=== PATIENT | male | born 1935 | race Caucasian/White ===

== ENCOUNTER 2018-02-18 10:41 | Day surgery (SDC) | payer MEDICARE, OTHER ==
[2018-02-17 10:36] VITALS: BMI 29.0
--- NOTE | 2018-02-18 06:32 | HP ---
HISTORY AND PHYSICAL CHIEF COMPLAINT: Fluid in the left middle ear space. HISTORY OF PRESENT ILLNESS: The patient is a pleasant 82-year-old male who was recently seen in my office complaining of having a plugged sensation in his left ear. At the time that the patient was seen in the office, clinical examination revealed fluid in the left middle ear space. The patient was placed on a course of oral steroids for approximately 2 weeks and then he was re-evaluated. 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 It was therefore recommended that he undergo a left myringotomy with insertion of ventilation tube, specifically a Michaela T-tube. The purpose of placing this tube in is because I advised the patient that if in fact there is no fluid and if the tube needs to be removed because it causes problems then this could be done with this type of tube. 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 PAST MEDICAL HISTORY: Past medical history reveals that the patient has no known allergies to medications. His current medications include sertraline, enalapril, donepezil and atorvastatin. REVIEW OF SYSTEMS: Review of systems reveals the cardiovascular system is positive for hypertension. Metabolic endocrine system is positive for hypercholesterolemia. The remainder of the review of systems is essentially unremarkable. PREVIOUS SURGERIES: Previous surgeries include a right tympanoplasty with mastoidectomy, bilateral cataract surgery, left herniorrhaphy. PHYSICAL EXAMINATION: Patient is a very pleasant 82-year-old male who is alert and cooperative. HEENT EXAMINATION: Patient is normocephalic. Right tympanic membrane is normal. Right middle ear space is free of any fluid or infection. Left tympanic membrane appears to be dull with suggestion of fluid in the left middle ear space. Pupils equal, round, and react to light and accommodation. Extraocular movements are within normal limits. Intranasal examination reveals moderate to severe septal deviation with compensatory hypertrophy of the inferior turbinates. Examination of oropharynx, cranial nerves 2 through 12 and the remainder of the head and neck exam are all within normal limits. CHEST/CARDIOVASCULAR: Both lung velez are clear to percussion and auscultation. The patient is in regular sinus rhythm. S1 and S2 are present without evidence of any murmurs, S3s or S4s. Peripheral pulses are bilaterally symmetrical and within normal limits. ABDOMEN: There is no evidence the masses megaly or tenderness. The abdomen is soft. Skin is unremarkable. Musculoskeletal and neurological are within normal limits. RECTAL EXAM: The rectal exam is deferred at this time because the patient has this done on a regular basis at his family physician's office. The remainder of the physical exam is unremarkable. IMPRESSION: Chronic left serous otitis media. PLAN: The patient is scheduled to undergo a left myringotomy with insertion of Michaela type T- type under either IV sedation with MAC or general anesthesia depending upon the anesthesia department's preference in the a.m. ATTENTION RNS IN THE PRE-SURGICAL AREA: I have not ordered any pre-surgical prophylactic antibiotics for this patient. If the pharmacy department sends any pre- surgical prophylactic antibiotics to the pre-surgical area for this patient, that order should be cancelled, the medication should be returned to the pharmacy, and make sure that the patient's account is credited appropriately. I have discussed the risks, benefits and alternative therapies for the above-mentioned procedure and for both sedation/analgesia as well as necessary blood product administration, if indicated, as they pertain to this patient. The patient has indicated his or her understanding and acceptance of the risks and procedures discussed. MMODL / IJN: [id number] /
[~2018-02-18 10:41] MED LIST: DEXAMETHASONE SOD PHOSPHATE 10 MG/ML 1 ML VIAL IV ONE; LACTATED RINGERS 1,000 ML IV SCH; LIDOCAINE 1% 20 ML VIAL (10MG/ML) FOR IV START INTRADERMA PRN; MIDAZOLAM 2 MG/2 ML VIAL IV PRN; ONDANSETRON 4 MG/2 ML VIAL IVP ONE; Pre Op ABX Message 1 EACH MISC MISCELLANE ONE; fentaNYL (PF) 50 MCG/ML 2 ML AMP IV PRN
[2018-02-18 12:37] VITALS: RESP 16
[2018-02-18] MEDS ORDERED: PROPOFOL 10 MG/ML 20 ML VIAL IV ONE (13:27)
[2018-02-18] MEDS ORDERED: MIDAZOLAM 2 MG/2 ML VIAL ONE (13:27)
[2018-02-18] MEDS ORDERED: ePHEDrine SULFATE/0.9% NACL/PF 50 MG/5 ML SYRINGE IV ONE (13:27)
[2018-02-18] MEDS ORDERED: OFLOXACIN 0.3% OPHTH DROPS 5 ML BOTTLE LEFT EAR ONE ×2 (13:41→13:55)
[2018-02-18] MEDS ORDERED: EPINEPHrine 1 MG/ML 1 ML AMP IRRIGATION ONE (13:54)
[2018-02-18 14:25] VITALS: TEMP 96.9
[2018-02-18 15:30] VITALS: BP 123/63; PULSE 46
--- NOTE | 2018-02-19 18:15 | OP ---
OPERATIVE REPORT DATE OF SURGERY: 02/18/2018. PREOP: Chronic left serous otitis media. POSTOPERATIVE DIAGNOSIS: Chronic left serous otitis media. ANESTHESIA: IV sedation with MAC. OPERATIVE PROCEDURE: Left myringotomy with insertion of Michaela type T-tube. SURGEON: Dr. Edmondson. COMPLICATIONS: None. ESTIMATED BLOOD LOSS: Zero. OPERATIVE PROCEDURE: The patient was placed on operating table in the supine position and after uneventful IV sedation, satisfactory sedation was obtained. Next the patient's left ear was draped in the appropriate fashion. Following this, using the Zeiss operating microscope and a #3 aural speculum, the left external auditory canal was cleansed of all wax and debris. Next, an incision was made in the anterior inferior quadrant of the left tympanic membrane. Initially, there was significant amount of bleeding and therefore the canal was irrigated with approximately 1 mL of epinephrine 1:100,000 to establish hemostasis. Following this, the previously made incision was slightly enlarged to accommodate the T-tube. Next, the Michaela -type T-tube was grasped with a pair of alligator forceps and was carefully inserted into the previously made myringotomy incision without difficulty. It is to be noted that there was a significant amount of scar tissue on the patient's tympanic membrane from previous ear infections as a child. At this point, the procedure was terminated. There were no intraoperative complications. The patient tolerated the procedure well and was returned to the recovery room in satisfactory condition. MMLUANA / UZMA: [id number] /
== END 2018-02-18 15:55 | disposition home or self-care (01) ==
LOC: OR 10:41
PROVIDERS: ATTEND Otolaryngology
DX: H65.22 Chronic serous otitis media, left ear (principal); I10 Essential (primary) hypertension; E78.5 Hyperlipidemia, unspecified; Z79.899 Other long term (current) drug therapy
CPT/HCPCS: 69436; J2250; J0171; J1100; J2405; J2704

== ENCOUNTER → 2020-09-27 | Outpatient (CLI) | payer MEDICARE, OTHER ==
[2020-09-27 20:35] LABS: HCT 39.2 % (39.6-50.0); HGB 12.3 g/dL (13.0-17.0); MCH 29.4 pg (27.0-32.0); MCHC 31.4 g/dL (32.0-37.0); MCV 93.8 fL (80.0-97.0); Mean Platelet Volume 12.3 fL (9.5-12.2); Platelet Count 261 X 10*3/uL (140-440); RBC 4.18 X 10*6/uL (4.40-5.60); RDW 12.9 % (11.5-14.5); WBC 6.19 X 10*3/uL (4.50-10.00)
[2020-09-27 21:36] LABS: African American GFR (CKD) 70.1 (60.0-200.0); Albumin/Globulin Ratio 2.11 (1.60-3.17); Anion Gap 6.1 mmol/L (4.00-12.00); BUN/Creat Ratio 22.73 Ratio (12.00-20.00); Calcium 9.4 mg/dL (8.7-10.3); Carbon Dioxide 25.9 mmol/L (21.6-31.8); Globulin 1.9 g/dL (1.6-3.3); Non-African American GFR(CKD) 60.5 (60.0-200.0); Potassium 4.7 mmol/L (3.5-5.5); Total Bilirubin 0.3 mg/dL (0.3-1.2); Total Protein 5.9 g/dL (6.2-8.2)
[2020-09-27 23:27] LABS: Folate, Serum 13.2 ng/mL
== END | disposition home or self-care (01) ==
LOC: LABWHC1 10:15
PROVIDERS: ATTEND Psychiatry & Neurology Pain Medicine
DX: R41.3 Other amnesia (principal); E55.9 Vitamin D deficiency, unspecified; D64.9 Anemia, unspecified
CPT/HCPCS: 36415; 80053; 82607; 82652; 82746; 83090; 84439; 84443; 84481; 85027

== ENCOUNTER 2021-02-10 12:21 | Inpatient (IN) | payer MEDICARE, OTHER ==
--- NOTE | 2021-02-10 13:16 | ED ---
General Adult HPI - General Chief complaint: Nausea/Vomiting/Diarrhea Stated complaint: Bradycardia Time Seen by Provider: 02/10/21 12:27 Source: EMS Mode of arrival: EMS Limitations: altered mental status - History of Present Illness Initial comments: Dictation was produced using [employer] dictation software. please excuse any grammatical, word or spelling errors. Chief Complaint: 85-year-old male presents with episode of nausea and groin pain since today History of Present Illness: 85-year-old value breakfast this morning. After breakfast he started having significant nausea. He states his nausea is associated diaphoresis. Denies any vomiting. Patient has been struggling with groin pain for the last several months. Back in April he coughed really hard because of Covid and cause a hernia to his right inguinal area. Patient has not seen a surgeon regarding this. He has been having intermittent episodes of right-sided groin pain since April. Patient states that he feels nauseated. Denies any significant abdominal pain at the moment. Groin pain appears to be stable for the last several weeks. The ROS documented in this emergency department record has been reviewed and confirmed by me. Those systems with pertinent positive or negative responses have been documented in the HPI. All other systems are other negative and/or noncontributory. PHYSICAL EXAM: General Impression: Alert and oriented x3, not in acute distress HEENT: Normocephalic atraumatic, extra-ocular movements intact, pupils equal and reactive to light bilaterally, mucous membranes moist. Cardiovascular: Heart regular rate and rhythm Chest: Able to complete full sentences, no retractions, no tachypnea Abdomen: abdomen soft, non-tender, non-distended, no organomegaly, bulge at the right inguinal area. There is a hernia noted. Hernia is reducible. Musculoskeletal: Pulses present and equal in all extremities, no peripheral karin a Motor: no focal deficits noted Neurological: CN II-XII grossly intact, no focal motor or sensory deficits noted Skin: Intact with no visualized rashes Psych: Normal affect and mood ED course: 85-year-old male presents to emergency department for nausea. Signs upon arrival shows heart rate of 49, worse vital signs within acceptable limits. Laboratory evaluation obtained. CBC unremarkable. Coag panel is negative. Metabolic panel is within acceptable limits. Slight dehydration with elevated BUN to 29. Rest metabolic panel is unremarkable. Abdominal x-ray shows ileus versus obstruction. Patient reevaluated at bedside at 2 PM found to be in stable medical condition. Is not actively nauseated. Patient be admitted to [facility] with general surgeon on consult. Family requested Dr. Becker. Case discussed with [place] nurse practitioner for [facility]. She is willing to accept patient care. EKG interpretation: Ventricular rate 40, sinus bradycardia, MN interval 180, QRS 104, QTC 435. No MN prolongation, no QTC prolongation, no ST or T-wave changes noted. Note EKG for comparison. No evidence of heart block. QRS is narrow. - Related Data Home Medications Medication Instructions Recorded Confirmed Atorvastatin [Lipitor] 20 mg PO DAILY 02/17/18 02/18/18 Donepezil [Aricept] 10 mg PO DAILY 02/17/18 02/18/18 Enalapril Maleate [Vasotec] 2.5 mg PO DAILY 02/17/18 02/18/18 Labetalol HCl 100 mg PO BID 02/17/18 02/18/18 Sertraline [Zoloft] 100 mg PO BID 02/17/18 02/18/18 Allergies Allergy/AdvReac Type Severity Reaction Status Date / Time No Known Allergies Allergy Verified 02/10/21 14:01 Review of Systems ROS Statement: Those systems with pertinent positive or pertinent negative responses have been documented in the HPI. ROS Other: All systems not noted in ROS Statement are negative. Past Medical History Past Medical History: Hypertension Additional Past Medical History / Comment(s): HYPOGLYCEMIA, SELF CATHETERIZAT ION, History of Any Multi-Drug Resistant Organisms: None Reported Past Surgical History: Prostate Surgery Past Anesthesia/Blood Transfusion Reactions: No Reported Reaction Past Psychological History: Anxiety Past Alcohol Use History: Occasional Past Drug Use History: None Reported - Past Family History Mother Family Medical History: No Reported History General Exam Limitations: altered mental status Course Vital Signs 02/10/21 12:33 Temperature 97.6 F Pulse Rate 49 L Respiratory 16 Rate Blood Pressure 135/65 O2 Sat by Pulse 94 L Oximetry Medical Decision Making - Lab Data Result diagrams: 02/10/21 13:12 02/10/21 13:12 Lab Results 02/10/21 02/10/21 02/10/21 Range/Units 13:12 13:12 13:12 WBC 6.9 (3.8-10.6) k/uL RBC 3.87 L (4.30-5.90) m/uL Hgb 12.3 L (13.0-17.5) gm/dL Hct 37.1 L (39.0-53.0) % MCV 95.8 (80.0-100.0) fL MCH 31.6 (25.0-35.0) pg MCHC 33.0 (31.0-37.0) g/dL RDW 13.8 (11.5-15.5) % Plt Count 197 (150-450) k/uL MPV 9.6 Neutrophils % 75 % Lymphocytes % 15 % Monocytes % 6 % Eosinophils % 2 % Basophils % 1 % Neutrophils # 5.2 (1.3-7.7) k/uL Lymphocytes # 1.1 (1.0-4.8) k/uL Monocytes # 0.4 (0-1.0) k/uL Eosinophils # 0.2 (0-0.7) k/uL Basophils # 0.0 (0-0.2) k/uL PT 10.9 (9.0-12.0) sec INR 1.0 (<1.2) APTT 22.3 (22.0-30.0) sec Sodium 138 (137-145) mmol/L Potassium 4.5 (3.5-5.1) mmol/L Chloride 107 (98-107) mmol/L Carbon Dioxide 25 (22-30) mmol/L Anion Gap 6 mmol/L BUN 29 H (9-20) mg/dL Creatinine 1.21 (0.66-1.25) mg/dL Est GFR (CKD-EPI)AfAm 63 (>60 ml/min/1.73 sqM) Est GFR (CKD-EPI)NonAf 54 (>60 ml/min/1.73 sqM) Glucose 117 H (74-99) mg/dL Plasma Lactic Acid Gurvinder (0.7-2.0) mmol/L Calcium 9.2 (8.4-10.2) mg/dL Magnesium 2.0 (1.6-2.3) mg/dL Total Bilirubin 0.3 (0.2-1.3) mg/dL AST 32 (17-59) U/L ALT 16 (4-49) U/L Alkaline Phosphatase 44 (38-126) U/L Total Protein 5.9 L (6.3-8.2) g/dL Albumin 3.6 (3.5-5.0) g/dL Lipase 133 (23-300) U/L 02/10/21 Range/Units 13:12 WBC (3.8-10.6) k/uL RBC (4.30-5.90) m/uL Hgb (13.0-17.5) gm/dL Hct (39.0-53.0) % MCV (80.0-100.0) fL MCH (25.0-35.0) pg MCHC (31.0-37.0) g/dL RDW (11.5-15.5) % Plt Count (150-450) k/uL MPV Neutrophils % % Lymphocytes % % Monocytes % % Eosinophils % % Basophils % % Neutrophils # (1.3-7.7) k/uL Lymphocytes # (1.0-4.8) k/uL Monocytes # (0-1.0) k/uL Eosinophils # (0-0.7) k/uL Basophils # (0-0.2) k/uL PT (9.0-12.0) sec INR (<1.2) APTT (22.0-30.0) sec Sodium (137-145) mmol/L Potassium (3.5-5.1) mmol/L Chloride (98-107) mmol/L Carbon Dioxide (22-30) mmol/L Anion Gap mmol/L BUN (9-20) mg/dL Creatinine (0.66-1.25) mg/dL Est GFR (CKD-EPI)AfAm (>60 ml/min/1.73 sqM) Est GFR (CKD-EPI)NonAf (>60 ml/min/1.73 sqM) Glucose (74-99) mg/dL Plasma Lactic Acid Gurvinder 1.2 (0.7-2.0) mmol/L Calcium (8.4-10.2) mg/dL Magnesium (1.6-2.3) mg/dL Total Bilirubin (0.2-1.3) mg/dL AST (17-59) U/L ALT (4-49) U/L Alkaline Phosphatase (38-126) U/L Total Protein (6.3-8.2) g/dL Albumin (3.5-5.0) g/dL Lipase (23-300) U/L Disposition Clinical Impression: Ileus Disposition: ADMITTED IP TO THIS HOSP Condition: Fair Referrals: Chapincito Lee MD [Primary Care Provider] - 1-2 days
[2021-02-10 13:31] LABS: Basophils % (A) 1 %; Eosinophils # (A) 0.2 k/uL (0-0.7); Eosinophils % (A) 2 %; HCT 37.1 % (39.0-53.0); HGB 12.3 gm/dL (13.0-17.5); Lymphocytes # (A) 1.1 k/uL (1.0-4.8); Lymphocytes % (A) 15 %; MCH 31.6 pg (25.0-35.0); MCV 95.8 fL (80.0-100.0); Mean Platelet Volume 9.6; Monocytes # (A) 0.4 k/uL (0-1.0); Monocytes % (A) 6 %; Neutrophils # (A) 5.2 k/uL (1.3-7.7); Neutrophils % (A) 75 %; Platelet Count 197 k/uL (150-450); RBC 3.87 m/uL (4.30-5.90); RDW 13.8 % (11.5-15.5); WBC 6.9 k/uL (3.8-10.6)
[2021-02-10 13:40] LABS: Albumin 3.6 g/dL (3.5-5.0); Calcium 9.2 mg/dL (8.4-10.2); Potassium 4.5 mmol/L (3.5-5.1); Total Bilirubin 0.3 mg/dL (0.2-1.3); Total Protein 5.9 g/dL (6.3-8.2)
[2021-02-10 13:47] LABS: Partial Thromboplastin Time 22.3 sec (22.0-30.0); Prothrombin Time 10.9 sec (9.0-12.0)
--- NOTE | 2021-02-10 13:52 | XR ---
EXAMINATION TYPE: XR abdomen acute w cxr DATE OF EXAM: 02/10/2021 COMPARISON: NONE HISTORY: Nausea RLQ pain TECHNIQUE: Supine, upright, and left side down lateral decubitus views of the abdomen are obtained. FINDINGS: Arthropathy of the shoulders. Hyperinflation. Heart size normal. No overt failure or pleura l effusion. No pneumothorax. Chronic rib deformities noted. Calcification suspected within the prostate. Additional vascular calcifications noted. Arthropathy of the shoulders degenerative changes spine. There are dilated bowel loops in the abdomen. IMPRESSION: Correlate for ileus or obstruction.
[2021-02-10] MEDS ORDERED: NALOXONE 0.4 MG/ML 1 ML VIAL IV PRN ×2 (14:02→14:03)
[2021-02-10] MEDS ORDERED: ONDANSETRON 4 MG/2 ML VIAL IVP PRN (14:02)
[2021-02-10] MEDS ORDERED: MELATONIN 3 MG TABLET PO PRN (14:03)
[2021-02-10] MEDS ORDERED: HYDROcodone/APAP 5-325MG 1 EACH TAB PO PRN (14:03)
[2021-02-10] MEDS ORDERED: ACETAMINOPHEN TAB 325 MG TAB PO PRN (14:03)
[2021-02-10] MEDS ORDERED: SODIUM CHLORIDE 0.9% 1,000 ML IV SCH (14:15)
[2021-02-10] MEDS ORDERED: IPRATROPIUM-ALBUTEROL 3 ML NEB INHALATION PRN (14:19)
[2021-02-10] MEDS: SODIUM CHLORIDE 0.9% 1,000 ML IV SCH (14:55)
--- NOTE | 2021-02-10 15:50 | P.HPIM ---
<Calvin Swain - Last Filed: 02/10/21 16:54> History of Present Illness H&P Date: 02/10/21 History of Presenting Illness: Patient is a very pleasant 85-year-old male with a past medical history of hypertension, hyperlipidemia, inguinal hernia and BPH with urinary retention resulting in need for daily self-catheterization. Patient presented to the emergency department with a chief complaint of right lower quadrant abdominal pain radiating into his right groin accompanied by significant nausea. He was seen and fully evaluated in the emergency department. Acute abdominal x-ray series was completed concerning for ileus versus obstruction. CBC, BMP, coags, liver profile, and lipase showing no significant abnormalities. EKG completed revealing sinus bradycardia at 48 bpm with no noted T-wave or ST abnormalities, no previous EKGs available for comparison. Patient currently reports mild discomfort to right lower quadrant and groin described more as an aching sensation. He states nausea currently has resided. He denies having any other complaints at this time including recent fevers, headache, diaphoresis, chills, lightheadedness, dizziness, chest pain, palpitations, shortness of breath, or dyspnea with exertion. Patient denies having any episodes of vomiting and reports normal bowel function was last bowel movement being yesterday morning. Patient does report coughing yesterday and feeling a "pop" in his right lower quadrant but denies having any pain or nausea until this morning. Review of systems: Pertinent positives and negatives as discussed in HPI, a complete review of systems was performed and all other systems are negative. Physical exam: Vital signs reviewed and stable. General: Nontoxic, no distress and appears stated age. Derm: Skin warm and dry, normal coloration for ethnicity. Head: Atraumatic, normocephalic and symmetric. Eyes: EOMs intact, no lid lag, and anicteric sclera Mouth: no lip lesions, mucus membranes moist Cardiovascular: regular rate and rhythm with normal S1S2, soft murmur present, positive posterior tibial pulses bilaterally, and cap refill < 2 seconds. Lungs: Respirations even, regular, and unlabored on room air. Lungs CTA bilaterally, no rhonchi, no rales, no wheezing, and no accessory muscle usage. Abdominal: soft, slight tenderness to right lower quadrant upon palpation, no guarding, no appreciable organomegaly Ext: ROM intact. No gross muscle atrophy, no edema, no contractures Neuro: Speech clear, face symmetrical and CN II-XII grossly intact with no noted focal neuro deficits Psych: Alert and oriented to person, place, time, and situation. Appropriate and pleasant affect. Assessment and Plan of Care: Right lower quadrant abdominal/groin pain accompanied by nausea concerning for ileus versus obstruction -Acute abdominal x-ray series was completed concerning for ileus versus obstruction. -Gen. surgery consulted. -NPO until cleared by general surgery. -Continued hydration with IV fluids. -Symptomatic care and pain management with Zofran as needed for nausea/vomiting and workup was needed for pain. Hypertension Monitor vital signs and continue daily medication regimen with lisinopril Hyperlipidemia Continue daily medication regimen with atorvastatin. The patient is admitted with an anticipated greater than 2 midnight stay for evaluation of ileus versus obstruction. CODE STATUS: Full code DVT prophylaxis: Heparin Discussed with: Patient, RN, and patient's . Anticipated discharge date: Clinical course to determine Anticipated discharge place: Home A total of 45 minutes was spent on the care of this complex patient more than 50% of the time was spent in counseling and care coordination. Past Medical History Past Medical History: Hypertension Additional Past Medical History / Comment(s): HYPOGLYCEMIA, SELF CATHETERIZATION, History of Any Multi-Drug Resistant Organisms: None Reported Past Surgical History: Prostate Surgery Past Anesthesia/Blood Transfusion Reactions: No Reported Reaction Past Psychological History: Anxiety Past Alcohol Use History: Occasional Past Drug Use History: None Reported - Past Family History Mother Family Medical History: No Reported History Medications and Allergies Home Medications Medication Instructions Recorded Confirmed Type Atorvastatin [Lipitor] 20 mg PO DAILY 02/17/18 02/10/21 History Enalapril [Vasotec] 5 mg PO DAILY 02/10/21 02/10/21 History HYDROcodone/APAP 5-325MG [[place] 1 tab PO AC-TID 02/10/21 02/10/21 History 5-325] Ipratropium-Albuterol Nebulize 3 ml INHALATION RT-TID PRN 02/10/21 02/10/21 History [Duoneb 0.5 mg-3 mg/3 ml Soln] Memantine [Namenda] 10 mg PO BID 02/10/21 02/10/21 History Polyethylene Glycol 3350 [Miralax] 17 gm PO DAILY PRN 02/10/21 02/10/21 History Primidone [Mysoline] 50 mg PO HS 02/10/21 02/10/21 History Sertraline [Zoloft] 50 mg PO BID-W/MEALS 02/10/21 02/10/21 History Allergies Allergy/AdvReac Type Severity Reaction Status Date / Time No Known Allergies Allergy Verified 02/10/21 14:01 Physical Exam Vitals: Vital Signs Temp Pulse Resp BP Pulse Ox 02/10/21 14:46 56 L 18 115/63 97 02/10/21 12:33 97.6 F 49 L 16 135/65 94 L Intake and Output 02/10/21 02/10/21 02/10/21 06:59 14:59 22:59 Other: Weight 77.111 kg Results CBC & Chem 7: 02/10/21 13:12 02/10/21 13:12 Labs: Abnormal Lab Results - Last 24 Hours (Table) 02/10/21 02/10/21 Range/Units 13:12 13:12 RBC 3.87 L (4.30-5.90) m/uL Hgb 12.3 L (13.0-17.5) gm/dL Hct 37.1 L (39.0-53.0) % BUN 29 H (9-20) mg/dL Glucose 117 H (74-99) mg/dL Total Protein 5.9 L (6.3-8.2) g/dL <[email or web address] - Last Filed: 02/10/21 17:49> Physical Exam Vitals: Vital Signs Temp Pulse Resp BP Pulse Ox 02/10/21 17:25 74 18 133/55 95 02/10/21 16:58 60 02/10/21 16:48 60 02/10/21 14:46 56 L 18 115/63 97 02/10/21 12:33 97.6 F 49 L 16 135/65 94 L Intake and Output 02/10/21 02/10/21 02/10/21 06:59 14:59 22:59 Other: Weight 77.111 kg Results CBC & Chem 7: 02/10/21 13:12 02/10/21 13:12 Labs: Abnormal Lab Results - Last 24 Hours (Table) 02/10/21 02/10/21 Range/Units 13:12 13:12 RBC 3.87 L (4.30-5.90) m/uL Hgb 12.3 L (13.0-17.5) gm/dL Hct 37.1 L (39.0-53.0) % BUN 29 H (9-20) mg/dL Glucose 117 H (74-99) mg/dL Total Protein 5.9 L (6.3-8.2) g/dL Assessment and Plan Assessment: Patient was seen, evaluated, and examined by me in the ER. Patient appears comfortable when I saw him. He just had a bowel movement prior to my evaluation. Patient said that his right inguinal hernia is often times painful and get worse when he is constipated. He denies any nausea or vomiting. Abdominal x-ray showed possible bowel obstruction but physical exam showed no distention. The abdomen was soft and nontender. Patient has some underlying dementia and his at bedside is taking charge of his care. She told me that they attempted to see Dr. Palumbo in the office sooner but could not find an appointment. She requested Dr. Hadley to see the patient in the hospital. I dis cussed the case over the phone with the surgeon. Plan to obtain computed tomography scan of the abdomen and pelvis for further evaluation. I would keep the patient nothing by mouth for now and continue IV fluid hydration.
[2021-02-10] MEDS: SERTRALINE 50 MG TAB PO SCH (18:23)
[2021-02-10] MEDS: PRIMIDONE 50 MG TAB PO SCH (20:52)
[2021-02-10] MEDS: HEPARIN SODIUM,PORCINE/PF 5,000 UNIT/0.5 ML SYRINGE SQ SCH (20:52)
[2021-02-10] MEDS: MEMANTINE 10 MG TAB PO SCH (20:52)
[2021-02-11] MEDS: SODIUM CHLORIDE 0.9% 1,000 ML IV SCH ×4 (02:44→23:05)
[2021-02-11 06:29] LABS: Basophils % (A) 1 %; Eosinophils # (A) 0.1 k/uL (0-0.7); Eosinophils % (A) 3 %; HCT 36.3 % (39.0-53.0); HGB 11.9 gm/dL (13.0-17.5); Lymphocytes # (A) 1.3 k/uL (1.0-4.8); Lymphocytes % (A) 26 %; MCH 31.4 pg (25.0-35.0); MCHC 32.9 g/dL (31.0-37.0); MCV 95.4 fL (80.0-100.0); Mean Platelet Volume 9.7; Monocytes # (A) 0.4 k/uL (0-1.0); Monocytes % (A) 8 %; Neutrophils % (A) 61 %; Platelet Count 178 k/uL (150-450); RDW 13.5 % (11.5-15.5)
[2021-02-11] MEDS: SERTRALINE 50 MG TAB PO SCH ×2 (06:39→18:01)
[2021-02-11] MEDS ORDERED: IOPAMIDOL CONTRAST (ORAL USE) VIAL PO PRN (07:00)
--- NOTE | 2021-02-11 09:24 | P.PN ---
<Calvin Swain - Last Filed: 02/11/21 14:40> Subjective Progress Note Date: 02/11/21 Hospital course: Patient is a very pleasant 85-year-old male with a past medical history of hyp ertension, hyperlipidemia, inguinal hernia and BPH with urinary retention resulting in need for daily self-catheterization. Patient presented to the emergency department with a chief complaint of right lower quadrant abdominal pain radiating into his right groin accompanied by significant nausea. He was seen and fully evaluated in the emergency department. Acute abdominal x-ray series was completed concerning for ileus versus obstruction. CBC, BMP, coags, liver profile, and lipase showing no significant abnormalities. EKG completed revealing sinus bradycardia at 48 bpm with no noted T-wave or ST abnormalities, no previous EKGs available for comparison. Patient denied having any episodes of vomiting and reported normal bowel function with last bowel movement being the morning of 02/09/21. Patient does report coughing on 02/09/21 and feeling a "pop" in his right lower quadrant but denies having any pain or nausea until the morning of 02/10/21. Physical exam: Patient seen and fully evaluated at the bedside. He reports continued pain/discomfort to right groin that he describes today as being sharp and denies having any other complaints at this time including headache, diaphoresis, chills, lightheadedness, dizziness, chest pain, palpitations, shortness of breath, dyspnea with exertion, nausea, or vomiting. Vital signs reviewed and stable. General: Nontoxic, no distress and appears stated age. Derm: Skin warm and dry, normal coloration for ethnicity. Head: Atraumatic, normocephalic and symmetric. Eyes: EOMs intact, no lid lag, and anicteric sclera Mouth: no lip lesions, mucus membranes moist Cardiovascular: regular rate and rhythm with normal S1S2, soft murmur present, positive posterior tibial pulses bilaterally, and cap refill < 2 seconds. Lungs: Respirations even, regular, and unlabored on room air. Lungs CTA bilaterally, no rhonchi, no rales, no wheezing, and no accessory muscle usage. Abdominal: soft, slight tenderness to right lower quadrant and groin upon light palpation, no guarding, no appreciable organomegaly Ext: ROM intact. No gross muscle atrophy, no edema, no contractures Neuro: Speech clear, face symmetrical and CN II-XII grossly intact with no noted focal neuro deficits Psych: Alert and oriented to person, place, time, and situation. Appropriate and pleasant affect. Assessment and Plan of Care: Right lower quadrant abdominal/groin pain accompanied by nausea concerning for ileus versus obstruction -Acute abdominal x-ray series was completed concerning for ileus versus obstruction. -Gen. surgery consulted. -CT abdomen and pelvis revealing severe bladder wall thickening, hypertrophic, or cystitis with thickening along the right fundus unable to rule out neoplasm. Enlarged prostate. Mild circumferential wall thickening to his distal esophagus possibly representing small hiatal hernia or esophagitis. Bilateral renal cysts findings could represent some chronic inflammation or ascending urinary tract infection. Moderate sized right inguinal hernia containing fat and vessels measuring 6.5 cm long some stranding could possibly represent mild inflammation. -Order placed for urinalysis which was positive for infection, urine culture to be obtained. -Continued hydration with IV fluids. -Symptomatic care and pain management with Zofran as needed for nausea/vomiting and workup was needed for pain. Acute cystitis -CT abdomen and pelvis revealing severe bladder wall thickening, hypertrophic, or cystitis with thickening along the right fundus unable to rule out neoplasm. Enlarged prostate. Mild circumferential wall thickening to his distal esophagus possibly representing small hiatal hernia or esophagitis. Bilateral renal cysts findings could represent some chronic inflammation or ascending urinary tract infection. Moderate sized right inguinal hernia containing fat and vessels measuring 6.5 cm long some stranding could possibly represent mild inflammation. -Urinalysis positive for infection, urine culture. -IV antibiotic Rocephin -Bladder management, bladder scan for postvoid residuals -Consult to urology for enlarged prostate and concerns of bladder wall thickening to further evaluate for possible neoplastic process. Hypertension Monitor vital signs and continue daily medication regimen with lisinopril Hyperlipidemia Continue daily medication regimen with atorvastatin. The patient is admitted with an anticipated greater than 2 midnight stay for evaluation of ileus versus obstruction. CODE STATUS: Full code DVT prophylaxis: Heparin Discussed with: Patient and RN Anticipated discharge date: Clinical course to determine Anticipated discharge place: Home A total of 45 minutes was spent on the care of this complex patient more than 50% of the time was spent in counseling and care coordination. Objective - Vital Signs Vital signs: Vital Signs Temp 98.1 F 02/11/21 07:59 Pulse 53 L 02/11/21 07:59 Resp 17 02/11/21 07:59 BP 156/82 02/11/21 07:59 Pulse Ox 96 02/11/21 07:59 Intake & Output 02/10/21 02/11/21 02/11/21 18:59 06:59 18:59 Weight 77.111 kg Other: Voiding Method Self-Catheterization # Voids 1 - Labs CBC & Chem 7: 02/11/21 05:44 02/11/21 05:44 Labs: Abnormal Lab Results - Last 24 Hours (Table) 02/10/21 02/10/21 02/11/21 Range/Units 13:12 13:12 05:44 RBC 3.87 L 3.80 L (4.30-5.90) m/uL Hgb 12.3 L 11.9 L (13.0-17.5) gm/dL Hct 37.1 L 36.3 L (39.0-53.0) % BUN 29 H (9-20) mg/dL Glucose 117 H (74-99) mg/dL Total Protein 5.9 L (6.3-8.2) g/dL <Kayla Foster - Last Filed: 02/11/21 20:00> Subjective Calvin Swain NP rendered care for this patient independently, reviewed the findings and plan as documented in the note above. I did not physically speak with or examine the patient on this date. Objective - Vital Signs Vital signs: Vital Signs Temp 97.8 F 02/11/21 11:51 Pulse 50 L 02/11/21 11:51 Resp 17 02/11/21 11:51 BP 144/73 02/11/21 11:51 Pulse Ox 96 02/11/21 11:51 Intake & Output 02/11/21 02/11/21 02/12/21 06:59 18:59 06:59 Other: Voiding Method Self-Catheterization Self-Catheterization # Voids 1 3 - Labs CBC & Chem 7: 02/11/21 05:44 02/11/21 05:44 Labs: Abnormal Lab Results - Last 24 Hours (Table) 02/11/21 02/11/21 02/11/21 Range/Units 05:44 05:44 12:45 RBC 3.80 L (4.30-5.90) m/uL Hgb 11.9 L (13.0-17.5) gm/dL Hct 36.3 L (39.0-53.0) % Chloride 110 H (96-109) mmol/L BUN/Creatinine Ratio 24.55 H (12.00-20.00) Ratio Calcium 8.5 L (8.7-10.3) mg/dL Alkaline Phosphatase 39 L (41-126) U/L Total Protein 5.5 L (6.2-8.2) g/dL Albumin 3.50 L (3.80-4.90) g/dL Urine Protein Trace H (Negative) Urine Blood Small H (Negative) Ur Leukocyte Esterase Large H (Negative) Urine RBC 8 H (0-5) /hpf Urine WBC 133 H (0-5) /hpf Urine WBC Clumps Few H (None) /hpf Urine Bacteria Occasional H (None) /hpf Urine Mucus Rare H (None) /hpf
[2021-02-11] MEDS: ATORVASTATIN 20 MG TAB PO SCH (09:46)
[2021-02-11] MEDS: HEPARIN SODIUM,PORCINE/PF 5,000 UNIT/0.5 ML SYRINGE SQ SCH ×2 (09:46→21:33)
[2021-02-11] MEDS: lisinopriL 10 MG TAB PO SCH (09:46)
[2021-02-11] MEDS: MEMANTINE 10 MG TAB PO SCH ×2 (09:47→21:33)
--- NOTE | 2021-02-11 10:02 | CT ---
EXAMINATION TYPE: CT abdomen pelvis w con DATE OF EXAM: 02/11/2021 COMPARISON: NONE HISTORY: 85-year-old male abdominal pain, Right inguinal hernia TECHNIQUE: Contiguous axial scanning of the abdomen and pelvis following administration of 100 ml Iso erlin 300 IV contrast. Delayed images through the kidneys and coronal/sagittal reconstructions perform ed. CT DLP: 681.7 mGycm Automated exposure control for dose reduction was used. FINDINGS: Heart normal size without pericardial effusion. Strandy atelectasis in the lower lungs without pleura l effusion. Mild circumferential wall thickening distal esophagus could represent a small hiatal hernia or esopha gitis. Correlate with patient's symptoms. 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 A couple small hypodensities left hepatic dome too small for accurate CT characterization, measuring up to 8 mm, likely small cysts. Portal venous system is patent. No biliary ductal dilatation. Gallbladder, adrenal glands, spleen, and pancreas within normal limits. Bilateral renal cysts, approximately 4 on the right and 6 on the left. In addition, there are bilater al extrarenal pelves. Possible mild urothelial thickening on the left. Slight delay in excretion of c ontrast from both kidneys. Correlate with BUN and creatinine. No dilated small bowel, free fluid, or free air. No mesenteric or retroperitoneal lymphadenopathy. Normal appendix. Scattered colonic diverticulosis, greatest in the left-sided colon. No pericolonic i nflammatory change. Fairly severe bladder wall thickening. Especially with collapsed bladder extending towards the right fundus with greater degree of thickening, refer to coronal image 38 and axial images 58. There is a moderate-sized indirect right inguinal hernia that contains mesenteric fat and vessels maribel suring up to 6.5 cm long. The mild strandy density in this region. Right-sided pelvic phleboliths. Prostate gland is enlarged measuring 5.5 cm wide by 5.5 cm AP by 5.0 cm craniocaudal. Curvilinear calcifications are present within. Bones: Moderate degenerative changes at the hips and SI joints. Baastrup's disease. Moderate degenera tive disc disease throughout hypertrophic facet arthropathy. IMPRESSION: 1. SEVERE BLADDER WALL THICKENING. CORRELATE FOR NEUROGENIC BLADDER, HYPERTROPHY, OR CYSTITIS. THICKE ROBY IS GREATER ALONG THE RIGHT FUNDUS. NEOPLASM SHOULD BE EXCLUDED. CORRELATE WITH URINE CYTOLOGY AN D DIRECT VISUALIZATION INDICATED. 2. ENLARGED PROSTATE GLAND MEASURING UP TO 5.5 CM. CORRELATE WITH PSA VALUES AND PATIENT'S SYMPTOMS T O ASSESS FOR UNDERLYING BPH OR PROSTATE CANCER. 3. MILD CIRCUMFERENTIAL WALL THICKENING DISTAL ESOPHAGUS COULD REPRESENT A SMALL HIATAL HERNIA OR ESO PHAGITIS. CORRELATE WITH PATIENT'S SYMPTOMS TO DETERMINE THE NEED FOR DIRECT VISUALIZATION. 4. BILATERAL RENAL CYSTS MEASURING UP TO 3.3 CM. POSSIBLE SLIGHT UROTHELIAL THICKENING ON THE LEFT. F INDINGS COULD REPRESENT SOME CHRONIC INFLAMMATION OR ASCENDING URINARY TRACT INFECTION. 5. ALSO, DELAY IN EXCRETION OF CONTRAST FROM BOTH KIDNEYS. CORRELATE WITH KIDNEY FUNCTION TO EXCLUDE DANIELE. 6. MODERATE SIZED RIGHT INGUINAL HERNIA CONTAINING FAT AND VESSELS MEASURING 6.5 CM LONG. SOME STRAND ING HERE COULD REPRESENT MILD INFLAMMATION.
[2021-02-11 10:22] LABS: African American GFR (CKD) 70.1 (60.0-200.0); Albumin 3.5 g/dL (3.80-4.90); Albumin/Globulin Ratio 1.75 (1.60-3.17); Anion Gap 6.4 mmol/L (4.00-12.00); BUN/Creat Ratio 24.55 Ratio (12.00-20.00); Calcium 8.5 mg/dL (8.7-10.3); Carbon Dioxide 24.6 mmol/L (21.6-31.8); Magnesium 1.9 mg/dL (1.5-2.4); Non-African American GFR(CKD) 60.5 (60.0-200.0); Potassium 4.2 mmol/L (3.5-5.5); Total Bilirubin 0.4 mg/dL (0.2-1.2); Total Protein 5.5 g/dL (6.2-8.2)
[2021-02-11 13:31] LABS: Appearance,Urine Cloudy (Clear); Bacteria,Urine Occasional /hpf; Bilirubin,Urine Negative (Negative); Blood,Urine Small (Negative); Color,Urine Light Yellow; Glucose,Urine (UA) Negative (Negative); Ketones,Urine Negative (Negative); Leukocyte Esterase,Urine Large (Negative); Mucus,Urine Rare /hpf; Nitrite,Urine Negative (Negative); Protein,Urine Trace (Negative); RBC,Urine 8 /hpf (0-5); Specific Gravity,Urine 1.017 (1.001-1.035); Squamous Epithelial Cell,Urine <1 /hpf (0-4); Urobilinogen,Urine <2.0 mg/dL (<2.0); WBC,Urine 133 /hpf (0-5)
--- NOTE | 2021-02-11 18:02 | P.GSCN ---
History of Present Illness Consult date: 02/11/21 Reason for Consult: Right inguinal hernia History of present illness: Patient came to the hospital complaining of bad nausea and vague abdominal discomfort. Patient has had a hernia right groin since April of last year. Hernia is reducible. Abdominal x-rays showed dilated small bowel loops. Initial appearance of the x-rays also suggested possible sigmoid volvulus. CAT scan was performed this morning which showed no evidence of bowel obstruction. Mild inflammation at hernia site without evidence of strangulation or incarceration. Patient is no longer nauseous. Denies pain currently. Patient's and I spoke by phone. Patient has a history of chronic urinary catheterization. His recent urinalysis performed in his doctor's office apparently did show a urinary infection. His doctor's requested that he began IV antibiotics for urinary infection. Patient is afebrile. White blood cell count is normal. Review of Systems The patient denies any acute changes in vision no dysphagia or odynophagia, no chest pain or shortness of breath, no dysuria or hematuria, no headache, no runny nose, no rectal bleeding or melena, no unexplained weight loss Past Medical History Past Medical History: Hypertension Additional Past Medical History / Comment(s): HYPOGLYCEMIA, SELF CATHETERIZATION, History of Any Multi-Drug Resistant Organisms: None Reported Past Surgical History: Prostate Surgery Past Anesthesia/Blood Transfusion Reactions: No Reported Reaction Past Psychological History: Anxiety Past Alcohol Use History: Occasional Past Drug Use History: None Reported - Past Family History Mother Family Medical History: No Reported History Medications and Allergies Home Medications Medication Instructions Recorded Confirmed Type Atorvastatin [Lipitor] 20 mg PO DAILY 02/17/18 02/10/21 History Enalapril [Vasotec] 5 mg PO DAILY 02/10/21 02/10/21 History HYDROcodone/APAP 5-325MG [[place] 1 tab PO AC-TID 02/10/21 02/10/21 History 5-325] Ipratropium-Albuterol Nebulize 3 ml INHALATION RT-TID PRN 02/10/21 02/10/21 History [Duoneb 0.5 mg-3 mg/3 ml Soln] Memantine [Namenda] 10 mg PO BID 02/10/21 02/10/21 History Polyethylene Glycol 3350 [Miralax] 17 gm PO DAILY PRN 02/10/21 02/10/21 History Primidone [Mysoline] 50 mg PO HS 02/10/21 02/10/21 History Sertraline [Zoloft] 50 mg PO BID-W/MEALS 02/10/21 02/10/21 History Allergies Allergy/AdvReac Type Severity Reaction Status Date / Time No Known Allergies Allergy Verified 02/10/21 14:01 Surgical - Exam Vital Signs Temp Pulse Resp BP Pulse Ox 97.6 F 49 L 16 135/65 94 L 02/10/21 12:33 02/10/21 12:33 02/10/21 12:33 02/10/21 12:33 02/10/21 12:33 Physical exam: General: Well-developed, well-nourished HEENT: Normocephalic, sclerae nonicteric Abdomen: Nontender, nondistended, reducible right inguinal hernia Extremities: No edema Neuro: Alert and oriented Results - Labs 02/11/21 05:44 02/11/21 05:44 Abnormal Lab Results - Last 24 Hours (Table) 02/11/21 02/11/21 02/11/21 Range/Units 05:44 05:44 12:45 RBC 3.80 L (4.30-5.90) m/uL Hgb 11.9 L (13.0-17.5) gm/dL Hct 36.3 L (39.0-53.0) % Chloride 110 H (96-109) mmol/L BUN/Creatinine Ratio 24.55 H (12.00-20.00) Ratio Calcium 8.5 L (8.7-10.3) mg/dL Alkaline Phosphatase 39 L (41-126) U/L Total Protein 5.5 L (6.2-8.2) g/dL Albumin 3.50 L (3.80-4.90) g/dL Urine Protein Trace H (Negative) Urine Blood Small H (Negative) Ur Leukocyte Esterase Large H (Negative) Urine RBC 8 H (0-5) /hpf Urine WBC 133 H (0-5) /hpf Urine WBC Clumps Few H (None) /hpf Urine Bacteria Occasional H (None) /hpf Urine Mucus Rare H (None) /hpf Diabetes panel 02/11/21 Range/Units 05:44 Sodium 141 (135-145) mmol/L Potassium 4.2 (3.5-5.5) mmol/L Chloride 110 H (96-109) mmol/L Carbon Dioxide 24.6 (21.6-31.8) mmol/L BUN 27.0 (9.0-27.0) mg/dL Creatinine 1.1 (0.6-1.5) mg/dL Glucose 88 (70-110) mg/dL Calcium 8.5 L (8.7-10.3) mg/dL AST 24 (14-35) U/L ALT 19 (10-49) U/L Alkaline Phosphatase 39 L (41-126) U/L Total Protein 5.5 L (6.2-8.2) g/dL Albumin 3.50 L (3.80-4.90) g/dL Calcium panel 02/11/21 Range/Units 05:44 Calcium 8.5 L (8.7-10.3) mg/dL Albumin 3.50 L (3.80-4.90) g/dL Pituitary panel 02/11/21 Range/Units 05:44 Sodium 141 (135-145) mmol/L Potassium 4.2 (3.5-5.5) mmol/L Chloride 110 H (96-109) mmol/L Carbon Dioxide 24.6 (21.6-31.8) mmol/L BUN 27.0 (9.0-27.0) mg/dL Creatinine 1.1 (0.6-1.5) mg/dL Glucose 88 (70-110) mg/dL Calcium 8.5 L (8.7-10.3) mg/dL Adrenal panel 02/11/21 Range/Units 05:44 Sodium 141 (135-145) mmol/L Potassium 4.2 (3.5-5.5) mmol/L Chloride 110 H (96-109) mmol/L Carbon Dioxide 24.6 (21.6-31.8) mmol/L BUN 27.0 (9.0-27.0) mg/dL Creatinine 1.1 (0.6-1.5) mg/dL Glucose 88 (70-110) mg/dL Calcium 8.5 L (8.7-10.3) mg/dL Total Bilirubin 0.4 (0.2-1.2) mg/dL AST 24 (14-35) U/L ALT 19 (10-49) U/L Alkaline Phosphatase 39 L (41-126) U/L Total Protein 5.5 L (6.2-8.2) g/dL Albumin 3.50 L (3.80-4.90) g/dL Assessment and Plan (1) Right inguinal hernia Narrative/Plan: 85-year-old male with symptomatic reducible right inguinal hernia. Patient with urinary infection diagnosed as outpatient per family. Discussed options with the patient's and the patient. Recommend repair in the next 1-2 weeks of the patient's right inguinal hernia using an open approach with mesh. Would prefer course of antibiotics for UTI at least initiated if not completed given the anticipation that prosthetic mesh will be necessary. Resume diet at this time. We'll reassess in a.m. Current Visit: Yes Status: Acute Code(s): K40.90 - UNIL INGUINAL HERNIA, W/O OBST OR GANGR, NOT SPCF RECUR SNOMED Code(s): 297097246
[2021-02-11 20:16] VITALS: RESP 16
[2021-02-11] MEDS: PRIMIDONE 50 MG TAB PO SCH (21:33)
[2021-02-12 05:48] VITALS: BP 144/67; PULSE 55; TEMP 98.2
[2021-02-12] MEDS: HEPARIN SODIUM,PORCINE/PF 5,000 UNIT/0.5 ML SYRINGE SQ SCH (08:16)
[2021-02-12] MEDS: ATORVASTATIN 20 MG TAB PO SCH (08:17)
[2021-02-12] MEDS: lisinopriL 10 MG TAB PO SCH (08:17)
[2021-02-12] MEDS: MEMANTINE 10 MG TAB PO SCH (08:18)
[2021-02-12] MEDS: SERTRALINE 50 MG TAB PO SCH (08:18)
--- NOTE | 2021-02-12 11:08 | P.DS ---
<Calvin Swain - Last Filed: 02/12/21 10:45> Providers Expected date of discharge: 02/12/21 Hospital Course: Discharge Diagnosis: Inguinal hernia Acute cystitis Hypertension Hyperlipidemia Hospital Course: Patient is a very pleasant 85-year-old male with a past medical history of hypertension, hyperlipidemia, inguinal hernia and BPH with urinary retention resulting in need for daily self-catheterization. Patient presented to the emergency department with a chief complaint of right lower quadrant abdominal pain radiating into his right groin accompanied by significant nausea. He was seen and fully evaluated in the emergency department. Acute abdominal x-ray series was completed concerning for ileus versus obstruction. CBC, BMP, coags, liver profile, and lipase showing no significant abnormalities. EKG completed revealing sinus bradycardia at 48 bpm with no noted T-wave or ST abnormalities, no previous EKGs available for comparison. Patient denied having any episodes of vomiting and reported normal bowel function with last bowel movement prior to coming to the hospital being the morning of 02/09/21. Patient does report coughing on 02/09/21 and feeling a "pop" in his right lower quadrant but denies having any pain or nausea until the morning of 02/10/21. Patient was admitted under our services and Gen. surgery and urology following. A CT abdomen and pelvis revealing severe bladder wall thickening, hypertrophic, or cystitis with thickening along the right fundus unable to rule out neoplasm; Enlarged prostate; Mild circumferential wall thickening to his distal esophagus possibly representing small hiatal hernia or esophagitis; Bilateral renal cysts findings could represent some chronic inflammation or ascending urinary tract infection; and Moderate sized right inguinal hernia containing fat and vessels measuring 6.5 cm long some stranding could possibly represent mild inflammation. In addition to right groin pain, patient's also reported that prior to coming to the hospital patient did go to his primary care doctor for experiencing urethral burning and was diagnosed with a UTI. A urinalysis was repeated during this hospitalization and was subsequently positive for leukocytes and 133 WBCs. Patient started on IV antibiotic, Rocephin and urine culture was ordered. General surgery evaluated patient ruling out bowel obstruction and recommending inguinal hernia repair over the next 1-2 weeks once antibiotic course is completed for treatment of his UTI. Urology also evaluated patient and recommending patient follow-up outpatient with Dr. Heard in 1-2 weeks. Patient being discharged home on Keflex 500 mg 3 times daily totaling a 5 day course of antibiotic therapy. Patient instructed to take these antibiotics as prescribed and complete entire course to ensure resolution of infection prior to undergoing surgical hernia repair and cystoscopy. Physical exam: Patient seen and fully evaluated at the bedside. He reports continued pain/discomfort to right groin that he describes today as being sharp with movement or upon palpation, but denies being painful at rest. Reports having normal bowel movements with last bowel movement being 02/11/21 He continues to deny having any other complaints at this time including headache, diaphoresis, chills, lightheadedness, dizziness, chest pain, palpitations, shortness of breath, dyspnea with exertion, nausea, or vomiting. Vital signs reviewed and stable. General: Nontoxic, no distress and appears stated age. Derm: Skin warm and dry, normal coloration for ethnicity. Head: Atraumatic, normocephalic and symmetric. Eyes: EOMs intact, no lid lag, and anicteric sclera Mouth: no lip lesions, mucus membranes moist Cardiovascular: regular rate and rhythm with normal S1S2, soft murmur present, positive posterior tibial pulses bilaterally, and cap refill < 2 seconds. Lungs: Respirations even, regular, and unlabored on room air. Lungs CTA bilaterally, no rhonchi, no rales, no wheezing, and no accessory muscle usage. Abdominal: soft, slight tenderness to right lower quadrant and groin upon light palpation, no guarding, no appreciable organomegaly Ext: ROM intact. No gross muscle atrophy, no edema, no contractures Neuro: Speech clear, face symmetrical and CN II-XII grossly intact with no noted focal neuro deficits Psych: Alert and oriented to person, place, time, and situation. Appropriate and pleasant affect. A total of 45 minutes of time were spent preparing this complex discharge summary. Patient Condition at Discharge: Stable Plan - Discharge Summary Discharge Rx Participant: Yes New Discharge Prescriptions: New Cephalexin [Keflex] 500 mg PO Q8HR 3 Days #9 cap Continue Atorvastatin [Lipitor] 20 mg PO DAILY Memantine [Namenda] 10 mg PO BID Polyethylene Glycol 3350 [Miralax] 17 gm PO DAILY PRN PRN Reason: Constipation HYDROcodone/APAP 5-325MG [[place] 5-325] 1 tab PO AC-TID Sertraline [Zoloft] 50 mg PO BID-W/MEALS Primidone [Mysoline] 50 mg PO HS Enalapril [Vasotec] 5 mg PO DAILY Ipratropium-Albuterol Nebulize [Duoneb 0.5 mg-3 mg/3 ml Soln] 3 ml INHALATION RT-TID PRN PRN Reason: Shortness Of Breath Discharge Medication List Atorvastatin [Lipitor] 20 mg PO DAILY 02/17/18 [History] Enalapril [Vasotec] 5 mg PO DAILY 02/10/21 [History] HYDROcodone/APAP 5-325MG [[place] 5-325] 1 tab PO AC-TID 02/10/21 [History] Ipratropium-Albuterol Nebulize [Duoneb 0.5 mg-3 mg/3 ml Soln] 3 ml INHALATION RT-TID PRN 02/10/21 [History] Memantine [Namenda] 10 mg PO BID 02/10/21 [History] Polyethylene Glycol 3350 [Miralax] 17 gm PO DAILY PRN 02/10/21 [History] Primidone [Mysoline] 50 mg PO HS 02/10/21 [History] Sertraline [Zoloft] 50 mg PO BID-W/MEALS 02/10/21 [History] Cephalexin [Keflex] 500 mg PO Q8HR 3 Days #9 cap 02/12/21 [Rx] Follow up Appointment(s)/Referral(s): Huey Hadley MD [Medical Doctor] - 02/27/21 10:00 am Chapincito Lee MD [Primary Care Provider] - 1-2 days (please make follow up appointment.) Jeffrey Heard MD [STAFF PHYSICIAN] - 1 Week (The office will call you with an appointment time and date.) Patient Instructions/Handouts: Cephalexin (By mouth), Urinary Tract Infection in Men (DC) Activity/Diet/Wound Care/Special Instructions: Activity: As tolerated Diet: Continue heart healthy diet Special Instructions: You are being discharged home on an oral antibiotic that you should begin taking tomorrow morning as you already had your dose for today through the IV. Please take this antibiotic as directed without missing any doses and complete the entire course. Once completion of this antibiotic, you will need to follow up outpatient with general surgery, Dr. Hadley, as discussed for recommended inguinal hernia repair with mesh. It is also important for you to follow up with your urologist, Dr. Heard in 1-2 weeks to arrange for recommended cystoscopy to be completed as they discussed with you this morning. Thank you for allowing us to participate in your care, It was truly a pleasure having you for a patient!! Discharge Disposition: HOME SELF-CARE <Kayla Foster - Last Filed: 02/12/21 20:17> Providers Date of admission: 02/10/21 14:03 Attending physician: Jacklyn Peralta Consults: 02/10/21 17:27 Consult Physician Routine Consulting Provider: Huey Hadley Consult Reason/Comments: ileus vs. Obstruction Do you want consulting provider notified?: Yes 02/11/21 15:09 Consult Physician Routine Consulting Provider: Jermaine Enriquez Consult Reason/Comments: CT revealing severe bladder wall thickening concerning for neoplasm Do you want consulting provider notified?: Yes Primary care physician: Chapincito Lee MD Hospital Course: Calvin Swain NP rendered care for this patient independently, reviewed the findings and plan as documented in the note above. I did not physically speak with or examine the patient on this date. Her extensive. Reviewed including lab work, imaging studies, and consultations. Patient only close follow-up with urology regarding his clean intermittent cath. He will also complete a course of antibiotics for urinary tract infection. After he completes antibiotics he'll follow-up with Dr. Turner for definitive hernia repair.
--- NOTE | 2021-02-12 12:41 | P.PN ---
Subjective Progress Note Date: 02/12/21 Principal diagnosis: Right inguinal hernia Patient doing better today. Nausea and abdominal discomforts have improved. Minimal discomfort at the hernia site. No fevers. Urine analysis consistent with possible UTI. Objective - Vital Signs Vital signs: Vital Signs Temp 98.2 F 02/12/21 05:00 Pulse 55 L 02/12/21 05:00 Resp 16 02/12/21 05:00 BP 144/67 02/12/21 05:00 Pulse Ox 95 02/12/21 05:00 Intake & Output 02/11/21 02/12/21 02/12/21 18:59 06:59 18:59 Intake Total 1320 Output Total 58 Balance 1262 Intake: Intake, IV Titration 1320 Amount Sodium Chloride 0.9% 1, 1320 000 ml @ 110 mls/hr IV . Q9H6M [facility] Rx#:[id number] Output: Post Void Residual 58 Other: Voiding Method Self-Catheterization Self-Catheterization Self-Catheterization # Voids 3 2 - Exam Abdomen: Soft, nondistended, nontender, reducible right inguinal hernia - Labs CBC & Chem 7: 02/11/21 05:44 02/11/21 05:44 Labs: Abnormal Lab Results - Last 24 Hours (Table) 02/11/21 Range/Units 12:45 Urine Protein Trace H (Negative) Urine Blood Small H (Negative) Ur Leukocyte Esterase Large H (Negative) Urine RBC 8 H (0-5) /hpf Urine WBC 133 H (0-5) /hpf Urine WBC Clumps Few H (None) /hpf Urine Bacteria Occasional H (None) /hpf Urine Mucus Rare H (None) /hpf Assessment and Plan (1) Right inguinal hernia Narrative/Plan: Patient doing better. Continue antibiotics for UTI. May discharge. We'll plan outpatient elective open right inguinal hernia repair with mesh. Current Visit: Yes Status: Acute Code(s): K40.90 - UNIL INGUINAL HERNIA, W/O OBST OR GANGR, NOT SPCF RECUR SNOMED Code(s): 263807217
--- NOTE | 2021-02-12 14:10 | P.GSCN ---
History of Present Illness Consult date: 02/12/21 Reason for Consult: urinary retention History of present illness: 85-year-old male admitted to the hospital with reducible inguinal hernia, small bowel dilation. He underwent a CT abdomen and pelvis on presentation which showed a significantly thickened bladder, more pronounced on the right side. Of note he has history of chronic urinary retention, does CIC 5-6 times a day. He follows up with Dr. Heard for management of his bladder. Of note he had a cystoscopy done 2017 that showed no evidence of malignancy. denies any gross hematuria, or dysuria Review of Systems - Constitutional Denies fever, Denies weight loss - Cardiovascular Denies chest pain, Denies shortness of breath - Gastrointestinal Reports abdominal pain - Genitourinary Denies dysuria, Denies hematuria - Integumentary Denies rash, Denies unusual bruising - Neurological Denies headaches, Denies syncope Past Medical History Past Medical History: Hypertension Additional Past Medical History / Comment(s): HYPOGLYCEMIA, SELF CATHETERIZATION, History of Any Multi-Drug Resistant Organisms: None Reported Past Surgical History: Prostate Surgery Past Anesthesia/Blood Transfusion Reactions: No Reported Reaction Past Psychological History: Anxiety Past Alcohol Use History: Occasional Past Drug Use History: None Reported - Past Family History Mother Family Medical History: No Reported History Medications and Allergies Home Medications Medication Instructions Recorded Confirmed Type Atorvastatin [Lipitor] 20 mg PO DAILY 02/17/18 02/10/21 History Enalapril [Vasotec] 5 mg PO DAILY 02/10/21 02/10/21 History HYDROcodone/APAP 5-325MG [[place] 1 tab PO AC-TID 02/10/21 02/10/21 History 5-325] Ipratropium-Albuterol Nebulize 3 ml INHALATION RT-TID PRN 02/10/21 02/10/21 History [Duoneb 0.5 mg-3 mg/3 ml Soln] Memantine [Namenda] 10 mg PO BID 02/10/21 02/10/21 History Polyethylene Glycol 3350 [Miralax] 17 gm PO DAILY PRN 02/10/21 02/10/21 History Primidone [Mysoline] 50 mg PO HS 02/10/21 02/10/21 History Sertraline [Zoloft] 50 mg PO BID-W/MEALS 02/10/21 02/10/21 History Cephalexin [Keflex] 500 mg PO Q8HR 3 Days #9 cap 02/12/21 Rx Allergies Allergy/AdvReac Type Severity Reaction Status Date / Time No Known Allergies Allergy Verified 02/10/21 14:01 Surgical - Exam Vital Signs Temp Pulse Resp BP Pulse Ox 97.6 F 49 L 16 135/65 94 L 02/10/21 12:33 02/10/21 12:33 02/10/21 12:33 02/10/21 12:33 02/10/21 12:33 - General well developed, well nourished, no distress, no pain - Eyes PERRL, normal ocular movement - ENT normal nares, normal mucosa - Respiratory normal expansion, normal respiratory effort - Abdomen Abdomen: soft, non tender - Psychiatric oriented to time, oriented to person, oriented to place Results - Labs 02/11/21 05:44 02/11/21 05:44 Assessment and Plan Assessment: 85-year-old male with history of chronic urinary retention, bladder being managed by CIC. CT on presentation showed a significantly thickened bladder, worse on the right side. Of note he had a cystoscopy done in 2018 which showed no bladder malignancy Plan: -continuous CIC -okay to proceed with his hernia repair from urology standpoint -Can follow-up as an outpatient with Dr. Heard for possible cystoscopy given the thickened bladder wall
--- NOTE | 2021-02-14 08:41 | CDI ---
Documentation Clarification Form Date: 02/14/2021 07:55:09 AM From: Carmenza Garner RN, CCDS Admit Date: 02/10/2021 02:03:00 PM Patient Name: Darin Reynolds Visit Number: [id number] Discharge Date: 02/12/2021 01:55:00 PM ATTENTION: The Clinical Documentation Specialists (CDI) and [facility] Coding Staff appreciate your assistance in clarifying documentation. Please respond to the clarification below the line at the bottom and electronically sign. The CDI & [facility] Coding staff will review the response and follow-up if needed. Please note: Queries are made part of the Legal Health Record. If you have any questions, please contact the author of this message via ITS. Dr. Kayla Foster UTI is documented discharge summary as acute cystitis and patient has urinary retention and need daily self-catheterization. Additional clarification regarding the etiology of the UTI is requested. History/Risk Factors: Hypertension, BPH, Urinary retention, self-catheterization Clinical Indicators: 85-year-old male present to ED on 02/10 with complaint of right lower quadrant abdominal pain radiating into his right groin. He has history of urinary retention needing daily self-catheterization. He was treated for UTI prior to admission. 02/11 Urinalysis: Ur Leukocyte Esterase Large, Urine WBC 133 02/10 Lab results: WBC 6.9 Treatment: Rocephin 1 GM IVPB Q 24 (02/11) Keflex 500 MG PO TID X5 Days (on discharge) Please clarify the etiology of the UTI, if known: [ ] UTI, Acute Cystitis related to Self-Catheterization, POA [ ] UTI not related to self-catheterization [ ] Other condition, please specify [ ] Unable to determine (Template Last Revised: August 2020) Acute Cystitis related to Self-Catheterization, POA MTDD
--- NOTE | 2021-02-14 09:16 | CDI ---
Documentation Clarification Form Date: 02/14/2021 08:43:55 AM From: Carmenza Garner RN, CCDS Admit Date: 02/10/2021 02:03:00 PM Patient Name: Darin Reynolds Visit Number: [id number] Discharge Date: 02/12/2021 01:55:00 PM ATTENTION: The Clinical Documentation Specialists (CDI) and [facility] Coding Staff appreciate your assistance in clarifying documentation. Please respond to the clarification below the line at the bottom and electronically sign. The CDI & [facility] Coding staff will review the response and follow-up if needed. Please note: Queries are made part of the Legal Health Record. If you have any questions, please contact the author of this message via ITS. Dr. Kayla Foster Ileus vs obstruction is documented in the H&P on 02/10 and progress note on 02/11 but not in discharge summary on 02/10. The obstruction was ruled out. Clarification is requested for the ileus. History/Risk Factors: Hypertension, BPH, Urinary retention, self-catheterization Clinical Indicators: 85-year-old male present to ED on 02/10 with complaint nausea and abdominal discomfort of right lower quadrant radiating into his right groin. 12/12 labs: WBC 5.8 UA: LG leukocyte esterase 02/10 Vital signs: 135/6549 16 97.6 94 % 2/L NC 02/10 Abdomen X-ray: Correlate for ileus or obstruction 02/11 Abdomen/Pelvis CT: No dilated small bowel, free fluid, or free air No mesenteric or retroperitoneal lymphadenopathy. Mild circumferential wall thickening distal esophagus could represent a small hiatal hernia or esophagitis. 02/11 Surgery consult: CAT scan showed no evidence of bowel obstruction. Mold inflammation at hernia site without evidence of strangulation or incarceration, reducible right inguinal hernia Treatment: NPO until cleared by general surgery. General surgery consult .9NS @110 MLS/HR 02/10-02/11 Zofran 4 MG IV Q8 HRS, PRN Please clarify if the ileus is: [ ] Ileus confirmed, resolved [ ] Ileus ruled out [ ] Other condition, please specify [ ] Unable to determine (Template Last Revised: August 2020) Ileus ruled out MTDD
== END 2021-02-12 13:55 | disposition home or self-care (01) | DRG 699 ==
LOC: EC 12:21 → 5NMEDONC 14:03
PROVIDERS: ADMIT Internal Medicine; ATTEND Internal Medicine
DX: T83.518A Infection and inflammatory reaction due to other urinary catheter, initial encounter (principal); N30.00 Acute cystitis without hematuria; E78.5 Hyperlipidemia, unspecified; F03.90 Unspecified dementia, unspecified severity, without behavioral disturbance, psychotic disturbance, mood disturbance, and anxiety; F41.9 Anxiety disorder, unspecified; I10 Essential (primary) hypertension; K40.90 Unilateral inguinal hernia, without obstruction or gangrene, not specified as recurrent; N40.1 Benign prostatic hyperplasia with lower urinary tract symptoms; Z79.899 Other long term (current) drug therapy; R33.8 Other retention of urine
CPT/HCPCS: 36415; 74022; 74177; 80053; 81001; 83605; 83690; 83735; 85025; 85610; 85730; 93005; 99285

== ENCOUNTER 2021-02-17 08:37 | Day surgery (SDC) | payer MEDICARE, OTHER ==
[2021-02-13 14:58] VITALS: BMI 25.0
[~2021-02-17 08:37] MED LIST changes: +ACETAMINOPHEN TAB 500 MG TAB PO PRN; -DEXAMETHASONE SOD PHOSPHATE 10 MG/ML 1 ML VIAL IV ONE; +HEPARIN SODIUM,PORCINE/PF 5,000 UNIT/0.5 ML SYRINGE SQ PRN; +LIDOCAINE 1% (10MG/ML) FOR IV START INTRADERMA PRN; -LIDOCAINE 1% 20 ML VIAL (10MG/ML) FOR IV START INTRADERMA PRN; -MIDAZOLAM 2 MG/2 ML VIAL IV PRN; -Pre Op ABX Message 1 EACH MISC MISCELLANE ONE; -fentaNYL (PF) 50 MCG/ML 2 ML AMP IV PRN
[2021-02-17 09:35] LABS: Glucose,Whole Blood 89 mg/dL (75-99)
--- NOTE | 2021-02-17 10:05 | P.GSHP ---
History of Present Illness H&P Date: 02/17/21 Chief Complaint: Right inguinal hernia 85-year-old male hospitalized 1.5 weeks ago for right groin pain and urinary infection. Patient found to have a reducible right inguinal hernia. Has been very painful to him over the last several months. Thinks it's been present for about a year. It has limited his activities. Increased pain with lifting and straining. Taking [place] for the pain lately. Patient just finished his oral antibiotic prescription for UTI. Past Medical History Past Medical History: Osteoarthritis (OA), Pneumonia Additional Past Medical History / Comment(s): HYPOGLYCEMIA, SELF CATHET ERIZATION, leaky heart valve, COVID Apr 2020, constipation, frequent UTI's(currently on Rx for), History of Any Multi-Drug Resistant Organisms: None Reported Past Surgical History: Ear Surgery, Hernia Repair, Tonsillectomy Additional Past Surgical History / Comment(s): shi cataracts, mastoid surgery age 9 Past Anesthesia/Blood Transfusion Reactions: No Reported Reaction Smoking Status: Never smoker - Past Family History Mother Family Medical History: Cancer Father Family Medical History: Cancer Medications and Allergies Home Medications Medication Instructions Recorded Confirmed Type Atorvastatin [Lipitor] 20 mg PO DAILY 02/17/18 02/17/21 History Enalapril [Vasotec] 5 mg PO DAILY 02/10/21 02/17/21 History HYDROcodone/APAP 5-325MG [[place] 1 tab PO AC-TID PRN 02/10/21 02/17/21 History 5-325] Ipratropium-Albuterol Nebulize 3 ml INHALATION TID PRN 02/10/21 02/17/21 History [Duoneb 0.5 mg-3 mg/3 ml Soln] Memantine [Namenda] 10 mg PO BID 02/10/21 02/17/21 History Polyethylene Glycol 3350 [Miralax] 17 gm PO DAILY PRN 02/10/21 02/17/21 History Primidone [Mysoline] 50 mg PO HS 02/10/21 02/17/21 History Sertraline [Zoloft] 50 mg PO BID-W/MEALS 02/10/21 02/17/21 History Cephalexin [Keflex] 500 mg PO Q8HR 3 Days #9 cap 02/12/21 02/17/21 Rx Acetaminophen [Tylenol Extra 500 mg PO DIRECTED PRN 02/13/21 02/17/21 History Strength] Cholecalciferol (Vitamin D3) 125 mcg PO DAILY 02/13/21 02/17/21 History [Vitamin D3 (125 MCG = 5,000 IU)] Allergies Allergy/AdvReac Type Severity Reaction Status Date / Time No Known Allergies Allergy Verified 02/17/21 09:04 Surgical - Exam Vital Signs Temp Pulse Resp BP Pulse Ox 97.5 F L 50 L 16 135/72 97 02/17/21 09:02 02/17/21 09:02 02/17/21 09:02 02/17/21 09:02 02/17/21 09:02 Physical exam: General: Well-developed, well-nourished HEENT: Normocephalic, sclerae nonicteric Abdomen: Nontender, nondistended, reducible right inguinal hernia Extremities: No edema Neuro: Alert and oriented Assessment and Plan (1) Right inguinal hernia Narrative/Plan: Will proceed with repair reducible right inguinal hernia with mesh. Risks of bleeding, infection, recurrence, bladder and bowel injury, numbness, nerve injury were discussed with the patient. The patient understands and wishes to proceed. Current Visit: No Status: Acute Code(s): K40.90 - UNIL INGUINAL HERNIA, W/O OBST OR GANGR, NOT SPCF RECUR SNOMED Code(s): 767164091
[2021-02-17] MEDS ORDERED: fentaNYL (PF) 50 MCG/ML 2 ML AMP ONE (10:21)
[2021-02-17] MEDS ORDERED: LIDOCAINE 1% INJ 10MG/ML (20 ML MDV) ONE (10:21)
[2021-02-17] MEDS ORDERED: PROPOFOL 10 MG/ML 20 ML VIAL IV ONE (10:21)
[2021-02-17] MEDS ORDERED: ePHEDrine SULFATE/0.9% NACL/PF 50 MG/5 ML SYRINGE IV ONE (10:21)
[2021-02-17] MEDS ORDERED: GLYCOPYRROLATE 0.2 MG/ML 2 ML VIAL ONE (10:21)
[2021-02-17] MEDS ORDERED: BUPIVACAINE (PF) 0.25% 30 ML VIAL SQ ONE ×2 (10:47)
--- NOTE | 2021-02-17 11:37 | P.OP ---
Date of Procedure: 02/17/21 Procedure(s) Performed: PREOPERATIVE DIAGNOSIS: Reducible right inguinal hernia POSTOPERATIVE DIAGNOSIS: Reducible indirect right inguinal hernia PROCEDURE: Repair indirect right inguinal hernia with mesh SURGEON: Dr. Hadley ANESTHESIA: General OPERATIVE PROCEDURE DETAILS: Patient was placed in the operating table in the supine position and placed under general anesthesia. An oblique incision was made in the right groin. Dissection down through the subcutaneous tissues took place using electrocautery. The external oblique fascia was incised using a scalpel. This opening was lengthened using the Metzenbaum scissors. The spermatic cord was encircled with a Kati drain. The structures were i dentified and preserved. Careful dissection revealed an indirect hernia sac. This was carefully dissected back to the internal inguinal ring where it was ligated using 2 separate 2-0 silk stick tie sutures. A 3" x 6" Prolene mesh was cut to fit on the exposed fascia. This was sutured to the pubic tubercle the folding edge of the inguinal ligament and the conjoined tendon. A slit was created in the mesh and the mesh was wrapped around the spermatic cord and sutured back to itself. The external oblique was then reapproximated using a running 2-0 Vicryl suture. The subcutaneous tissues were reapproximated using a 3-0 Vicryl sutures. The skin was closed using 4-0 Monocryl sutures. Skin glue and sterile dressings were then applied. TYPE OF MESH USED: 3" x 6" flat Prolene mesh LOCATION OF MESH: [place] FIXATION: 2-0 Nurolon sutures DISPOSITION: Stable to recovery room
[2021-02-17 11:51] VITALS: TEMP 97.4
[2021-02-17] MEDS ORDERED: ONDANSETRON 4 MG/2 ML VIAL ONE (12:14)
[2021-02-17] MEDS ORDERED: ONDANSETRON 4 MG/2 ML VIAL IVP ONE (12:17)
[2021-02-17] MEDS: HYDROmorphone 0.5 MG/0.5 ML SYRINGE IVP PRN ×2 (12:24→12:48)
[2021-02-17] MEDS ORDERED: LACTATED RINGERS 1,000 ML IV ONE (12:25)
[2021-02-17 13:14] VITALS: RESP 16
[2021-02-17 14:14] VITALS: BP 127/78; PULSE 57
[2021-02-17] MEDS ORDERED: ACETAMINOPHEN TAB 325 MG TAB PO SCH (15:00)
[2021-02-17] MEDS ORDERED: IBUPROFEN 600 MG TAB PO SCH (18:00)
== END 2021-02-17 14:23 | disposition home or self-care (01) ==
LOC: OR 08:37
PROVIDERS: ATTEND Surgery
DX: K40.90 Unilateral inguinal hernia, without obstruction or gangrene, not specified as recurrent (principal); M19.90 Unspecified osteoarthritis, unspecified site; Z87.440 Personal history of urinary (tract) infections; Z80.9 Family history of malignant neoplasm, unspecified
CPT/HCPCS: 49505; 88302; C1781; J0690; J2405; J2001; J3010; J2704; J1170; J1644

== ENCOUNTER 2022-03-01 12:19 | Observation (INO) | payer MEDICARE, OTHER ==
[2022-03-01] MEDS ORDERED: SODIUM CHLORIDE 0.9% 500 ML 500 ML IV STA (12:22)
[2022-03-01] MEDS ORDERED: ONDANSETRON 4 MG/2 ML VIAL IVP STA (12:22)
[2022-03-01] MEDS ORDERED: SODIUM CHLORIDE 0.9% 1,000 ML IV STA (12:22)
[2022-03-01 12:37] LABS: Basophils # (A) 0.1 k/uL (0-0.2); Basophils % (A) 1 %; Eosinophils # (A) 0.2 k/uL (0-0.7); Eosinophils % (A) 3 %; HCT 35.9 % (39.0-53.0); HGB 11.4 gm/dL (13.0-17.5); Lymphocytes % (A) 33 %; MCH 29.8 pg (25.0-35.0); MCHC 31.9 g/dL (31.0-37.0); MCV 93.7 fL (80.0-100.0); Mean Platelet Volume 10.3; Monocytes # (A) 0.4 k/uL (0-1.0); Monocytes % (A) 7 %; Neutrophils # (A) 3.4 k/uL (1.3-7.7); Neutrophils % (A) 55 %; Platelet Count 165 k/uL (150-450); RBC 3.83 m/uL (4.30-5.90); RDW 13.3 % (11.5-15.5); WBC 6.2 k/uL (3.8-10.6)
--- NOTE | 2022-03-01 12:37 | ED ---
General Adult HPI - General Chief complaint: Syncope Stated complaint: Syncope Time Seen by Provider: 03/01/22 12:19 Source: patient, EMS, RN notes reviewed Mode of arrival: EMS - History of Present Illness Initial comments: 76-year-old male with a history of self-catheterization who is currently on antibiotics for UTI also history of leaky heart valve who states he was in chur ch today when he felt a pain go up his neck and was had he felt lightheaded dizzy and diaphoretic he almost passed out but he was helped down by another bystanders. No trauma reported. Daily chest pains or palpitations he found by paramedics have a heart rate about 40 bpm adequate blood glucose. He apparently is a runner but denies having a slow heart rate. - Related Data Home Medications Medication Instructions Recorded Confirmed Atorvastatin [Lipitor] 20 mg PO DAILY 02/17/18 03/01/22 Enalapril [Vasotec] 5 mg PO DAILY 02/10/21 03/01/22 Memantine [Namenda] 10 mg PO BID 02/10/21 03/01/22 Donepezil [Aricept] 20 mg PO DAILY 03/01/22 03/01/22 QUEtiapine [SEROquel] 25 mg PO BID 03/01/22 03/01/22 Sertraline [Zoloft] 100 mg PO HS 03/01/22 03/01/22 Allergies Allergy/AdvReac Type Severity Reaction Status Date / Time No Known Allergies Allergy Verified 02/17/21 09:04 Review of Systems ROS Statement: Those systems with pertinent positive or pertinent negative responses have been documented in the HPI. ROS Other: All systems not noted in ROS Statement are negative. Past Medical History Past Medical History: Osteoarthritis (OA), Pneumonia Additional Past Medical History / Comment(s): HYPOGLYCEMIA, SELF CATHETERIZATION, leaky heart valve, COVID Apr 2020, constipation, frequent UTI's(currently on Rx for), History of Any Multi-Drug Resistant Organisms: None Reported Past Surgical History: Ear Surgery, Hernia Repair, Tonsillectomy Additional Past Surgical History / Comment(s): shi cataracts, mastoid surgery age 9 Past Anesthesia/Blood Transfusion Reactions: No Reported Reaction Past Psychological History: Anxiety Smoking Status: Never smoker - Past Family History Mother Family Medical History: Cancer Father Family Medical History: Cancer General Exam - General Exam Comments Initial Comments: This is a well-developed well-nourished awake alert oriented 4 male General appearance: alert, other (Patient states he feels nauseated) Head exam: Present: atraumatic, normocephalic, normal inspection Eye exam: Present: normal appearance, PERRL, EOMI. Absent: scleral icterus, conjunctival injection, periorbital swelling ENT exam: Present: normal exam, mucous membranes moist Neck exam: Present: normal inspection, full ROM, other (her to be her bruits). Absent: tenderness, meningismus, lymphadenopathy Respiratory exam: Present: normal lung sounds bilaterally. Absent: respiratory distress, wheezes, rales, rhonchi, stridor Cardiovascular Exam: Present: bradycardia, normal heart sounds. Absent: systolic murmur, diastolic murmur, rubs, gallop, clicks GI/Abdominal exam: Present: soft. Absent: distended, tenderness, guarding, rebound, rigid, bruit, pulsatile mass Rectal exam: Present: deferred Extremities exam: Present: normal inspection, full ROM, normal capillary refill. Absent: tenderness, pedal edema, joint swelling, calf tenderness Back exam: Present: normal inspection Neurological exam: Present: alert, oriented X3, CN II-XII intact Psychiatric exam: Present: normal affect, normal mood Skin exam: Present: warm, intact, normal color, diaphoretic. Absent: rash Course Vital Signs 03/01/22 03/01/22 03/01/22 12:20 14:29 15:34 Temperature 98.1 F Pulse Rate 44 L 47 L 48 L Respiratory 18 18 18 Rate Blood Pressure 118/66 119/70 O2 Sat by Pulse 99 96 98 Oximetry 03/01/22 17:59 Temperature Pulse Rate 49 L Respiratory 18 Rate Blood Pressure 115/70 O2 Sat by Pulse 97 Oximetry EKG Findings - EKG Results: EKG: interpreted by ERMD, sinus rhythm (Sinus bradycardia rate 43 CO interval 198 QRS duration 110 QT/QTC 507/452 borderline left exodeviation) Medical Decision Making - Medical Decision Making I did discuss findings with the patient and multiple family members or present patient be admitted case discussed with Dr. Diaz cardiology will be consulted. - Lab Data Result diagrams: 03/01/22 12:30 03/01/22 12:30 Lab Results 03/01/22 03/01/22 03/01/22 Range/Units 12:30 12:30 12:30 WBC 6.2 (3.8-10.6) k/uL RBC 3.83 L (4.30-5.90) m/uL Hgb 11.4 L (13.0-17.5) gm/dL Hct 35.9 L (39.0-53.0) % MCV 93.7 (80.0-100.0) fL MCH 29.8 (25.0-35.0) pg MCHC 31.9 (31.0-37.0) g/dL RDW 13.3 (11.5-15.5) % Plt Count 165 (150-450) k/uL MPV 10.3 Neutrophils % 55 % Lymphocytes % 33 % Monocytes % 7 % Eosinophils % 3 % Basophils % 1 % Neutrophils # 3.4 (1.3-7.7) k/uL Lymphocytes # 2.0 (1.0-4.8) k/uL Monocytes # 0.4 (0-1.0) k/uL Eosinophils # 0.2 (0-0.7) k/uL Basophils # 0.1 (0-0.2) k/uL PT 11.0 (9.0-12.0) sec INR 1.0 (<1.2) APTT 22.5 (22.0-30.0) sec D-Dimer 0.55 (<0.60) mg/L FEU Sodium 137 (137-145) mmol/L Potassium 4.1 (3.5-5.1) mmol/L Chloride 106 (98-107) mmol/L Carbon Dioxide 22 (22-30) mmol/L Anion Gap 9 mmol/L BUN 23 H (9-20) mg/dL Creatinine 1.49 H (0.66-1.25) mg/dL Est GFR (CKD-EPI)AfAm 48 (>60 ml/min/1.73 sqM) Est GFR (CKD-EPI)NonAf 42 (>60 ml/min/1.73 sqM) Glucose 98 (74-99) mg/dL Calcium 8.6 (8.4-10.2) mg/dL Magnesium 1.8 (1.6-2.3) mg/dL Total Bilirubin 0.3 (0.2-1.3) mg/dL AST 31 (17-59) U/L ALT 16 (4-49) U/L Alkaline Phosphatase 48 (38-126) U/L Troponin I (0.000-0.034) ng/mL Total Protein 5.5 L (6.3-8.2) g/dL Albumin 3.3 L (3.5-5.0) g/dL Urine Color Urine Appearance (Clear) Urine pH (5.0-8.0) Ur Specific [place] (1.001-1.035) Urine Protein (Negative) Urine Glucose (UA) (Negative) Urine Ketones (Negative) Urine Blood (Negative) Urine Nitrite (Negative) Urine Bilirubin (Negative) Urine Urobilinogen (<2.0) mg/dL Ur Leukocyte Esterase (Negative) Urine RBC (0-5) /hpf Urine WBC (0-5) /hpf Urine WBC Clumps (None) /hpf Ur Squamous Epith Cells (0-4) /hpf Urine Bacteria (None) /hpf Hyaline Casts (0-2) /lpf Urine Mucus (None) /hpf Urine Yeast (Budding) (None) /hpf 03/01/22 03/01/22 Range/Units 12:30 15:13 WBC (3.8-10.6) k/uL RBC (4.30-5.90) m/uL Hgb (13.0-17.5) gm/dL Hct (39.0-53.0) % MCV (80.0-100.0) fL MCH (25.0-35.0) pg MCHC (31.0-37.0) g/dL RDW (11.5-15.5) % Plt Count (150-450) k/uL MPV Neutrophils % % Lymphocytes % % Monocytes % % Eosinophils % % Basophils % % Neutrophils # (1.3-7.7) k/uL Lymphocytes # (1.0-4.8) k/uL Monocytes # (0-1.0) k/uL Eosinophils # (0-0.7) k/uL Basophils # (0-0.2) k/uL PT (9.0-12.0) sec INR (<1.2) APTT (22.0-30.0) sec D-Dimer (<0.60) mg/L FEU Sodium (137-145) mmol/L Potassium (3.5-5.1) mmol/L Chloride (98-107) mmol/L Carbon Dioxide (22-30) mmol/L Anion Gap mmol/L BUN (9-20) mg/dL Creatinine (0.66-1.25) mg/dL Est GFR (CKD-EPI)AfAm (>60 ml/min/1.73 sqM) Est GFR (CKD-EPI)NonAf (>60 ml/min/1.73 sqM) Glucose (74-99) mg/dL Calcium (8.4-10.2) mg/dL Magnesium (1.6-2.3) mg/dL Total Bilirubin (0.2-1.3) mg/dL AST (17-59) U/L ALT (4-49) U/L Alkaline Phosphatase (38-126) U/L Troponin I <0.012 (0.000-0.034) ng/mL Total Protein (6.3-8.2) g/dL Albumin (3.5-5.0) g/dL Urine Color Yellow Urine Appearance Cloudy (Clear) Urine pH 6.5 (5.0-8.0) Ur Specific [place] 1.014 (1.001-1.035) Urine Protein Trace H (Negative) Urine Glucose (UA) Negative (Negative) Urine Ketones Negative (Negative) Urine Blood Trace H (Negative) Urine Nitrite Negative (Negative) Urine Bilirubin Negative (Negative) Urine Urobilinogen <2.0 (<2.0) mg/dL Ur Leukocyte Esterase Large H (Negative) Urine RBC 5 (0-5) /hpf Urine WBC 136 H (0-5) /hpf Urine WBC Clumps Many H (None) /hpf Ur Squamous Epith Cells 1 (0-4) /hpf Urine Bacteria Occasional H (None) /hpf Hyaline Casts 3 H (0-2) /lpf Urine Mucus Rare H (None) /hpf Urine Yeast (Budding) Few H (None) /hpf - Radiology Data Radiology results: report reviewed (Imaging reviewed as well as report no acute findings), image reviewed Critical Care Time Critical Care Time: Yes Total Critical Care Time: 31 Critical Care Time: This time includes initial presentation with history physical labs x-rays discussed with paramedics on arrival multiple reevaluation the patient discussed with the patient and family regarding findings discussed with the admitting physician admission orders and documentation of the above Disposition Clinical Impression: Syncope and collapse, Bradycardia, Acute kidney injury, Dehydration Disposition: ADMITTED IP TO THIS HOSP Condition: Stable Referrals: Chapincito Lee MD [Primary Care Provider] - 1-2 days Decision Date: 03/01/22 Decision Time: 18:00
[2022-03-01 12:51] LABS: Albumin 3.3 g/dL (3.5-5.0); Calcium 8.6 mg/dL (8.4-10.2); Magnesium 1.8 mg/dL (1.6-2.3); Potassium 4.1 mmol/L (3.5-5.1); Total Bilirubin 0.3 mg/dL (0.2-1.3); Total Protein 5.5 g/dL (6.3-8.2)
[2022-03-01 13:00] LABS: Partial Thromboplastin Time 22.5 sec (22.0-30.0)
--- NOTE | 2022-03-01 13:20 | CT ---
EXAMINATION TYPE: CT brain wo con CT DLP: 1084.4 mGycm, Automated exposure control for dose reduction was used. DATE OF EXAM: 03/01/2022 1:11 PM COMPARISON: None. CLINICAL INDICATION:Male, 86 years old with history of syncope TECHNIQUE: Brain: Multiple axial CT images of the brain were obtained without IV contrast. Coronal and sagittal reformats reviewed. FINDINGS: Brain: Extra-axial spaces: No abnormal extra-axial fluid collections. Ventricular system: Dilatation in proportion to cerebral atrophy. Cerebral parenchyma: No acute intraparenchymal hemorrhage or mass effect. The shin-white junction is well differentiated. Cerebral volume loss. Cerebellum: Unremarkable. Mass effect: No evidence of midline shift. Intracranial vasculature: Atherosclerotic calcifications of the intracranial vessels. Soft tissues: Normal. Calvarium/osseous structures: No depressed skull fracture. Paranasal sinuses and mastoid air cells: Mild scattered paranasal sinus disease. Visualized orbits: Bilateral aphakia IMPRESSION: No acute intracranial process.
--- NOTE | 2022-03-01 13:21 | XR ---
EXAMINATION TYPE: XR chest 2V DATE OF EXAM: 03/01/2022 1:14 PM COMPARISON: Chest radiographs from 08/12/2010 TECHNIQUE: XR chest 2V Frontal and lateral views of the chest. CLINICAL INDICATION:Male, 86 years old with history of syncope; FINDINGS: Lungs/Pleura: There is no evidence of pleural effusion, focal consolidation, or pneumothorax. Pulmonary vascularity: Unremarkable. Heart/mediastinum: Cardiomediastinal silhouette is unremarkable. Musculoskeletal: No acute osseous pathology. Bilateral shoulder arthropathy. Remote appearing right-s ided rib fractures. Multilevel degenerative changes of the visualized spine. IMPRESSION: No acute cardiopulmonary disease/process.
[2022-03-01 15:27] LABS: Appearance,Urine Cloudy (Clear); Bacteria,Urine Occasional /hpf; Bilirubin,Urine Negative (Negative); Blood,Urine Trace (Negative); Budding Yeast,Urine Few /hpf; Color,Urine Yellow; Glucose,Urine (UA) Negative (Negative); Hyaline Casts,Urine 3 /lpf (0-2); Ketones,Urine Negative (Negative); Leukocyte Esterase,Urine Large (Negative); Mucus,Urine Rare /hpf; Nitrite,Urine Negative (Negative); PH, Urine 6.5 (5.0-8.0); Protein,Urine Trace (Negative); RBC,Urine 5 /hpf (0-5); Specific Gravity,Urine 1.014 (1.001-1.035); Squamous Epithelial Cell,Urine 1 /hpf (0-4); Urobilinogen,Urine <2.0 mg/dL (<2.0); WBC,Urine 136 /hpf (0-5)
[2022-03-01] MEDS ORDERED: NALOXONE 0.4 MG/ML 1 ML VIAL IV PRN (18:44)
[2022-03-01] MEDS: SODIUM CHLORIDE 0.9% 1,000 ML IV SCH (19:01)
[2022-03-01] MEDS ORDERED: SERTRALINE 100 MG TAB PO SCH (21:00)
--- NOTE | 2022-03-01 23:07 | P.HPIM ---
History of Present Illness H&P Date: 03/01/22 Chief Complaint: syncope 86 year old male with hypertension patient comes in after having a syncopal episode while at [employer] after he stood up for prayers, he did not feel anything , and all he remembers waking up on the floor with people around him. this has never happened before, he denies feeling dizzy , lightheaded or having any heart racing before or after the episode , no associated chest pain or trouble breathing. he denies any cardiac history from before. normally he is active and able to do heavy work in his garage with no limitations. he is feeling well now, however initially upon presentation , he was hypotensive which improved with IVF hydration in the ED. he denies any recent changes in his medications, he reports that he is eating well. however , he believes he could have been dehydrated as he has been working a lot in his garage with profuse sweating. he denies any injuries to his head, denies vomiting, or loss of bowel or bladder control. bystanders did not report any seizure like activity . patient denies any abd pain , denies any GI bleeding. denies any new focal neuro deficits,. He has been doing self cath for many years now , with occasional UTI, he has recently finished a course of antibiotics for UTI. workup inthe ED showed sinus bradycardia. no acute ST changes CT brain no acute pathology CXR no acute pathology Review of Systems Pertinent positives as noted in HPI. All other systems were reviewed and are negative Past Medical History Past Medical History: Osteoarthritis (OA), Pneumonia Additional Past Medical History / Comment(s): HYPOGLYCEMIA, SELF CATHETERIZATION, leaky heart valve, COVID Apr 2020, constipation, frequent UTI's History of Any Multi-Drug Resistant Organisms: None Reported Past Surgical History: Ear Surgery, Hernia Repair, Tonsillectomy Additional Past Surgical History / Comment(s): shi cataracts, mastoid surgery age 9 Past Anesthesia/Blood Transfusion Reactions: No Reported Reaction Past Psychological History: Anxiety Smoking Status: Never smoker - Past Family History Mother Family Medical History: Cancer Father Family Medical History: Cancer Medications and Allergies Home Medications Medication Instructions Recorded Confirmed Type Atorvastatin [Lipitor] 20 mg PO DAILY 02/17/18 03/01/22 History Enalapril [Vasotec] 5 mg PO DAILY 02/10/21 03/01/22 History Memantine [Namenda] 10 mg PO BID 02/10/21 03/01/22 History Donepezil [Aricept] 20 mg PO DAILY 03/01/22 03/01/22 History QUEtiapine [SEROquel] 25 mg PO BID 03/01/22 03/01/22 History Sertraline [Zoloft] 100 mg PO HS 03/01/22 03/01/22 History Allergies Allergy/AdvReac Type Severity Reaction Status Date / Time No Known Allergies Allergy Verified 02/17/21 09:04 Physical Exam Vitals: Vital Signs Temp Pulse Resp BP Pulse Ox 03/01/22 17:59 49 L 18 115/70 97 03/01/22 15:34 48 L 18 98 03/01/22 14:29 47 L 18 119/70 96 03/01/22 12:20 98.1 F 44 L 18 118/66 99 Intake and Output 03/01/22 03/01/22 03/01/22 06:59 14:59 22:59 Other: Weight 70.307 kg Constitutional: No acute distress, conversant, pleasant Eyes: Anicteric sclerae, moist conjunctiva, Pupils equal round reactive to light ENMT: NC/AT Oropharynx clear, no erythema, or exudates Neck: Supple, no masses, or JVD No carotid bruits No thyromegaly Lungs: Clear to auscultation Clear to percussion Normal respiratory effort, no accessory muscle use Cardiovascular: Heart regular in rate and rhythm, No murmurs, gallops, or rubs No peripheral edema Abdominal: Soft Nontender, no guarding, rebound or rigidity Abdomen moving with respiration Normoactive bowel sounds No hepatomegaly, No splenomegaly No palpable mass No abdominal wall hernia noted Skin: Normal temperature, tone, texture, turgor No induration No subcutaneous nodules No rash, lesions No ulcers Extremities: No digital cyanosis No clubbing Pedal pulses intact and symmetrical Radial pulses intact and symmetrical No calf tenderness Psychiatric: Alert and oriented to person, place and time Appropriate affect fair judgement Neuro Muscles Strength 5/5 in all 4 extremities Sensation to light touch grossly present throughout Cranial nerves II-XII grossly intact No focal sensory deficits Lymphatics: no palpable cervical or supraclavicular , or inguinal lymph nodes Results CBC & Chem 7: 03/01/22 12:30 03/01/22 12:30 Labs: Abnormal Lab Results - Last 24 Hours (Table) 03/01/22 03/01/22 03/01/22 Range/Units 12:30 12:30 15:13 RBC 3.83 L (4.30-5.90) m/uL Hgb 11.4 L (13.0-17.5) gm/dL Hct 35.9 L (39.0-53.0) % BUN 23 H (9-20) mg/dL Creatinine 1.49 H (0.66-1.25) mg/dL Total Protein 5.5 L (6.3-8.2) g/dL Albumin 3.3 L (3.5-5.0) g/dL Urine Protein Trace H (Negative) Urine Blood Trace H (Negative) Ur Leukocyte Esterase Large H (Negative) Urine WBC 136 H (0-5) /hpf Urine WBC Clumps Many H (None) /hpf Urine Bacteria Occasional H (None) /hpf Hyaline Casts 3 H (0-2) /lpf Urine Mucus Rare H (None) /hpf Urine Yeast (Budding) Few H (None) /hpf Assessment and Plan Assessment: syncopal episode, sinus bradycardia. 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
[2022-03-02] MEDS: QUEtiapine 25 MG TAB PO SCH ×2 (00:41→08:38)
[2022-03-02] MEDS: MEMANTINE 10 MG TAB PO SCH ×2 (00:41→08:38)
[2022-03-02 04:12] VITALS: TEMP 98.1
[2022-03-02] MEDS: SODIUM CHLORIDE 0.9% 1,000 ML IV SCH (06:54)
[2022-03-02 08:39] VITALS: BP 120/59; PULSE 52; RESP 18
[2022-03-02] MEDS ORDERED: ATORVASTATIN 20 MG TAB PO SCH (09:00)
[2022-03-02] MEDS ORDERED: DONEPEZIL 10 MG TAB PO SCH (09:00)
[2022-03-02] MEDS ORDERED: lisinopriL 10 MG TAB PO SCH (09:00)
[2022-03-02 09:29] LABS: Calcium 8.6 mg/dL (8.4-10.2); Potassium 4.1 mmol/L (3.5-5.1)
--- NOTE | 2022-03-02 11:33 | P.CRDCN ---
History of Present Illness History of present illness: This is Dr. Goddard dictating a consult on this patient The patient was interviewed and examined IMPRESSION / ASSESSMENT: Vasovagal syncope in uatsdin him a in the setting of severe posterior neck and spine pain Sinus bradycardia, patient states that this is his baseline PLAN: Orthostatics today IV hydration Ambulate in the hallways If he is not orthostatic and he is reasonably well-hydrated he should be able to go home today and follow-up with me as an outpatient No indication for permanent pacing at this time I had detailed discussion with him regarding vasovagal syncope and how to manage it HPI patient was in uatsdin. 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 EXAMINATION: Pulse rate 4752 beats a minute afebrile Blood pressure 101/57 and 120/59 mmHg Breath sounds are equal bilaterally no rhonchi no crackles Normal heart sounds No lower extremity edema REVIEW OF LABS, ECG & MEDICAL DATA Elevated BUN and creatinine. I don't have any prior data Hemoglobin 11.4 Sodium 140 potassium 4.1 Magnesium 1.8 TSH normal at 2.4 3 troponins are normal D-dimer 0.55, normal Past Medical History Past Medical History: Osteoarthritis (OA), Pneumonia Additional Past Medical History / Comment(s): HYPOGLYCEMIA, SELF CATHETERIZATION, leaky heart valve, COVID Apr 2020, constipation, frequent UTI's History of Any Multi-Drug Resistant Organisms: None Reported Past Surgical History: Ear Surgery, Hernia Repair, Tonsillectomy Additional Past Surgical History / Comment(s): shi cataracts, mastoid surgery age 9 Past Anesthesia/Blood Transfusion Reactions: No Reported Reaction Past Psychological History: Anxiety Additional Psychological History / Comment(s): dementia Smoking Status: Never smoker Past Alcohol Use History: Occasional Past Drug Use History: None Reported - Past Family History Mother Family Medical History: Cancer Father Family Medical History: Cancer Medications and Allergies Home Medications Medication Instructions Recorded Confirmed Type Atorvastatin [Lipitor] 20 mg PO DAILY 02/17/18 03/01/22 History Enalapril [Vasotec] 5 mg PO DAILY 02/10/21 03/01/22 History Memantine [Namenda] 10 mg PO BID 02/10/21 03/01/22 History Donepezil [Aricept] 20 mg PO DAILY 03/01/22 03/01/22 History QUEtiapine [SEROquel] 25 mg PO BID 03/01/22 03/01/22 History Sertraline [Zoloft] 100 mg PO HS 03/01/22 03/01/22 History Allergies Allergy/AdvReac Type Severity Reaction Status Date / Time No Known Allergies Allergy Verified 02/17/21 09:04 Physical Exam Vitals: Vital Signs Temp Pulse Pulse Resp BP BP Pulse Ox 03/02/22 08:00 98.1 F 52 L 18 120/59 95 03/02/22 04:00 98.1 F 47 L 15 101/57 100 03/02/22 00:33 98.5 F 52 L 19 132/65 95 03/01/22 21:03 51 L 15 115/66 99 03/01/22 17:59 49 L 18 115/70 97 03/01/22 15:34 48 L 18 98 03/01/22 14:29 47 L 18 119/70 96 03/01/22 12:20 98.1 F 44 L 18 118/66 99 Intake and Output 03/01/22 03/02/22 03/02/22 22:59 06:59 14:59 Intake Total 118 Output Total 900 Balance -782 Intake: Oral 118 Output: Urine 900 Other: Voiding Method Self-Catheterization Self-Catheterization Weight 70.307 kg Results 03/01/22 12:30 03/02/22 08:56 Cardiac Enzymes 03/01/22 03/01/22 03/01/22 Range/Units 12:30 12:30 22:29 AST 31 (17-59) U/L Troponin I <0.012 <0.012 (0.000-0.034) ng/mL 03/02/22 Range/Units 01:16 AST (17-59) U/L Troponin I <0.012 (0.000-0.034) ng/mL Coagulation 03/01/22 Range/Units 12:30 PT 11.0 (9.0-12.0) sec APTT 22.5 (22.0-30.0) sec CBC 03/01/22 Range/Units 12:30 WBC 6.2 (3.8-10.6) k/uL RBC 3.83 L (4.30-5.90) m/uL Hgb 11.4 L (13.0-17.5) gm/dL Hct 35.9 L (39.0-53.0) % Plt Count 165 (150-450) k/uL Comprehensive Metabolic Panel 03/01/22 03/02/22 Range/Units 12:30 08:56 Sodium 137 140 (137-145) mmol/L Potassium 4.1 4.1 (3.5-5.1) mmol/L Chloride 106 107 (98-107) mmol/L Carbon Dioxide 22 26 (22-30) mmol/L BUN 23 H 19 (9-20) mg/dL Creatinine 1.49 H 1.42 H (0.66-1.25) mg/dL Glucose 98 140 H (74-99) mg/dL Calcium 8.6 8.6 (8.4-10.2) mg/dL AST 31 (17-59) U/L ALT 16 (4-49) U/L Alkaline Phosphatase 48 (38-126) U/L Total Protein 5.5 L (6.3-8.2) g/dL Albumin 3.3 L (3.5-5.0) g/dL Current Medications Generic Name Dose Route Start Last Admin Trade Name Freq PRN Reason Stop Dose Admin Atorvastatin Calcium 20 mg 03/02/22 09:00 03/02/22 08:38 Atorvastatin 20 Mg Tab PO 20 mg DAILY MARK Administration Donepezil HCl 20 mg 03/02/22 09:00 03/02/22 08:38 Donepezil 10 Mg Tab PO 20 mg DAILY MARK Administration Sodium Chloride 1,000 mls @ 75 mls/hr 03/01/22 18:45 03/02/22 06:54 Saline 0.9% IV 75 mls/hr .[id number] MARK Administration Memantine 10 mg 03/01/22 21:00 03/02/22 08:38 Memantine 10 Mg Tab PO 10 mg BID MARK Administration Naloxone HCl 0.2 mg 03/01/22 18:44 Naloxone 0.4 Mg/Ml 1 Ml Vial IV Q2M PRN Opioid Reversal Quetiapine Fumarate 25 mg 03/01/22 21:00 03/02/22 08:38 Quetiapine 25 Mg Tab PO 25 mg BID MARK Administration Sertraline HCl 100 mg 03/01/22 21:00 03/02/22 00:42 Sertraline 100 Mg Tab PO 100 mg HS MARK Administration Intake and Output 03/01/22 03/02/22 03/02/22 22:59 06:59 14:59 Intake Total 118 Output Total 900 Balance -782 Intake: Oral 118 Output: Urine 900 Other: Voiding Method Self-Catheterization Self-Catheterization Weight 70.307 kg 03/01/22 12:30 03/02/22 08:56
--- NOTE | 2022-03-02 16:37 | P.DS ---
Providers Date of admission: 03/01/22 18:44 Expected date of discharge: 03/02/22 Attending physician: Nina Clifford MD Consults: 03/01/22 18:44 Consult Physician Routine Consulting Provider: Henry Alejo Consult Reason/Comments: Syncope, bradycardia Do you want consulting provider notified?: Yes Primary care physician: Chapincito Lee Hospital Course: Discharge Diagnosis: Syncope Dehydration CKD, DANIELE ruled out HTN Hospital Course: Patient is an 86-year-old male with hypertension, urinary retention requiring self cath and frequent urinary tract infections, osteoarthritis, and prior hypoglycemia who presented to the ER with a syncopal episode. In the ED he underwent an extensive evaluation. EKG showed sinus bradycardia without any acute ST segment changes. Laboratory analysis demonstrated elevated creatinine, this appears consistent with his prior known creatinine, and urinalysis demonstrated bacteriuria with increased white blood cells. He was admitted for further monitoring. Cardiology was consulted. Telemetry demonstrated sinus bradycardia. Troponins remained negative. Orthostatics were negative. Cardiology recommended patient follow up in the outpatient setting. He is feeling back to baseline and had no other complaints. I discussed with the patient that he is on multiple QT prolonging agents. His QT was within normal limits here at 453. Cardiology did not feel he had any indications for permanent pacemaker. We also discussed the Aricept has been associated with car diac conduction abnormalities and hypotension as well as syncope. I have asked him to discuss with his primary care physician whether or not he should remain on Aricept at this time. I have told him he should not drive until he has seen cardio and his primary physician as he has had a near syncopal episode. Patient is in agreement. I also alerted nursing to remind him that he is not to drive o n discharge. He was discharged home in stable condition. He was taken off of his JERRY inhibitor at low blood pressures during his hospital stay had been less than 120/59. Follow-up: [facility] care physician at [facility] in 2-3 days, Dr. Ramos in 1 week. Off lisinopril. Increase fluid intake. Patient seen and examined at bedside. Feeling back to baseline. No additional lightheadedness, dizziness, or neck pain. Would like to follow up with cardiology in the outpatient setting if possible. Vital signs reviewed and stable. General: nontoxic, no distress, appears at stated age Derm: warm, dry Head: atraumatic, normocephalic, symmetric Eyes: EOMI, no lid lag, anicteric sclera Mouth: no lip lesion, mucus membranes moist Cardiovascular: S1S2 reg, no murmur, positive posterior tibial pulse bilateral, Lungs: CTA bilateral, no rhonchi, no rales , no accessory muscle use Abdominal: soft, nontender to palpation, no guarding, no appreciable organomegaly Ext: no gross muscle atrophy, no edema, no contractures Neuro: CN II-XI grossly intact, no focal neuro deficits Psych: Alert, oriented, appropriate affect A total of 25 minutes of time were spent preparing this complex discharge summary. Patient was discharged on 03/02/22. Patient Condition at Discharge: Stable Plan - Discharge Summary Discharge Rx Participant: No New Discharge Prescriptions: Continue Atorvastatin [Lipitor] 20 mg PO DAILY Memantine [Namenda] 10 mg PO BID Sertraline [Zoloft] 100 mg PO HS QUEtiapine [SEROquel] 25 mg PO BID Donepezil [Aricept] 20 mg PO DAILY Discontinued Enalapril [Vasotec] 5 mg PO DAILY Discharge Medication List Atorvastatin [Lipitor] 20 mg PO DAILY 02/17/18 [History] Memantine [Namenda] 10 mg PO BID 02/10/21 [History] Donepezil [Aricept] 20 mg PO DAILY 03/01/22 [History] QUEtiapine [SEROquel] 25 mg PO BID 03/01/22 [History] Sertraline [Zoloft] 100 mg PO HS 03/01/22 [History] Follow up Appointment(s)/Referral(s): Winston Goddard MD [STAFF PHYSICIAN] - 1 Week Chapincito Lee MD [Primary Care Provider] - 1-2 days Patient Instructions/Handouts: Dehydration (DC), Syncope (DC) Activity/Diet/Wound Care/Special Instructions: Please speak with [facility] as to if you should stay on Aricept as a known side effect of this medication is low blood pressure and fainting episode. Discharge Disposition: HOME SELF-CARE
== END 2022-03-02 14:09 | disposition home or self-care (01) ==
LOC: EC 12:19 → 3SCARD 18:44
PROVIDERS: ADMIT Family Medicine; ATTEND Family Medicine
DX: R55 Syncope and collapse (principal); R00.1 Bradycardia, unspecified; E86.0 Dehydration; I10 Essential (primary) hypertension; I95.9 Hypotension, unspecified; R33.9 Retention of urine, unspecified; Z87.440 Personal history of urinary (tract) infections; E16.2 Hypoglycemia, unspecified; M19.90 Unspecified osteoarthritis, unspecified site; R94.4 Abnormal results of kidney function studies; Z98.42 Cataract extraction status, left eye; Z98.41 Cataract extraction status, right eye; Z98.890 Other specified postprocedural states; F41.9 Anxiety disorder, unspecified; Z80.9 Family history of malignant neoplasm, unspecified; F03.90 Unspecified dementia, unspecified severity, without behavioral disturbance, psychotic disturbance, mood disturbance, and anxiety; Z79.899 Other long term (current) drug therapy
CPT/HCPCS: 96374; 99291; 36415; 93005; 85379; 80053; 80048; 84443; 83735; 84484 ×2; 85025; 85610; 85730; 81001; 87086; 71046; 70450; G0378 ×2; J2405

== ENCOUNTER 2023-01-18 06:33 | Day surgery (SDC) | payer MEDICARE, OTHER ==
[2023-01-13 16:03] VITALS: BMI 25.8
[~2023-01-18 06:33] MED LIST changes: -ACETAMINOPHEN TAB 500 MG TAB PO PRN; -HEPARIN SODIUM,PORCINE/PF 5,000 UNIT/0.5 ML SYRINGE SQ PRN; -LACTATED RINGERS 1,000 ML IV SCH; -LIDOCAINE 1% (10MG/ML) FOR IV START INTRADERMA PRN; -ONDANSETRON 4 MG/2 ML VIAL IVP ONE; +SODIUM CHLORIDE 0.9% 1,000 ML IV SCH
[2023-01-18 07:04] VITALS: BP 187/86; PULSE 78; RESP 18; TEMP 97.8
--- NOTE | 2023-01-18 16:39 | P.EPPROC ---
- EP Procedure Note Electrophysiology Procedure Note: Diagnosis Recurrent syncope Twelve-lead EKG Sinus rhythm normal MN (ms fascicular block, minimally prolonged QT interval 486 ms Tilt table test per protocol Baseline blood pressure 185/80 mmHg Baseline heart rate 50 beats a minute Patient was tilted upright at an angle of 70 per protocol There is in immediate drop in blood pressure 166/81 mmHg The patient remains asymptomatic at that time At 20 minutes into the tilt table test there was an abrupt drop in blood pressure to less than 72/50 mmHg. Heart rate was 49 beats a minute Patient did not feel well. He was lethargic, dry heaving clammy. 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
== END 2023-01-18 10:20 | disposition home or self-care (01) ==
LOC: CATHEP 06:33
PROVIDERS: ATTEND Internal Medicine Clinical Cardiac Electrophysiology
DX: I44.60 Unspecified fascicular block (principal); E78.5 Hyperlipidemia, unspecified; I10 Essential (primary) hypertension; F17.210 Nicotine dependence, cigarettes, uncomplicated; Z79.899 Other long term (current) drug therapy
CPT/HCPCS: 93660

== ENCOUNTER 2023-08-25 15:52 | Inpatient (IN) | payer MEDICARE, OTHER ==
--- NOTE | 2023-08-25 16:44 | ED ---
Male Urogenital HPI - General Source: patient, family, RN notes reviewed <Barb Mendes - Last Filed: 08/25/23 16:42> - General Source: patient, family, RN notes reviewed, old records reviewed Mode of arrival: ambulatory Limitations: no limitations - History of Present Illness MD Complaint: dysuria -: days(s) Location: penis Radiation: none Severity: moderate Severity scale (1-10): 4 Consistency: constant Improves with: urination Worsens with: none indwelling catheter Reports: urinary retention <Henry Howell - Last Filed: 08/31/23 17:41> - General Stated complaint: Trouble urinating Time Seen by Provider: 08/25/23 16:43 - History of Present Illness Initial comments: Patient is an 88-year-old male presented to ER with chief complaint of UTI. This been an ongoing problem for the past month. Has followed up with Dr. Monique herrera. Family is now reporting he has been complaining of dizziness, confusion and nausea. Patient does straight cath himself daily. (Barb Mendes) This is a 88-year-old female to ER with recurrent urinary tract infection recently off antibiotics. Patient does see urology is coming in for dizziness and nausea does self catheterize (Henry Howell) - Related Data Home Medications Medication Instructions Recorded Confirmed Atorvastatin [Lipitor] 20 mg PO HS 02/17/18 08/25/23 Donepezil [Aricept] 20 mg PO DAILY 03/01/22 08/25/23 Sertraline [Zoloft] 100 mg PO HS 03/01/22 08/25/23 Cetirizine HCl [Zyrtec] 10 mg PO DAILY 08/25/23 08/25/23 Midodrine HCl [ProAmantine] 2.5 mg PO TID PRN 08/25/23 08/25/23 Vitamin C(Unknown Dose) 1 tab PO DAILY 08/25/23 08/25/23 Vitamin D3(Unknown Dose) 1 tab PO DAILY 08/25/23 08/25/23 Previous Rx's Medication Instructions Recorded Acetaminophen Tab [Tylenol] 650 mg PO Q6HR PRN tab 08/30/23 Amoxic-Pot Clav 875-125Mg 1 tab PO Q12HR 5 Days #10 tab 08/30/23 [Augmentin 875-125] Allergies Allergy/AdvReac Type Severity Reaction Status Date / Time No Known Allergies Allergy Verified 08/25/23 20:28 Review of Systems ROS Other: All systems not noted in ROS Statement are negative. <Barb Mendes - Last Filed: 08/25/23 16:42> ROS Other: All systems not noted in ROS Statement are negative. <Henry Howell - Last Filed: 08/31/23 17:41> ROS Statement: Those systems with pertinent positive or pertinent negative responses have been documented in the HPI. Past Medical History Past Medical History: Dementia, Osteoarthritis (OA), Pneumonia, Syncope Additional Past Medical History / Comment(s): SEE DR GROSS'S H&P. HYPOGLYCEMIA, SELF CATHETERIZATION, leaky heart valve, COVID Apr 2020, consti pation, frequent UTI's History of Any Multi-Drug Resistant Organisms: None Reported Past Surgical History: Ear Surgery, Hernia Repair, Tonsillectomy Additional Past Surgical History / Comment(s): shi cataracts, mastoid surgery age 9 Past Anesthesia/Blood Transfusion Reactions: No Reported Reaction Past Psychological History: Anxiety Additional Psychological History / Comment(s): dementia Smoking Status: Never smoker Past Alcohol Use History: Rare Past Drug Use History: None Reported - Past Family History Mother Family Medical History: Cancer Father Family Medical History: Cancer <Barb Mendes - Last Filed: 08/25/23 16:42> General Exam <JimmieBarb michaels - Last Filed: 08/25/23 16:42> General appearance: alert, in no apparent distress, anxious Head exam: Present: atraumatic, normocephalic, normal inspection Eye exam: Present: normal appearance, PERRL, EOMI. Absent: scleral icterus, conjunctival injection, periorbital swelling ENT exam: Present: normal exam, mucous membranes moist Neck exam: Present: normal inspection. Absent: tenderness, meningismus, lymphadenopathy Respiratory exam: Present: normal lung sounds bilaterally. Absent: respiratory distress, wheezes, rales, rhonchi, stridor Cardiovascular Exam: Present: regular rate, normal rhythm, normal heart sounds. Absent: systolic murmur, diastolic murmur, rubs, gallop, clicks GI/Abdominal exam: Present: soft, normal bowel sounds. Absent: distended, tenderness, guarding, rebound, rigid Extremities exam: Present: normal inspection, full ROM, normal capillary refill. Absent: tenderness, pedal edema, joint swelling, calf tenderness Back exam: Present: normal inspection Neurological exam: Present: alert, oriented X3, CN II-XII intact Psychiatric exam: Present: normal affect, normal mood Skin exam: Present: warm, dry, intact, normal color. Absent: rash <Henry Howell - Last Filed: 08/31/23 17:41> - General Exam Comments Initial Comments: Visual Physical Exam Vital signs reviewed General: Well-appearing, nontoxic, no acute distress. Head: Normocephalic, atraumatic Eyes: PERRLA, EOMI ENT: Airway patent Chest: Nonlabored breathing Skin: No visual rash, normal skin tone Neuro: Alert and oriented 3 Musculoskeletal: No gross abnormalities (Barb Mendes) Course <Henry Howell - Last Filed: 08/31/23 17:41> Vital Signs 08/25/23 08/25/23 08/26/23 16:40 20:45 05:23 Temperature 97.8 F 97.9 F 98.4 F Pulse Rate 55 L 65 61 Pulse Rate [ Pulse Oximetery ] Respiratory 18 16 18 Rate Blood Pressure 135/86 122/76 120/72 Blood Pressure [Right Arm] O2 Sat by Pulse 96 95 98 Oximetry 08/26/23 08/26/23 08/26/23 08:15 14:50 16:49 Temperature 96.9 F L 96.9 F L 97.2 F L Pulse Rate 56 L Pulse Rate [ 53 L 54 L Pulse Oximetery ] Respiratory 16 16 19 Rate Blood Pressure 160/86 Blood Pressure 163/85 160/95 [Right Arm] O2 Sat by Pulse 97 96 96 Oximetry - Reevaluation(s) Reevaluation #1: 08/25/23 21:03 Medical record is reviewed (Henry Howell) Reevaluation #2: 08/25/23 21:03 Patient symptoms are unchanged (Henry Howell) Reevaluation #3: 08/25/23 21:03 Patient informed of results and questions answered (Henry Howell) Reevaluation #4: Was pt. sent in by a medical professional or institution ([facility], [employer], urgent care, hospital, or [facility]...) When possible be specific @ -no Did you speak to anyone other than the patient for history (EMS, parent, family, police, friend...)? What history was obtained from this source @ -no Did you review nursing and triage notes (agree or disagree)? Why? @ -agree Are old charts reviewed (outside hosp., previous admission, EMS record, old EKG, old radiological studies, urgent care reports/EKG's, [facility] records)? Report findings @ -yes Differential Diagnosis (chest pain, altered mental status, abdominal pain women, abdominal pain men, vaginal bleeding, weakness, fever, dyspnea, syncope, headache, dizziness, GI bleed, back pain, seizure, CVA, palpatations, mental health, musculoskeletal)? @ -prior EKG interpreted by me (3pts min.). @ -yes X-rays interpreted by me (1pt min.). @ -no CT interpreted by me (1pt min.). @ -Negative for acute disease U/S interpreted by me (1pt. min.). @ -no What testing was considered but not performed or refused? (CT, X-rays, U/S, labs)? Why? @ -none What meds were considered but not given or refused? Why? @ -none Did you discuss the management of the patient with other professionals (prof de la garza i.e. [facility], [employer], lab, RT, psych nurse, forensic social worker, test bore helper, teacher, [place] police officer, casework manager)? Give summary @ -no Was smoking cessation discussed for >3mins.? @ -no Was critical care preformed (if so, how long)? @ -no Were there social determinants of health that impacted care today? How? (Homelessness, low income, unemployed, alcoholism, drug addiction, transportation, low edu. Level, literacy, decrease access to med. care, custodial, rehab)? @ -none Was there de-escalation of care discussed even if they declined (Discuss DNR or withdrawal of care, Hospice)? DNR status @ -no What co-morbidities impacted this encounter? (DM, HTN, Smoking, COPD, CAD, Cancer, CVA, ARF, Chemo, Hep., AIDS, mental health diagnosis, sleep apnea, morbid obesity)? @ -none Was patient admitted / discharged? Hospital course, mention meds given and route, prescriptions, significant lab abnormalities, going to OR and other pertinent info. @ - 88 male to ER for evaluation of urinary tract infection. Patient has persistent UTI here in the ER despite outpatient antibiotics and patient to be admitted for IV antibiotics and urine culture Admitted Undiagnosed new problem with uncertain prognosis? @ -no Drug Therapy requiring intensive monitoring for toxicity (Heparin, Nitro, Insulin, Cardizem)? @ -no Were any procedures done? @ -no Diagnosis/symptom? @ -UTI, weakness urinary retention Acute, or Chronic, or Acute on Chronic? @ -Acute Uncomplicated (without systemic symptoms) or Complicated (systemic symptoms)? @ -Complicated Side effects of treatment? @ -no Exacerbation, Progression, or Severe Exacerbation? @ -exacerbation Poses a threat to life or bodily function? How? (Chest pain, [place], [place], pneumonia, PE, COPD, DKA, ARF, appy, cholecystitis, CVA, Diverticulitis, Homicidal, Suicidal, threat to staff... and all critical care pts) @ -yes (Henry Howell) Reevaluation #5: Differential Abdominal Pain Men: Appendicitis, cholecystitis, diverticulosis, ischemic bowel, pancreatitis, hepatitis, UTI, gastroenteritis, AAA, incarcerated hernia, bowel obstruction, constipation, inflammatory bowel, hepatitis, peptic ulcer disease, splenic infarction, perforated viscus, testicular torsion, this is not meant to be an all-inclusive list (Henry Howell) - Consultations Consultation #1: Spoke with admitting physicians who agreed admit this patient (Henry Howell) Medical Decision Making <Barb Mendes - Last Filed: 08/25/23 16:42> - Lab Data Result diagrams: 08/29/23 06:10 08/30/23 04:39 - Radiology Data Radiology results: report reviewed (CT of the abdomen pelvis is negative for acute disease), image reviewed <Henry Howell - Last Filed: 08/31/23 17:41> - Medical Decision Making I performed the quick note portion of this chart. Electronically signed by Barb Mendes PA-C (Barb Mendes) 88 male to ER for evaluation of urinary tract infection. Patient has persistent UTI here in the ER despite outpatient antibiotics and patient to be admitted for IV antibiotics and urine culture (Henry Howell) - Lab Data Lab Results 08/25/23 08/25/23 08/25/23 Range/Units 17:20 17:20 17:20 WBC 8.3 (3.8-10.6) k/uL RBC 4.47 (4.30-5.90) m/uL Hgb 14.2 (13.0-17.5) gm/dL Hct 40.7 (39.0-53.0) % MCV 91.0 (80.0-100.0) fL MCH 31.7 (25.0-35.0) pg MCHC 34.8 (31.0-37.0) g/dL RDW 13.7 (11.5-15.5) % Plt Count 200 (150-450) k/uL MPV 9.7 Sodium 139 (137-145) mmol/L Potassium 4.2 (3.5-5.1) mmol/L Chloride 107 (98-107) mmol/L Carbon Dioxide 25 (22-30) mmol/L Anion Gap 7 mmol/L BUN 39 H (9-20) mg/dL Creatinine 1.20 (0.66-1.25) mg/dL Est GFR (CKD-EPI)AfAm 62 (>60 ml/min/1.73 sqM) Est GFR (CKD-EPI)NonAf 53 (>60 ml/min/1.73 sqM) Glucose 149 H (74-99) mg/dL Plasma Lactic Acid Gurvinder (0.7-2.0) mmol/L Calcium 9.9 (8.4-10.2) mg/dL Total Bilirubin 0.5 (0.2-1.3) mg/dL AST 32 (17-59) U/L ALT 17 (4-49) U/L Alkaline Phosphatase 58 (38-126) U/L Total Protein 6.8 (6.3-8.2) g/dL Albumin 3.8 (3.5-5.0) g/dL Lipase (23-300) U/L Urine Color Colorless Urine Appearance Cloudy (Clear) Urine pH 5.5 (5.0-8.0) Ur Specific [place] 1.017 (1.001-1.035) Urine Protein Trace H (Negative) Urine Glucose (UA) Negative (Negative) Urine Ketones Negative (Negative) Urine Blood Negative (Negative) Urine Nitrite Negative (Negative) Urine Bilirubin Negative (Negative) Urine Urobilinogen <2.0 (<2.0) mg/dL Ur Leukocyte Esterase Large H (Negative) Urine WBC 154 H (0-5) /hpf Ur Squamous Epith Cells <1 (0-4) /hpf Urine Bacteria Rare H (None) /hpf Hyaline Casts 1 (0-2) /lpf Urine Mucus Rare H (None) /hpf 08/25/23 08/25/23 Range/Units 17:20 18:33 WBC (3.8-10.6) k/uL RBC (4.30-5.90) m/uL Hgb (13.0-17.5) gm/dL Hct (39.0-53.0) % MCV (80.0-100.0) fL MCH (25.0-35.0) pg MCHC (31.0-37.0) g/dL RDW (11.5-15.5) % Plt Count (150-450) k/uL MPV Sodium (137-145) mmol/L Potassium (3.5-5.1) mmol/L Chloride (98-107) mmol/L Carbon Dioxide (22-30) mmol/L Anion Gap mmol/L BUN (9-20) mg/dL Creatinine (0.66-1.25) mg/dL Est GFR (CKD-EPI)AfAm (>60 ml/min/1.73 sqM) Est GFR (CKD-EPI)NonAf (>60 ml/min/1.73 sqM) Glucose (74-99) mg/dL Plasma Lactic Acid Gurvinder 1.4 (0.7-2.0) mmol/L Calcium (8.4-10.2) mg/dL Total Bilirubin (0.2-1.3) mg/dL AST (17-59) U/L ALT (4-49) U/L Alkaline Phosphatase (38-126) U/L Total Protein (6.3-8.2) g/dL Albumin (3.5-5.0) g/dL Lipase 171 (23-300) U/L Urine Color Urine Appearance (Clear) Urine pH (5.0-8.0) Ur Specific [place] (1.001-1.035) Urine Protein (Negative) Urine Glucose (UA) (Negative) Urine Ketones (Negative) Urine Blood (Negative) Urine Nitrite (Negative) Urine Bilirubin (Negative) Urine Urobilinogen (<2.0) mg/dL Ur Leukocyte Esterase (Negative) Urine WBC (0-5) /hpf Ur Squamous Epith Cells (0-4) /hpf Urine Bacteria (None) /hpf Hyaline Casts (0-2) /lpf Urine Mucus (None) /hpf Disposition <Babr Mendes - Last Filed: 08/25/23 16:42> Is patient prescribed a controlled substance at d/c from ED?: No Time of Disposition: 21:00 <Henry Howell - Last Filed: 08/31/23 17:41> Clinical Impression: Dehydration, Acute kidney injury, Urinary tract infection Disposition: ADMITTED IP TO THIS HOSP Condition: Fair
[2023-08-25 17:53] LABS: HCT 40.7 % (39.0-53.0); HGB 14.2 gm/dL (13.0-17.5); MCH 31.7 pg (25.0-35.0); MCHC 34.8 g/dL (31.0-37.0); Mean Platelet Volume 9.7; Platelet Count 200 k/uL (150-450); RBC 4.47 m/uL (4.30-5.90); RDW 13.7 % (11.5-15.5); WBC 8.3 k/uL (3.8-10.6)
[2023-08-25 18:23] LABS: ALT 17 U/L (4-49); AST 32 U/L (17-59); African American GFR (CKD) 62 (>60 ml/min/1.73 sqM); Albumin 3.8 g/dL (3.5-5.0); Alkaline Phosphatase 58 U/L (38-126); Anion Gap 7 mmol/L; Blood Urea Nitrogen 39 mg/dL (9-20); Calcium 9.9 mg/dL (8.4-10.2); Carbon Dioxide 25 mmol/L (22-30); Chloride 107 mmol/L (98-107); Glucose 149 mg/dL (74-99); Non-African American GFR(CKD) 53 (>60 ml/min/1.73 sqM); Potassium 4.2 mmol/L (3.5-5.1); Sodium 139 mmol/L (137-145); Total Bilirubin 0.5 mg/dL (0.2-1.3); Total Protein 6.8 g/dL (6.3-8.2)
[2023-08-25] MEDS: SODIUM CHLORIDE 0.9% 1,000 ML IV STA (18:47)
--- NOTE | 2023-08-25 20:10 | CT ---
EXAMINATION TYPE: CT abdomen pelvis wo con CT DLP: 538.7 mGycm, Automated exposure control for dose reduction was used. DATE OF EXAM: 08/25/2023 7:54 PM COMPARISON: None. CLINICAL INDICATION:Male, 88 years old with history of abdominal pain; bladder infection, urine reten tion TECHNIQUE: Axial CT of the abdomen and pelvis. Sagittal and coronal reformats were created on a [employer] workstation. Contrast used: mL of , (none if empty) Oral contrast used: without Oral Contrast (none if empty) FINDINGS: Exam is limited without contrast. LOWER CHEST: Heart size upper normal. Calcifications of the aortic valve and coronary arteries. Scarr ing versus subsegmental atelectasis in the lung bases. ABDOMEN LIVER: Unremarkable GALLBLADDER AND BILE DUCTS: Unremarkable gallbladder. No biliary ductal dilatation. PANCREAS: Mild fatty infiltration without acute finding SPLEEN: Unremarkable. ADRENAL GLANDS: Mildly thickened and small nodular appearance of the adrenals, could be due to hyperp lasia and/or adenomatoid changes. KIDNEYS AND URETERS: Unenhanced kidneys show no evidence of renal calculi or contour deformity. Exoph ytic low-attenuation nodules from both kidneys, the appearance suggests cysts but are not fully marissa cterized. Mildly prominent bilateral extrarenal pelves without dilated ureters seen. PELVIS BLADDER: Bladder is decompressed and not well evaluated. Lobular thickened appearance of the bladder, despite the nondistention. REPRODUCTIVE: Prostate is enlarged measuring up to 6 cm transverse with multiple parenchymal calcific ations, left more than right. ABDOMEN & PELVIS STOMACH AND BOWEL: Small hiatal hernia. The stomach and small bowel show no significant distention. The appendix is not seen with certainty but there is no inflammatory process seen in the pericecal re gion. Mild to moderate stool in the colon and multiple colonic diverticula without clear evidence of acute inflammation. PERITONEUM/RETROPERITONEUM: No evidence of pneumoperitoneum or free fluid. VASCULATURE: Moderate atherosclerotic calcifications are present throughout the abdominal aorta and i ts branches. No evidence of aortic aneurysm. LYMPH NODES: No gross evidence for lymphadenopathy. SOFT TISSUE/ABDOMINAL WALL: Mild laxity along the anterior abdominal wall musculature with small fat- containing umbilical hernia. Tiny fat-containing right inguinal hernia. MUSCULOSKELETAL: No acute osseous abnormalities. Moderate disc degeneration changes are present throu ghout the thoracolumbar spine. Moderate to severe multilevel lumbar spinal canal and foraminal stenos es suggested, most pronounced L3-L4 and L4-L5. Degenerative changes of the SI joints and hips also se en. IMPRESSION: 1. Limited unenhanced study shows no acute inflammatory or obstructive process in the abdomen or pel vis. 2. Enlarged prostate gland, as above. Clinical and PSA correlation recommended. 3. Bladder is decompressed and not well evaluated. Nevertheless a thickened lobulated appearance of the bladder wall, could be due to incomplete distention and bladder wall hypertrophy, with superimpos ed cystitis also possible. 4. Colonic diverticula are present, without signs of inflammation to suggest diverticulitis.
[2023-08-25 20:15] LABS: Appearance,Urine Cloudy (Clear); Bacteria,Urine Rare /hpf; Bilirubin,Urine Negative (Negative); Blood,Urine Negative (Negative); Color,Urine Colorless; Glucose,Urine (UA) Negative (Negative); Hyaline Casts,Urine 1 /lpf (0-2); Ketones,Urine Negative (Negative); Leukocyte Esterase,Urine Large (Negative); Mucus,Urine Rare /hpf; Nitrite,Urine Negative (Negative); PH, Urine 5.5 (5.0-8.0); Protein,Urine Trace (Negative); Specific Gravity,Urine 1.017 (1.001-1.035); Squamous Epithelial Cell,Urine <1 /hpf (0-4); Urobilinogen,Urine <2.0 mg/dL (<2.0); WBC,Urine 154 /hpf (0-5)
[2023-08-25] MEDS ORDERED: ONDANSETRON 4 MG/2 ML VIAL IVP PRN (21:01)
[2023-08-25] MEDS ORDERED: NALOXONE 0.4 MG/ML 1 ML VIAL IV PRN (21:01)
[2023-08-25] MEDS ORDERED: IBUPROFEN 400 MG TAB PO PRN (21:01)
[2023-08-25] MEDS ORDERED: ACETAMINOPHEN TAB 325 MG TAB PO PRN (21:01)
[2023-08-25] MEDS ORDERED: MORPHINE SULFATE 4 MG/ML SYRINGE IV PRN (21:01)
[2023-08-25] MEDS: AMPICILLIN-SULBACTAM 3 GM in SODIUM CHLORIDE 0.9% 100 ML IVPB STA (22:53)
[2023-08-25] MEDS: SODIUM CHLORIDE 0.9% 1,000 ML IV SCH (22:54)
[2023-08-26] MEDS: AMPICILLIN-SULBACTAM 3 GM in SODIUM CHLORIDE 0.9% 100 ML IVPB SCH (05:19)
--- NOTE | 2023-08-26 08:03 | P.GSCN ---
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 He has been on clean intermittent catheterization for many years. He recently had a urinary tract infection that was treated with antibiotics. His weakness and disorientation persisted thus a family brought him back to the emergency room. His urine still inflamed. The patient and nursing staff have been unable to pass a catheter. His retention is greater than 400 mL. I've been asked to 1 see the patient in follow-up into place a catheter. He stated that he last catheterized last night. There's no fever or chills. Her white count is normal. The urine is inflamed. Review of Systems All systems: negative - Constitutional Denies fever, Denies weight loss - EENT Eyes: denies blurred vision Ears, nose, mouth and throat: Denies dysphagia - Cardiovascular Denies chest pain, Denies shortness of breath - Respiratory Denies cough, Denies 7 - Gastrointestinal Reports as per HPI - Genitourinary Denies dysuria, Denies hematuria - Integumentary Denies rash, Denies unusual bruising - Neurological Denies headaches, Denies syncope - Hematologic/Lymphatic Denies easy bleeding, Denies easy bruising Past Medical History Past Medical History: Dementia, Osteoarthritis (OA), Pneumonia, Syncope Additional Past Medical History / Comment(s): SEE DR GROSS'S H&P. HYPOGLYCEMIA, SELF CATHETERIZATION, leaky heart valve, COVID Apr 2020, constipation, frequent UTI's History of Any Multi-Drug Resistant Organisms: None Reported Past Surgical History: Ear Surgery, Hernia Repair, Tonsillectomy Additional Past Surgical History / Comment(s): shi cataracts, mastoid surgery age 9 Past Anesthesia/Blood Transfusion Reactions: No Reported Reaction Past Psychological History: Anxiety Additional Psychological History / Comment(s): dementia Smoking Status: Never smoker Past Alcohol Use History: Rare Past Drug Use History: None Reported - Past Family History Mother Family Medical History: Cancer Father Family Medical History: Cancer Medications and Allergies Home Medications Medication Instructions Recorded Confirmed Type Atorvastatin [Lipitor] 20 mg PO HS 02/17/18 08/25/23 History Donepezil [Aricept] 20 mg PO DAILY 03/01/22 08/25/23 History Sertraline [Zoloft] 100 mg PO HS 03/01/22 08/25/23 History Cetirizine HCl [Zyrtec] 10 mg PO DAILY 08/25/23 08/25/23 History Midodrine HCl [ProAmantine] 2.5 mg PO TID PRN 08/25/23 08/25/23 History Vitamin C(Unknown Dose) 1 tab PO DAILY 08/25/23 08/25/23 History Vitamin D3(Unknown Dose) 1 tab PO DAILY 08/25/23 08/25/23 History Allergies Allergy/AdvReac Type Severity Reaction Status Date / Time No Known Allergies Allergy Verified 08/25/23 20:28 Surgical - Exam Vital Signs Temp Pulse Resp BP Pulse Ox 97.8 F 55 L 18 135/86 96 08/25/23 16:40 08/25/23 16:40 08/25/23 16:40 08/25/23 16:40 08/25/23 16:40 Results - Labs 08/25/23 17:20 08/25/23 17:20 Abnormal Lab Results - Last 24 Hours (Table) 08/25/23 08/25/23 Range/Units 17:20 17:20 BUN 39 H (9-20) mg/dL Glucose 149 H (74-99) mg/dL Urine Protein Trace H (Negative) Ur Leukocyte Esterase Large H (Negative) Urine WBC 154 H (0-5) /hpf Urine Bacteria Rare H (None) /hpf Urine Mucus Rare H (None) /hpf Diabetes panel 08/25/23 Range/Units 17:20 Sodium 139 (137-145) mmol/L Potassium 4.2 (3.5-5.1) mmol/L Chloride 107 (98-107) mmol/L Carbon Dioxide 25 (22-30) mmol/L BUN 39 H (9-20) mg/dL Creatinine 1.20 (0.66-1.25) mg/dL Glucose 149 H (74-99) mg/dL Calcium 9.9 (8.4-10.2) mg/dL AST 32 (17-59) U/L ALT 17 (4-49) U/L Alkaline Phosphatase 58 (38-126) U/L Total Protein 6.8 (6.3-8.2) g/dL Albumin 3.8 (3.5-5.0) g/dL Calcium panel 08/25/23 Range/Units 17:20 Calcium 9.9 (8.4-10.2) mg/dL Albumin 3.8 (3.5-5.0) g/dL Pituitary panel 08/25/23 Range/Units 17:20 Sodium 139 (137-145) mmol/L Potassium 4.2 (3.5-5.1) mmol/L Chloride 107 (98-107) mmol/L Carbon Dioxide 25 (22-30) mmol/L BUN 39 H (9-20) mg/dL Creatinine 1.20 (0.66-1.25) mg/dL Glucose 149 H (74-99) mg/dL Calcium 9.9 (8.4-10.2) mg/dL Adrenal panel 08/25/23 Range/Units 17:20 Sodium 139 (137-145) mmol/L Potassium 4.2 (3.5-5.1) mmol/L Chloride 107 (98-107) mmol/L Carbon Dioxide 25 (22-30) mmol/L BUN 39 H (9-20) mg/dL Creatinine 1.20 (0.66-1.25) mg/dL Glucose 149 H (74-99) mg/dL Calcium 9.9 (8.4-10.2) mg/dL Total Bilirubin 0.5 (0.2-1.3) mg/dL AST 32 (17-59) U/L ALT 17 (4-49) U/L Alkaline Phosphatase 58 (38-126) U/L Total Protein 6.8 (6.3-8.2) g/dL Albumin 3.8 (3.5-5.0) g/dL Assessment and Plan Assessment: Impression: Urinary tract infection. Urethral stricture or false passage. Neurogenic bladder on chronic intermittent catheterization Recommendations: Catheterization.
--- NOTE | 2023-08-26 08:06 | P.PCN ---
Date of Procedure: 08/26/23 Preoperative Diagnosis: Urine retention, neurogenic bladder Postoperative Diagnosis: Same, urethral stricture and/or false passage Procedure(s) Performed: Difficult catheterization with placement of 12 follower Pathology: none sent Disposition: floor Indications for Procedure: Patient has a hypotonic neurogenic bladder. For years he has been on chronic intermittent catheterization. He is in the hospital with persistent urine infection. He is been unable to pass a catheter nor has a nursing staff several attempts. Description of Procedure: The patient is prepped and draped sterilely. I first attempted to pass a 14- [place] coud-tip catheter but meet resistance in the prostatic urethra or deep bulbar urethra. I then elected to try filiforms and followers. I passed a 3- [place] spiral filiform into the bladder. I'm able to dilate with 810 and 12 followers but cannot get a 14 follower into the bladder. I removed the filiform and attempt to pass a 12-[place] coud-tip catheter but there is too much resistance in the prostatic urethra. Whether there is a false passage or scar tissue is indeterminate. Patient normally uses a stiff catheter, 12 or 14- [place]. Re-pass a filiform and attached the 12 follower into the bladder. There is clear urine return. The plan is to leave the follower in for 24-48 hours for auto dilation and then pass a coud-tip catheter after that. The followers tape securely to the penis and scan so hopefully it will not fall out. I will revisit this in 24 hours.
[2023-08-26 08:40] LABS: ALT 14 U/L (4-49); AST 24 U/L (17-59); African American GFR (CKD) 69 (>60 ml/min/1.73 sqM); Alkaline Phosphatase 48 U/L (38-126); Anion Gap 5 mmol/L; Blood Urea Nitrogen 28 mg/dL (9-20); Calcium 8.7 mg/dL (8.4-10.2); Carbon Dioxide 24 mmol/L (22-30); Chloride 111 mmol/L (98-107); Glucose 87 mg/dL (74-99); Magnesium 1.9 mg/dL (1.6-2.3); Non-African American GFR(CKD) 60 (>60 ml/min/1.73 sqM); Phosphorus 3.4 mg/dL (2.5-4.5); Sodium 140 mmol/L (137-145); Total Bilirubin 0.5 mg/dL (0.2-1.3); Total Protein 5.5 g/dL (6.3-8.2)
[2023-08-26 09:05] LABS: Basophils % (A) 1 %; Eosinophils # (A) 0.2 k/uL (0-0.7); Eosinophils % (A) 3 %; HCT 37.3 % (39.0-53.0); HGB 12.4 gm/dL (13.0-17.5); Lymphocytes # (A) 1.5 k/uL (1.0-4.8); Lymphocytes % (A) 23 %; MCH 30.9 pg (25.0-35.0); MCHC 33.2 g/dL (31.0-37.0); MCV 92.9 fL (80.0-100.0); Mean Platelet Volume 9.4; Monocytes # (A) 0.5 k/uL (0-1.0); Monocytes % (A) 7 %; Neutrophils # (A) 4.3 k/uL (1.3-7.7); Neutrophils % (A) 65 %; Platelet Count 191 k/uL (150-450); RBC 4.02 m/uL (4.30-5.90); RDW 13.5 % (11.5-15.5); WBC 6.6 k/uL (3.8-10.6)
[2023-08-26] MEDS: PANTOPRAZOLE 40 MG/10 ML VIAL IV SCH (09:52)
[2023-08-26] MEDS ORDERED: MIDODRINE 5 MG TAB PO PRN (14:50)
--- NOTE | 2023-08-26 14:52 | P.HPIM ---
History of Present Illness H&P Date: 08/26/23 This is an 88-year-old male with medical history significant for dementia, osteoarthritis, neurogenic bladder who undergo straight catheterization and has for the last 20 years. Patient states that he was able to straight cath himself yesterday evening but noted that his urine was dark in color and felt like he had a urinary tract infection so he came into the ER for evaluation. Per family they also report that the patient has been complaining of dizziness and nausea. He denies any fever chills denies any abdominal discomfort denies any nausea vomiting or diarrhea and he has no abdominal tenderness on examination. White blood blood cell count on admission is normal at 8.3, BUN of 39, creatinine of 1.20, lactic acid is normal. Patient's urinalysis was not overly suspicious for a UTI negative for nitrates large leukocyte esterase rare bacteria. Pelvis CT was completed on admission showing no acute inflammatory or obstructive process in the abdomen or pelvis, there is enlarged prostate gland as above the bladder is decompressed and not well-evaluated nevertheless a thickened lobulated appearance of the bladder wall could be due to incomplete distention and bladder wall hypertrophy with superimposed cystitis also possible. There is colonic diverticula without signs of inflammation to suggest diverticulitis. Patient has degenerative changes of the SI joints and hips. 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 [facility] staff was unable to pass a Quintanilla catheter and urology was consulted. Dr. Heard evaluated the patient at the bedside this morning felt there was a urethral stricture and/or false passage and due to the urinary retention a 3 Mauritian spiral filiform was passed into the bladder and was dilated this will remain in place for the next 24 to 48 hours for auto dilation and after that urology will place a coud catheter. Patient has a urine culture pending has been placed on empiric antibiotic coverage with IV Unasyn. REVIEW OF SYSTEMS: CONSTITUTIONAL: No fever, no malaise, no fatigue. HEENT: No recent visual problems or hearing problems. Denied any sore throat. CARDIOVASCULAR: No chest pain, orthopnea, PND, no palpitations, no syncope. PULMONARY: No shortness of breath, no cough, no hemoptysis. GASTROINTESTINAL: No diarrhea, no nausea, no vomiting, no abdominal pain. NEUROLOGICAL: No headaches, no weakness, no numbness. HEMATOLOGICAL: Denies any bleeding or petechiae. GENITOURINARY: Denies any burning micturition, frequency, or urgency. MUSCULOSKELETAL/RHEUMATOLOGICAL: Denies any joint pain, swelling, or any muscle pain. ENDOCRINE: Denies any polyuria or polydipsia. The rest of the 14-point review of systems is negative. PHYSICAL EXAMINATION: GENERAL: The patient is alert and oriented x3, not in any acute distress. Well developed, well nourished. HEENT: Pupils are round and equally reacting to light. EOMI. No scleral icterus. No conjunctival pallor. Normocephalic, atraumatic. No pharyngeal erythema. No thyromegaly. CARDIOVASCULAR: S1 and S2 present. No murmurs, rubs, or gallops. PULMONARY: Chest is clear to auscultation, no wheezing or crackles. ABDOMEN: Soft, nontender, nondistended, normoactive bowel sounds. No palpable organomegaly. MUSCULOSKELETAL: No joint swelling or deformity. EXTREMITIES: No cyanosis, clubbing, or pedal edema. NEUROLOGICAL: Gross neurological examination did not reveal any focal deficits. SKIN: No rashes. Assessment and plan Urinary retention with history of neurogenic bladder urology has placed a filiform for auto dilation will leave in place for the next 24 to 48 hours and after that it will be removed and a coud catheter will be placed Abnormal urinalysis not suspicious for urinary tract infection patient will remain on IV antibiotic coverage empirically pending urine culture History of dementia likely vascular maintained on Aricept History of frequent urinary tract infections History of osteoarthritis History of hypertension currently normotensive was on lisinopril in the past, pt is on midodrine for BP less than 135 systolic Hx of hyperlipidemia maintained on statin therapy GI prophylaxis Protonix DVT prophylaxis Subcu heparin Full Code The impression and plan of care has been dictated by [place] Nurse Practitioner as directed. Dr. Palmer MD I have performed a history and physical examination and medical decision making of this patient, discussed the same with the dictator, and agree with the dictators assessment and plan as written, documented as a scribe. Based on total visit time, I have performed more than 50% of this visit. Past Medical History Past Medical History: Dementia, Osteoarthritis (OA), Pneumonia, Syncope Additional Past Medical History / Comment(s): SEE DR GROSS'S H&P. HYPOGLYCEMIA, SELF CATHETERIZATION, leaky heart valve, COVID Apr 2020, constipation, frequent UTI's History of Any Multi-Drug Resistant Organisms: None Reported Past Surgical History: Ear Surgery, Hernia Repair, Tonsillectomy Additional Past Surgical History / Comment(s): shi cataracts, mastoid surgery age 9 Past Anesthesia/Blood Transfusion Reactions: No Reported Reaction Past Psychological History: Anxiety Additional Psychological History / Comment(s): dementia Smoking Status: Never smoker Past Alcohol Use History: Rare Past Drug Use History: None Reported - Past Family History Mother Family Medical History: Cancer Father Family Medical History: Cancer Medications and Allergies Home Medications Medication Instructions Recorded Confirmed Type Atorvastatin [Lipitor] 20 mg PO HS 02/17/18 08/25/23 History Donepezil [Aricept] 20 mg PO DAILY 03/01/22 08/25/23 History Sertraline [Zoloft] 100 mg PO HS 03/01/22 08/25/23 History Cetirizine HCl [Zyrtec] 10 mg PO DAILY 08/25/23 08/25/23 History Midodrine HCl [ProAmantine] 2.5 mg PO TID PRN 08/25/23 08/25/23 History Vitamin C(Unknown Dose) 1 tab PO DAILY 08/25/23 08/25/23 History Vitamin D3(Unknown Dose) 1 tab PO DAILY 08/25/23 08/25/23 History Allergies Allergy/AdvReac Type Severity Reaction Status Date / Time No Known Allergies Allergy Verified 08/25/23 20:28 Physical Exam Vitals: Vital Signs Temp Pulse Resp BP Pulse Ox 08/26/23 05:23 98.4 F 61 18 120/72 98 08/25/23 20:45 97.9 F 65 16 122/76 95 08/25/23 16:40 97.8 F 55 L 18 135/86 96 Intake and Output 08/25/23 08/26/23 08/26/23 22:59 06:59 14:59 Output Total 250 Balance -250 Output: Urine 250 Straight 250 Other: Weight 71.668 kg Results CBC & Chem 7: 08/26/23 07:54 08/26/23 07:54 Labs: Abnormal Lab Results - Last 24 Hours (Table) 08/25/23 08/25/23 08/26/23 Range/Units 17:20 17:20 07:54 RBC 4.02 L (4.30-5.90) m/uL Hgb 12.4 L (13.0-17.5) gm/dL Hct 37.3 L (39.0-53.0) % Chloride (98-107) mmol/L BUN 39 H (9-20) mg/dL Glucose 149 H (74-99) mg/dL Total Protein (6.3-8.2) g/dL Albumin (3.5-5.0) g/dL Urine Protein Trace H (Negative) Ur Leukocyte Esterase Large H (Negative) Urine WBC 154 H (0-5) /hpf Urine Bacteria Rare H (None) /hpf Urine Mucus Rare H (None) /hpf 08/26/23 Range/Units 07:54 RBC (4.30-5.90) m/uL Hgb (13.0-17.5) gm/dL Hct (39.0-53.0) % Chloride 111 H (98-107) mmol/L BUN 28 H (9-20) mg/dL Glucose (74-99) mg/dL Total Protein 5.5 L (6.3-8.2) g/dL Albumin 3.0 L (3.5-5.0) g/dL Urine Protein (Negative) Ur Leukocyte Esterase (Negative) Urine WBC (0-5) /hpf Urine Bacteria (None) /hpf Urine Mucus (None) /hpf Assessment and Plan Time with Patient: Less than 30
--- NOTE | 2023-08-26 20:43 | P.PCN ---
Date of Procedure: 08/26/23 Preoperative Diagnosis: urinary retention Postoperative Diagnosis: same Procedure(s) Performed: catheter placement Indications for Procedure: Patient had a 12 Fr followed placed by Dr Heard, follower fell out this urology was contacted back Description of Procedure: Patient penis was prepped, initially I attempted to place a 12 fr coude catheter, but resistance was met at the prostate and I was not able to advance the catheter. At this point I switched to 12 fr silicone catheter, I was able to navigate catheter past the prostate and into the bladder with return of clear urine, Balloon was inflated to 10 mL. Patient tolerated procedure well. Will plan on leaving catheter in for one week.
[2023-08-26] MEDS: ATORVASTATIN 20 MG TAB PO SCH (20:57)
[2023-08-26] MEDS: HEPARIN SODIUM,PORCINE 5,000 UNIT/ML 1 ML VIAL SQ SCH (20:57)
[2023-08-26] MEDS: SERTRALINE 100 MG TAB PO SCH (20:57)
[2023-08-26 21:19] LABS: Glucose,Whole Blood 83 mg/dL (70-110)
--- NOTE | 2023-08-27 07:47 | P.PN ---
Subjective Progress Note Date: 08/27/23 The patient is in the hospital with a urinary tract infection, failed outpatient therapy. He has a neurogenic bladder on chronic intermittent catheterization. The nursing staff was unable place a catheter. I did so with difficulty but it fell out Dr. lopez replaced it. He feels better this morning. Objective - Vital Signs Vital signs: Vital Signs Temp 97.9 F 08/27/23 02:00 Pulse 56 L 08/27/23 02:00 Resp 16 08/27/23 02:00 BP 155/75 08/27/23 02:00 Pulse Ox 97 08/27/23 02:00 FiO2 Intake & Output 08/26/23 08/27/23 08/27/23 18:59 06:59 18:59 Intake Total 590 Output Total 1500 1500 Balance -1500 -910 Weight 71.668 kg Intake: Oral 590 Output: Urine 1500 1500 Straight 1000 Uretheral (Quintanilla) 500 Other: Voiding Method Indwelling Catheter Indwelling Catheter - Labs CBC & Chem 7: 08/26/23 07:54 08/26/23 07:54 Labs: Abnormal Lab Results - Last 24 Hours (Table) 08/26/23 08/26/23 Range/Units 07:54 07:54 RBC 4.02 L (4.30-5.90) m/uL Hgb 12.4 L (13.0-17.5) gm/dL Hct 37.3 L (39.0-53.0) % Chloride 111 H (98-107) mmol/L BUN 28 H (9-20) mg/dL Total Protein 5.5 L (6.3-8.2) g/dL Albumin 3.0 L (3.5-5.0) g/dL Assessment and Plan Assessment: Impression: Urinary tract infection with sepsis neurogenic bladder, urethral stricture, Recommendations: We will leave indwelling catheter for a week or 2 to allow the stricture to auto dilate. He can resume his intermittent catheterization after he goes home.
[2023-08-27] MEDS: LORATADINE 10 MG TAB PO SCH (08:20)
[2023-08-27] MEDS: DONEPEZIL 10 MG TAB PO SCH (08:20)
[2023-08-27 09:12] LABS: BUN/Creat Ratio 17.27 Ratio (12.00-20.00); Calcium 8.7 mg/dL (8.7-10.3); Chloride 111 mmol/L (96-109); Glucose 84 mg/dL (70-110); Potassium 4.6 mmol/L (3.5-5.5); Sodium 145 mmol/L (135-145)
--- NOTE | 2023-08-27 16:45 | P.PN ---
Subjective Progress Note Date: 08/27/23 88-year-old male with medical history significant for dementia, osteoarthritis, neurogenic bladder who undergo straight catheterization and has for the last 20 years. Patient states that he was able to straight cath himself yesterday evening but noted that his urine was dark in color and felt like he had a urinary tract infection so he came into the ER for evaluation. Per family they also report that the patient has been complaining of dizziness and nausea. He denies any fever chills denies any abdominal discomfort denies any nausea vomiting or diarrhea and he has no abdominal tenderness on examination. White blood blood cell count on admission is normal at 8.3, BUN of 39, creatinine of 1.20, lactic acid is normal. Patient's urinalysis was not overly suspicious for a UTI negative for nitrates large leukocyte esterase rare bacteria. Pelvis CT was completed on admission showing no acute inflammatory or obstructive process in the abdomen or pelvis, there is enlarged prostate gland as above the bladder is decompressed and not well-evaluated nevertheless a thickened lobulated appearance of the bladder wall could be due to incomplete distention and bladder wall hypertrophy with superimposed cystitis also possible. There is colonic diverticula without signs of inflammation to suggest diverticulitis. Patient has degenerative changes of the SI joints and hips. 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 Nursing staff was unable to pass a Quintanilla catheter and urology was consulted. Dr. Heard evaluated the patient at the bedside this morning felt there was a urethral stricture and/or false passage and due to the urinary retention a 3 Samoan spiral filiform was passed into the bladder and was dilated this will remain in place for the next 24 to 48 hours for auto dilation and after that urology will place a coud catheter. Patient has a urine culture pending has been placed on empiric antibiotic coverage with IV Unasyn. Objective - Vital Signs Vital signs: Vital Signs Temp 97.6 F 08/27/23 08:00 Pulse 54 L 08/27/23 08:00 Resp 20 08/27/23 08:00 BP 178/93 08/27/23 08:00 Pulse Ox 96 08/27/23 08:00 FiO2 Intake & Output 08/26/23 08/27/23 08/27/23 18:59 06:59 18:59 Intake Total 590 Output Total 1500 1500 Balance -1500 -910 Weight 71.668 kg Intake: Oral 590 Output: Urine 1500 1500 Straight 1000 Uretheral (Quintanilla) 500 Other: Voiding Method Indwelling Catheter Indwelling Catheter Indwelling Catheter - Exam HEENT: Pupils are round and equally reacting to light. EOMI. No scleral icterus. No conjunctival pallor. Normocephalic, atraumatic. No pharyngeal erythema. No thyromegaly. CARDIOVASCULAR: S1 and S2 present. No murmurs, rubs, or gallops. PULMONARY: Chest is clear to auscultation, no wheezing or crackles. ABDOMEN: Soft, nontender, nondistended, normoactive bowel sounds. No palpable organomegaly. MUSCULOSKELETAL: No joint swelling or deformity. EXTREMITIES: No cyanosis, clubbing, or pedal edema. NEUROLOGICAL: Gross neurological examination did not reveal any focal deficits. SKIN: No rashes. - Labs CBC & Chem 7: 08/26/23 07:54 08/27/23 05:54 Labs: Abnormal Lab Results - Last 24 Hours (Table) 08/27/23 Range/Units 05:54 Chloride 111 H (96-109) mmol/L Microbiology - Last 24 Hours (Table) 08/25/23 17:20 Urine Culture - Preliminary Urine,Voided Group D Enterococcus Assessment and Plan Assessment: Urinary retention with history of neurogenic bladder urology has placed a filiform for auto dilation will leave in place for the next 24 to 48 hours and after that it will be removed and a coud catheter will be placed Abnormal urinalysis not suspicious for urinary tract infection patient will remain on IV antibiotic coverage empirically pending urine culture History of dementia likely vascular maintained on Aricept History of frequent urinary tract infections History of osteoarthritis History of hypertension currently normotensive was on lisinopril in the past, pt is on midodrine for BP less than 135 systolic Hx of hyperlipidemia maintained on statin therapy GI prophylaxis Protonix DVT prophylaxis Subcu heparin Full Code
[2023-08-27] MEDS: AMPICILLIN-SULBACTAM 3 GM in SODIUM CHLORIDE 0.9% 100 ML IVPB SCH (22:09)
--- NOTE | 2023-08-28 08:51 | P.CONS ---
History of Present Illness - Reason for Consult Consult date: 08/27/23 UTI recommendation regarding antibiotics Requesting physician: Greg Bryan - Chief Complaint Weakness confusion x few days - History of Present Illness Patient is a 88-year-old male with a past medical history significant for dementia osteoarthritis pneumonia syncope patient did have urinary bladder obstruction requiring self-catheterization presenting to the hospital for evaluation of dizziness confusion and nausea symptom has been going on for a day or 2 before the patient was brought to the hospital patient denies any fever or any chills and no fever have been called into this hospital stay patient was not tachycardic hypotensive or hypoxic he did have white count of 8.3 creatinine has been normal BUN was mildly elevated liver enzymes are normal he did have a positive UA with large leukocyte Estrace more than 154 WBC patient did have abdominal pelvis CT enlarged prostate bladder is decompressed colonic diverticula patient was started on Unasyn Quintanilla catheter has been placed urine is now growing Enterococcus infectious disease was consulted for further management of antibiotic therapy, patient currently denies any headache or URI symptoms no chest pain shortness of breath or cough denies any nausea no vomiting no abdominal pain and no diarrhea Review of Systems Positive point and negatives has been mentioned in the HPI, complete review of systems was performed and all other systems are negative Past Medical History Past Medical History: Dementia, Osteoarthritis (OA), Pneumonia, Syncope Additional Past Medical History / Comment(s): HYPOGLYCEMIA, SELF CATHETERIZATION, leaky heart valve, COVID Apr 2020, constipation, frequent UTI's History of Any Multi-Drug Resistant Organisms: None Reported Past Surgical History: Ear Surgery, Hernia Repair, Tonsillectomy Additional Past Surgical History / Comment(s): shi cataracts, mastoid surgery age 9 Past Anesthesia/Blood Transfusion Reactions: No Reported Reaction Past Psychological History: Anxiety Additional Psychological History / Comment(s): dementia Smoking Status: Never smoker Past Alcohol Use History: Rare Past Drug Use History: None Reported - Past Family History Mother Family Medical History: Dementia Additional Family Medical History / Comment(s): Alzheimers Father Family Medical History: Cancer Additional Family Medical History / Comment(s): Colon cancer Medications and Allergies Home Medications Medication Instructions Recorded Confirmed Type Atorvastatin [Lipitor] 20 mg PO HS 02/17/18 08/25/23 History Donepezil [Aricept] 20 mg PO DAILY 03/01/22 08/25/23 History Sertraline [Zoloft] 100 mg PO HS 03/01/22 08/25/23 History Cetirizine HCl [Zyrtec] 10 mg PO DAILY 08/25/23 08/25/23 History Midodrine HCl [ProAmantine] 2.5 mg PO TID PRN 08/25/23 08/25/23 History Vitamin C(Unknown Dose) 1 tab PO DAILY 08/25/23 08/25/23 History Vitamin D3(Unknown Dose) 1 tab PO DAILY 08/25/23 08/25/23 History Acetaminophen Tab [Tylenol] 650 mg PO Q6HR PRN tab 08/30/23 Rx Amoxic-Pot Clav 875-125Mg 1 tab PO Q12HR 5 Days #10 tab 08/30/23 Rx [Augmentin 875-125] Allergies Allergy/AdvReac Type Severity Reaction Status Date / Time No Known Allergies Allergy Verified 08/25/23 20:28 Physical Exam Vitals: Vital Signs Temp Pulse Pulse Resp BP BP Pulse Ox 08/27/23 08:00 97.6 F 54 L 20 178/93 96 08/27/23 02:00 97.9 F 56 L 16 155/75 97 08/26/23 20:00 98.1 F 51 L 16 180/77 97 08/26/23 18:12 98.4 F 51 L 18 147/74 95 08/26/23 16:49 97.2 F L 56 L 19 160/86 96 08/26/23 14:50 96.9 F L 54 L 16 160/95 96 Intake and Output 08/26/23 08/27/23 08/27/23 22:59 06:59 14:59 Intake Total 590 Output Total 1500 1500 Balance -1500 -910 Intake: Oral 590 Output: Urine 1500 1500 Straight 1000 Uretheral (Quintanilla) 500 Other: Voiding Method Indwelling Catheter Indwelling Catheter Weight 71.668 kg GENERAL DESCRIPTION: Elderly male lying in bed, no distress. No tachypnea or accessory muscle of respiration use. HEENT: Shows Pallor , no scleral icterus. Oral mucous membrane is dry. No pharyngeal erythema or thrush NECK: Trachea central, no thyromegaly. LUNGS: Unlabored breathing. Clear to auscultation anteriorly. No wheeze or crab fisherman ckle. HEART: S1, S2, regular rate and rhythm. No loud murmur ABDOMEN: Soft, no tenderness , guarding or rigidity, no organomegaly EXTREMITIES: No edema of feet. SKIN: No rash, no masses palpable. NEUROLOGICAL: The patient is awake, alert,, mood and affect normal. Results CBC & Chem 7: 08/29/23 06:10 08/30/23 04:39 Labs: Abnormal Lab Results - Last 24 Hours (Table) 08/27/23 Range/Units 05:54 Chloride 111 H (96-109) mmol/L Microbiology - Last 24 Hours (Table) 08/25/23 17:20 Urine Culture - Preliminary Urine,Voided Group D Enterococcus Assessment and Plan (1) Urinary tract infection Status: Acute Code(s): N39.0 - URINARY TRACT INFECTION, SITE NOT SPECIFIED SNOMED Code(s): 18294404 Plan: 1patient presented to the hospital with weakness dizziness and this patient who did have urinary outflow obstruction requiring self-catheterization did have a positive UA concerning for UTI with urine now showing Enterococcus with sensitivities pending. 2patient to continue with the Unasyn while waiting for the culture to finalize hopefully penicillin sensitive pathogen and will be able to finish therapy with oral antibiotic. We will follow on clinical condition and cultures to further adjust medication if needed Thank you for this consultation we will follow the patient along with you Dictation was produced using [employer] dictation software. please excuse any grammatical, word or spelling errors. Time with Patient: Greater than 30
[2023-08-28 09:54] LABS: Basophils # (A) 0.07 X 10*3/uL (0.00-0.10); Eosinophils % (A) 2.9 %; HCT 36.1 % (39.6-50.0); HGB 11.8 g/dL (13.0-17.0); Lymphocytes # (A) 1.47 X 10*3/uL (0.90-5.00); MCH 29.5 pg (27.0-32.0); MCHC 32.7 g/dL (32.0-37.0); MCV 90.3 FL (80.0-97.0); Monocytes # (A) 0.63 X 10*3/uL (0.20-1.00); NRBC Per 100 WBC 0 X 10*3/uL (0.00-0.01); Neutrophils # (A) 4.58 X 10*3/uL (1.80-7.70); Neutrophils % (A) 65.5 %; Platelet Count 193 X 10*3/uL (140-440); RDW 13.3 % (11.5-14.5); WBC 6.99 X 10*3/uL (4.50-10.00)
[2023-08-28 10:22] LABS: BUN/Creat Ratio 13.45 Ratio (12.00-20.00); Blood Urea Nitrogen 14.8 mg/dL (9.0-27.0); Calcium 8.5 mg/dL (8.7-10.3); Carbon Dioxide 23.2 mmol/L (21.6-31.8); Chloride 111 mmol/L (96-109); Glucose 84 mg/dL (70-110); Potassium 4.1 mmol/L (3.5-5.5); Sodium 142 mmol/L (135-145)
--- NOTE | 2023-08-28 16:53 | P.PN ---
Subjective Progress Note Date: 08/28/23 88-year-old male with medical history significant for dementia, osteoarthritis, neurogenic bladder who undergo straight catheterization and has for the last 20 years. Patient states that he was able to straight cath himself yesterday evening but noted that his urine was dark in color and felt like he had a urinary tract infection so he came into the ER for evaluation. Per family they also report that the patient has been complaining of dizziness and nausea. He denies any fever chills denies any abdominal discomfort denies any nausea vomiting or diarrhea and he has no abdominal tenderness on examination. White blood blood cell count on admission is normal at 8.3, BUN of 39, creatinine of 1.20, lactic acid is normal. Patient's urinalysis was not overly suspicious for a UTI negative for nitrates large leukocyte esterase rare bacteria. Pelvis CT was completed on admission showing no acute inflammatory or obstructive process in the abdomen or pelvis, there is enlarged prostate gland as above the bladder is decompressed and not well-evaluated nevertheless a thickened lobulated appearance of the bladder wall could be due to incomplete distention and bladder wall hypertrophy with superimposed cystitis also possible. There is colonic diverticula without signs of inflammation to suggest diverticulitis. Patient has degenerative changes of the SI joints and hips. 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 Nursing staff was unable to pass a Quintanilla catheter and urology was consulted. Dr. Heard evaluated the patient at the bedside this morning felt there was a urethral stricture and/or false passage and due to the urinary retention a 3 Ethiopian spiral filiform was passed into the bladder and was dilated this will remain in place for the next 24 to 48 hours for auto dilation and after that urology will place a coud catheter. Patient has a urine culture pending has been placed on empiric antibiotic coverage with IV Unasyn. 1patient presented to the hospital with weakness dizziness and this patient who did have urinary outflow obstruction requiring self-catheterization did have a positive UA concerning for UTI with urine now showing Enterococcus with sensitivities pending. 2patient to continue with the Unasyn while waiting for the culture to finalize hopefully penicillin sensitive pathogen and will be able to finish therapy with oral antibiotic. Objective - Vital Signs Vital signs: Vital Signs Temp 97.8 F 08/28/23 08:00 Pulse 53 L 08/28/23 08:00 Resp 17 08/28/23 08:00 BP 160/84 08/28/23 08:00 Pulse Ox 97 08/28/23 08:00 FiO2 Intake & Output 08/27/23 08/28/23 08/28/23 18:59 06:59 18:59 Intake Total 1660 2150 Output Total 900 1200 750 Balance 760 950 -750 Intake: Intake, IV Titration 1560 1560 Amount Sodium Chloride 0.9% 1, 1560 1560 000 ml @ 130 mls/hr IV . [facility] Rx#:[id number] Oral 100 590 Output: Urine 900 1200 750 Other: Voiding Method Indwelling Catheter Indwelling Catheter Indwelling Catheter # Bowel Movements 0 - Exam HEENT: Pupils are round and equally reacting to light. EOMI. No scleral icterus. No conjunctival pallor. Normocephalic, atraumatic. No pharyngeal erythema. No thyromegaly. CARDIOVASCULAR: S1 and S2 present. No murmurs, rubs, or gallops. PULMONARY: Chest is clear to auscultation, no wheezing or crackles. ABDOMEN: Soft, nontender, nondistended, normoactive bowel sounds. No palpable organomegaly. MUSCULOSKELETAL: No joint swelling or deformity. EXTREMITIES: No cyanosis, clubbing, or pedal edema. NEUROLOGICAL: Gross neurological examination did not reveal any focal deficits. SKIN: No rashes. - Labs CBC & Chem 7: 08/28/23 06:47 08/28/23 06:47 Labs: Abnormal Lab Results - Last 24 Hours (Table) 08/28/23 08/28/23 Range/Units 06:47 06:47 RBC 4.00 L (4.40-5.60) X 10*6/uL Hgb 11.8 L (13.0-17.0) g/dL Hct 36.1 L (39.6-50.0) % Chloride 111 H (96-109) mmol/L Calcium 8.5 L (8.7-10.3) mg/dL Microbiology - Last 24 Hours (Table) 08/25/23 17:20 Urine Culture - Preliminary Urine,Voided Group D Enterococcus Assessment and Plan Assessment: Urinary retention with history of neurogenic bladder urology has placed a filiform for auto dilation will leave in place for the next 24 to 48 hours and after that it will be removed and a coud catheter will be placed Abnormal urinalysis not suspicious for urinary tract infection patient will remain on IV antibiotic coverage empirically pending urine culture History of dementia likely vascular maintained on Aricept History of frequent urinary tract infections History of osteoarthritis History of hypertension currently normotensive was on lisinopril in the past, pt is on midodrine for BP less than 135 systolic Hx of hyperlipidemia maintained on statin therapy GI prophylaxis Protonix DVT prophylaxis Subcu heparin Full Code
--- NOTE | 2023-08-28 21:54 | P.PN ---
Subjective Progress Note Date: 08/28/23 Principal diagnosis: Reason for follow-up is Enterococcus urinary tract infection Patient is a 88-year-old male with a past medical history significant for dementia osteoarthritis pneumonia syncope patient did have urinary bladder obstruction requiring self-catheterization presenting to the hospital for evaluation of dizziness confusion and nausea, patient has been diagnosed with a UTI prompting this infectious disease consultation. On today's visit that is 08/28/2023,the patient remains to be afebrile, patient is on room air not requiring supplemental oxygen and denies any shortness of breath no chest pain or cough.Patient denies having any nausea or vomiting, no abdominal pain and no diarrhea has been reported . Patient did have white count 6.99, creatinine is 1.1 urine is growing Enterococcus faecalis sensitive to ampicillin Objective - Vital Signs Vital signs: Vital Signs Temp 98.4 F 08/28/23 19:46 Pulse 55 L 08/28/23 19:46 Resp 16 08/28/23 19:46 BP 169/84 08/28/23 19:46 Pulse Ox 94 L 08/28/23 19:46 FiO2 Intake & Output 08/28/23 08/28/23 08/29/23 06:59 18:59 06:59 Intake Total 2150 Output Total 1200 1950 Balance 950 -1950 Intake: Intake, IV Titration 1560 Amount Sodium Chloride 0.9% 1, 1560 000 ml @ 130 mls/hr IV . Q7H42M [facility] Rx#:[id number] Oral 590 Output: Urine 1200 1950 Other: Voiding Method Indwelling Catheter Indwelling Catheter - Exam GENERAL DESCRIPTION: An elderly male lying in bed in no distress RESPIRATORY SYSTEM: Unlabored breathing , decreased breath sounds at bases HEART: S1 S2 regular rate and rhythm , ABDOMEN: Soft , no tenderness EXTREMITIES: No edema feet - Labs CBC & Chem 7: 08/28/23 06:47 08/28/23 06:47 Labs: Abnormal Lab Results - Last 24 Hours (Table) 08/28/23 08/28/23 Range/Units 06:47 06:47 RBC 4.00 L (4.40-5.60) X 10*6/uL Hgb 11.8 L (13.0-17.0) g/dL Hct 36.1 L (39.6-50.0) % Chloride 111 H (96-109) mmol/L Calcium 8.5 L (8.7-10.3) mg/dL Microbiology - Last 24 Hours (Table) 08/25/23 17:20 Urine Culture - Final Urine,Voided Enterococcus faecalis Assessment and Plan (1) Urinary tract infection Current Visit: Yes Status: Acute Code(s): N39.0 - URINARY TRACT INFECTION, SITE NOT SPECIFIED SNOMED Code(s): 82178104 Plan: 1patient presented to the hospital with weakness dizziness and this patient who did have urinary outflow obstruction requiring self-catheterization did have a positive UA concerning for UTI with urine now showing Enterococcus which is sensitive to ampicillin 2patient to continue with the Unasyn while inpatient with the plan to finish therapy with oral Augmentin Dictation was produced using [employer] dictation software. please excuse any grammatical, word or spelling errors. Time with Patient: Less than 30
[2023-08-29 09:14] LABS: Basophils # (A) 0.07 X 10*3/uL (0.00-0.10); Eosinophils # (A) 0.25 X 10*3/uL (0.04-0.35); Eosinophils % (A) 3.6 %; HCT 36.8 % (39.6-50.0); HGB 11.9 g/dL (13.0-17.0); Lymphocytes # (A) 1.44 X 10*3/uL (0.90-5.00); Lymphocytes % (A) 20.8 %; MCH 29.2 pg (27.0-32.0); MCHC 32.3 g/dL (32.0-37.0); MCV 90.4 FL (80.0-97.0); Mean Platelet Volume 11.9 FL (9.5-12.2); Monocytes # (A) 0.61 X 10*3/uL (0.20-1.00); Monocytes % (A) 8.8 %; NRBC Per 100 WBC 0 X 10*3/uL (0.00-0.01); Neutrophils # (A) 4.53 X 10*3/uL (1.80-7.70); Neutrophils % (A) 65.4 %; Platelet Count 189 X 10*3/uL (140-440); RBC 4.07 X 10*6/uL (4.40-5.60); RDW 13.2 % (11.5-14.5); WBC 6.93 X 10*3/uL (4.50-10.00)
[2023-08-29 09:30] LABS: BUN/Creat Ratio 10.17 Ratio (12.00-20.00); Blood Urea Nitrogen 12.2 mg/dL (9.0-27.0); Calcium 8.4 mg/dL (8.7-10.3); Carbon Dioxide 24.4 mmol/L (21.6-31.8); Chloride 110 mmol/L (96-109); Glucose 89 mg/dL (70-110); Potassium 4.2 mmol/L (3.5-5.5); Sodium 142 mmol/L (135-145)
--- NOTE | 2023-08-29 12:23 | P.PN ---
Subjective Progress Note Date: 08/29/23 Principal diagnosis: Reason for follow-up is Enterococcus urinary tract infection Patient is a 88-year-old male with a past medical history significant for dementia osteoarthritis pneumonia syncope patient did have urinary bladder obstruction requiring self-catheterization presenting to the hospital for evaluation of dizziness confusion and nausea, patient has been diagnosed with a UTI prompting this infectious disease consultation. On today's visit that is 08/29/2023, the patient continues to be afebrile, the patient is on room air and breathing comfortably, the Pt denies having any chest pain or cough, the patient denies having any abdominal pain no vomiting or any diarrhea has been reported by the nursing staff, no new symptoms. White count is 6.93, creatinine is 1.2 Objective - Vital Signs Vital signs: Vital Signs Temp 97.7 F 08/29/23 12:19 Pulse 53 L 08/29/23 12:19 Resp 18 08/29/23 12:19 BP 151/91 08/29/23 12:19 Pulse Ox 96 08/29/23 12:19 FiO2 Intake & Output 08/28/23 08/29/23 08/29/23 18:59 06:59 18:59 Intake Total 240 Output Total 1950 2200 800 Balance -1949 0 -560 Intake: Oral 240 Output: Urine 19490 800 Other: Voiding Method Indwelling Catheter Indwelling Catheter Indwelling Catheter - Exam GENERAL DESCRIPTION: An elderly male lying in bed in no distress RESPIRATORY SYSTEM: Unlabored breathing , decreased breath sounds at bases HEART: S1 S2 regular rate and rhythm , ABDOMEN: Soft , no tenderness EXTREMITIES: No edema feet - Labs CBC & Chem 7: 08/29/23 06:10 08/29/23 06:10 Labs: Abnormal Lab Results - Last 24 Hours (Table) 08/29/23 08/29/23 Range/Units 06:10 06:10 RBC 4.07 L (4.40-5.60) X 10*6/uL Hgb 11.9 L (13.0-17.0) g/dL Hct 36.8 L (39.6-50.0) % Chloride 110 H (96-109) mmol/L Est GFR (CKD-EPI) 58 L (>=60) BUN/Creatinine Ratio 10.17 L (12.00-20.00) Ratio Calcium 8.4 L (8.7-10.3) mg/dL Microbiology - Last 24 Hours (Table) 08/25/23 17:20 Urine Culture - Final Urine,Voided Enterococcus faecalis Assessment and Plan (1) Urinary tract infection Current Visit: Yes Status: Acute Code(s): N39.0 - URINARY TRACT INFECTION, SITE NOT SPECIFIED SNOMED Code(s): 64767349 Plan: 1patient presented to the hospital with weakness dizziness and this patient who did have urinary outflow obstruction requiring self-catheterization did have a positive UA concerning for UTI with urine now showing Enterococcus which is sensitive to ampicillin 2patient slowly clinically improving and will continue with the Unasyn while inpatient with the plan to finish therapy with oral Augmentin x 5 days Dictation was produced using [employer] dictation software. please excuse any grammatical, word or spelling errors. Time with Patient: Less than 30
--- NOTE | 2023-08-29 17:23 | P.PN ---
Subjective Progress Note Date: 08/29/23 88-year-old male with medical history significant for dementia, osteoarthritis, neurogenic bladder who undergo straight catheterization and has for the last 20 years. Patient states that he was able to straight cath himself yesterday evening but noted that his urine was dark in color and felt like he had a urinary tract infection so he came into the ER for evaluation. Per family they also report that the patient has been complaining of dizziness and nausea. He denies any fever chills denies any abdominal discomfort denies any nausea vomiting or diarrhea and he has no abdominal tenderness on examination. White blood blood cell count on admission is normal at 8.3, BUN of 39, creatinine of 1.20, lactic acid is normal. Patient's urinalysis was not overly suspicious for a UTI negative for nitrates large leukocyte esterase rare bacteria. Pelvis CT was completed on admission showing no acute inflammatory or obstructive process in the abdomen or pelvis, there is enlarged prostate gland as above the bladder is decompressed and not well-evaluated nevertheless a thickened lobulated appearance of the bladder wall could be due to incomplete distention and bladder wall hypertrophy with superimposed cystitis also possible. There is colonic diverticula without signs of inflammation to suggest diverticulitis. Patient has degenerative changes of the SI joints and hips. 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 Nursing staff was unable to pass a Quintanilla catheter and urology was consulted. Dr. Heard evaluated the patient at the bedside this morning felt there was a urethral stricture and/or false passage and due to the urinary retention a 3 Djiboutian spiral filiform was passed into the bladder and was dilated this will remain in place for the next 24 to 48 hours for auto dilation and after that urology will place a coud catheter. Patient has a urine culture pending has been placed on empiric antibiotic coverage with IV Unasyn. 1patient presented to the hospital with weakness dizziness and this patient who did have urinary outflow obstruction requiring self-catheterization did have a positive UA concerning for UTI with urine now showing Enterococcus with sensitivities pending. 2patient to continue with the Unasyn while waiting for the culture to finalize hopefully penicillin sensitive pathogen and will be able to finish therapy with oral antibiotic. 08/29/2023 - patient is seen and evaluated in room at bedside and discussed with nursing staff, the patient is on room air and breathing comfortably, the Pt denies having any chest pain or cough, the patient denies having any abdominal pain no vomiting or any diarrhea White count is 6.93, creatinine is 1.2 1patient presented to the hospital with weakness dizziness and this patient who did have urinary outflow obstruction requiring self-catheterization did have a positive UA concerning for UTI with urine now showing Enterococcus which is sensitive to ampicillin 2patient slowly clinically improving and will continue with the Unasyn while inpatient with the plan to finish therapy with oral Augmentin x 5 days --Patient has been evaluated by PT/OT and is recommended skilled rehab; case management on board Objective - Vital Signs Vital signs: Vital Signs Temp 97.7 F 08/29/23 12:19 Pulse 53 L 08/29/23 12:19 Resp 18 08/29/23 12:19 BP 151/91 08/29/23 12:19 Pulse Ox 96 08/29/23 12:19 FiO2 Intake & Output 08/28/23 08/29/23 08/29/23 18:59 06:59 18:59 Intake Total 240 Output Total 1950 2200 800 Balance -1950 -2200 -560 Intake: Oral 240 Output: Urine 1949 2200 800 Other: Voiding Method Indwelling Catheter Indwelling Catheter Indwelling Catheter - Exam HEENT: Pupils are round and equally reacting to light. EOMI. No scleral icterus. No conjunctival pallor. Normocephalic, atraumatic. No pharyngeal erythema. No thyromegaly. CARDIOVASCULAR: S1 and S2 present. No murmurs, rubs, or gallops. PULMONARY: Chest is clear to auscultation, no wheezing or crackles. ABDOMEN: Soft, nontender, nondistended, normoactive bowel sounds. No palpable organomegaly. MUSCULOSKELETAL: No joint swelling or deformity. EXTREMITIES: No cyanosis, clubbing, or pedal edema. NEUROLOGICAL: Gross neurological examination did not reveal any focal deficits. SKIN: No rashes. - Labs CBC & Chem 7: 08/29/23 06:10 08/29/23 06:10 Labs: Abnormal Lab Results - Last 24 Hours (Table) 08/29/23 08/29/23 Range/Units 06:10 06:10 RBC 4.07 L (4.40-5.60) X 10*6/uL Hgb 11.9 L (13.0-17.0) g/dL Hct 36.8 L (39.6-50.0) % Chloride 110 H (96-109) mmol/L Est GFR (CKD-EPI) 58 L (>=60) BUN/Creatinine Ratio 10.17 L (12.00-20.00) Ratio Calcium 8.4 L (8.7-10.3) mg/dL Microbiology - Last 24 Hours (Table) 08/25/23 17:20 Urine Culture - Final Urine,Voided Enterococcus faecalis Assessment and Plan Assessment: Urinary retention with history of neurogenic bladder urology has placed a filif orm for auto dilation will leave in place for the next 24 to 48 hours and after that it will be removed and a coud catheter will be placed Abnormal urinalysis not suspicious for urinary tract infection patient will remain on IV antibiotic coverage empirically pending urine culture History of dementia likely vascular maintained on Aricept History of frequent urinary tract infections History of osteoarthritis History of hypertension currently normotensive was on lisinopril in the past, pt is on midodrine for BP less than 135 systolic Hx of hyperlipidemia maintained on statin therapy GI prophylaxis Protonix DVT prophylaxis Subcu heparin Full Code
[2023-08-30 03:34] VITALS: RESP 16
[2023-08-30 07:56] VITALS: PULSE 54
[2023-08-30 08:53] LABS: BUN/Creat Ratio 11.64 Ratio (12.00-20.00); Blood Urea Nitrogen 12.8 mg/dL (9.0-27.0); Calcium 8.6 mg/dL (8.7-10.3); Carbon Dioxide 26.4 mmol/L (21.6-31.8); Chloride 110 mmol/L (96-109); Glucose 93 mg/dL (70-110); Potassium 3.9 mmol/L (3.5-5.5); Sodium 143 mmol/L (135-145)
--- NOTE | 2023-08-30 12:40 | CDI ---
Documentation Clarification Form Date: 08/30/2023 12:01:50 PM From: Elyse Wilhelm RN, CCDS Email: [email or web address] Admit Date: 08/25/2023 09:01:00 PM Patient Name: Darin Reynolds Visit Number: [id number] Discharge Date: ATTENTION: The Clinical Documentation Specialists (CDI) and [facility] Coding Staff appreciate your assistance in clarifying documentation. Please respond to the clarification below the line at the bottom and electronically sign. The CDI & [facility] Coding staff will review the response and follow-up if needed. Please note: Queries are made part of the Legal Health Record. If you have any questions, please contact the author of this message via ITS. Dr. Greg Bryan UTI is documented in the progress notes and patient undergoes straight catheterization daily for neurogenic bladder. Additional clarification regarding the etiology of the UTI is requested. History/Risk Factors: 88year old male with neurogenic bladder, UTI's, dementia and OA. Presented with confusion, dizziness and dark urine. Admitted with UTI. Clinical Indicators: 08/25 Urinalysis: cloudy, large leukocyte esterase, 154 WBC's, rare urine bacteria 08/25 Urine culture: enterococcus faecalis 08/25 Urology consult: "Urinary tract infection. Urethral stricture or false passage. Neurogenic bladder on chronic intermittent catheterization." 08/28 ID: UA concerning for UTI with urine now showing Enterococcus which is sensitive to ampicillin." Treatment: IV Unasyn 3gm x1 on 08/25; IV Unasyn 3gm Q6H -08/26; IV Unasyn 3gm Q8H 08/26-current; 1L 0.9 NS IV bolus on 08/25; insertion of 12 follower catheter Please clarify the etiology of the UTI, if known: [ ] Intermittent catheterization [ ] UTI not related to intermittent catheterization [ ] Other condition, please specify [ ] Unable to determine Dr. Little responded in the discharge summary: Abnormal urinalysis with concerns for urinary tract infection, present on admission likely secondary to straight catheterization with urine cultures finalizing Enterococcus MTDD
[2023-08-30 13:08] VITALS: BP 154/82; TEMP 97.9
--- NOTE | 2023-08-31 06:20 | P.DS ---
Providers Date of admission: 08/25/23 21:01 Expected date of discharge: 08/30/23 Attending physician: David Little Consults: 08/26/23 04:39 Consult Physician Routine Consulting Provider: Jeffrey Heard Consult Reason/Comments: inability to urinate, unable to place IDC Do you want consulting provider notified?: Yes 08/27/23 11:30 Consult Physician Routine Consulting Provider: Virgen Sanders Consult Reason/Comments: UTI/ recs on antibiotics Do you want consulting provider notified?: Yes Primary care physician: [facility] Course: Final diagnosis Urinary retention with history of neurogenic bladder status post urology having to place filiform for auto dilation and a coud catheter will be placed, suggest outpatient follow-up Abnormal urinalysis with concerns for urinary tract infection, present on admission likely secondary to straight catheterization with urine cultures finalizing Enterococcus History of dementia likely vascular maintained on Aricept History of frequent urinary tract infections secondary to self-catheterization History of osteoarthritis History of hypertension currently normotensive was on lisinopril in the past, pt is on midodrine for BP less than 135 systolic Hx of hyperlipidemia maintained on statin therapy GI prophylaxis Protonix DVT prophylaxis Subcu heparin Full Code Discharge disposition Patient is being discharged in a stable condition with guarded prognosis to home. Patient will follow-up with Janessa Dawkins in the outpatient setting upon discharge. Patient is to continue with indwelling Quintanilla catheter and outpatient follow-up with urology as scheduled. Patient will continue on a short course of antibiotics to complete the course on discharge. Total time taken is greater than 35 minutes. Hospital course This is a 88-year-old male who was recently admitted with urinary retention with history of neurogenic bladder evaluated by urology requiring dilatation and coud catheter placement. Recommend to continue with indwelling Quintanilla catheter and outpatient follow-up in the next 1 to 2 weeks. Patient will continue on her short course of oral Augmentin on discharge to complete the course for cultures growing Enterococcus. Patient with generalized weakness reports is going home and refusing rehab. Patient has been cleared by consultations. Please refer to consultation notes for further HPI. Currently no reports of chest pain, shortness of breath, or palpitations. Patient is afebrile. No reports of nausea or vomiting and patient is tolerating diet. Patient will be discharged home today. Guarded prognosis given patient's age and comorbidities Physical exam: Gen: This is a 88-year-old male who is awake, alert and oriented x 2-3 baseline, well-developed, elderly appearing HEENT: Head is atraumatic, normocephalic. Pupils equal, round. Sclerae is anicteric. NECK: Supple. No JVD. No lymphadenopathy. No thyromegaly. LUNGS: Clear to auscultation. No wheezes or rhonchi. No intercostal retractions. HEART: Regular rate and rhythm. No murmur. ABDOMEN: Soft. Bowel sounds are present. No masses. No tenderness. EXTREMITIES: No pedal edema. No calf tenderness. NEUROLOGICAL: Patient is awake, alert and oriented x2-3. Cranial nerves 2 through 12 are grossly intact. Please refer to medication reconciliation sheet for a list of medications. The impression and plan of care has been dictated by Clarice Coto, Nurse Practitioner as directed. Dr. Sidney MD I have performed a history and examination and MDM of this patient, discussed the same with the dictator, and agree with the dictator's assessment and plan as written ,documented as a scribe. Based on total visit time, I have performed more than 50% of the visit. Patient Condition at Discharge: Fair Plan - Discharge Summary New Discharge Prescriptions: New Acetaminophen Tab [Tylenol] 650 mg PO Q6HR PRN tab PRN Reason: Mild Pain Or Fever > 100.5 Amoxic-Pot Clav 875-125Mg [Augmentin 875-125] 1 tab PO Q12HR 5 Days #10 tab Continue Atorvastatin [Lipitor] 20 mg PO HS Sertraline [Zoloft] 100 mg PO HS Donepezil [Aricept] 20 mg PO DAILY Cetirizine HCl [Zyrtec] 10 mg PO DAILY Vitamin C(Unknown Dose) 1 tab PO DAILY Vitamin D3(Unknown Dose) 1 tab PO DAILY Midodrine HCl [ProAmantine] 2.5 mg PO TID PRN PRN Reason: BP less than 135/60 Discharge Medication List Atorvastatin [Lipitor] 20 mg PO HS 02/17/18 [History] Donepezil [Aricept] 20 mg PO DAILY 03/01/22 [History] Sertraline [Zoloft] 100 mg PO HS 03/01/22 [History] Cetirizine HCl [Zyrtec] 10 mg PO DAILY 08/25/23 [History] Midodrine HCl [ProAmantine] 2.5 mg PO TID PRN 08/25/23 [History] Vitamin C(Unknown Dose) 1 tab PO DAILY 08/25/23 [History] Vitamin D3(Unknown Dose) 1 tab PO DAILY 08/25/23 [History] Acetaminophen Tab [Tylenol] 650 mg PO Q6HR PRN tab 08/30/23 [Rx] Amoxic-Pot Clav 875-125Mg [Augmentin 875-125] 1 tab PO Q12HR 5 Days #10 tab 08/30/23 [Rx] Follow up Appointment(s)/Referral(s): Jeffrey Heard MD [STAFF PHYSICIAN] - 09/16/23 9:20 am (Home with Quintanilla) Janessa Dawkins NPC [REFERRING] - 09/02/23 12:30 pm Patient Instructions/Handouts: Amoxicillin/Clavulanate Potassium (By mouth), Quintanilla Catheter Placement and Care (ED), Urinary Leg Bag (GEN) Activity/Diet/Wound Care/Special Instructions: Activity limited until follow-up Follow-up with primary care provider on discharge Follow-up with urology outpatient Continue taking medications as prescribed Discharge Disposition: HOME SELF-CARE
--- NOTE | 2023-09-03 15:38 | P.PN ---
Subjective Progress Note Date: 08/30/23 Principal diagnosis: Reason for follow-up is Enterococcus urinary tract infection Patient is a 88-year-old male with a past medical history significant for dementia osteoarthritis pneumonia syncope patient did have urinary bladder obstruction requiring self-catheterization presenting to the hospital for evaluation of dizziness confusion and nausea, patient has been diagnosed with a UTI prompting this infectious disease consultation. On today's visit that is 08/30/2023, the patient continues to be afebrile, the patient is on room air and breathing comfortably, patient denies having any chest pain or cough, the patient denies having any abdominal pain no vomiting or any diarrhea has been reported by the nursing staff, patient is feeling better wants to go home White count is 6.93 as of yesterday, creatinine is 1.1 Objective - Vital Signs Vital signs: Vital Signs Temp 97.8 F 08/30/23 07:22 Pulse 54 L 08/30/23 07:22 Resp 16 08/30/23 07:22 BP 189/87 08/30/23 08:35 Pulse Ox 96 08/30/23 07:22 FiO2 Intake & Output 08/29/23 08/30/23 08/30/23 18:59 06:59 18:59 Intake Total 240 Output Total 2200 1100 Balance -1959 -1099 Intake: Oral 240 Output: Urine 2200 1100 Other: Voiding Method Indwelling Catheter Indwelling Catheter Indwelling Catheter - Exam GENERAL DESCRIPTION: An elderly male lying in bed in no distress RESPIRATORY SYSTEM: Unlabored breathing , decreased breath sounds at bases HEART: S1 S2 regular rate and rhythm , ABDOMEN: Soft , no tenderness EXTREMITIES: No edema feet - Labs CBC & Chem 7: 08/29/23 06:10 08/30/23 04:39 Labs: Abnormal Lab Results - Last 24 Hours (Table) 08/30/23 Range/Units 04:39 Chloride 110 H (96-109) mmol/L BUN/Creatinine Ratio 11.64 L (12.00-20.00) Ratio Calcium 8.6 L (8.7-10.3) mg/dL Assessment and Plan (1) Urinary tract infection Status: Acute Code(s): N39.0 - URINARY TRACT INFECTION, SITE NOT SPECIFIED SNOMED Code(s): 28833293 Plan: 1patient presented to the hospital with weakness dizziness and this patient who did have urinary outflow obstruction requiring self-catheterization did have a positive UA concerning for UTI with urine now showing Enterococcus which is sensitive to ampicillin 2patient has shown clinical improvement and plan to finish therapy with oral Augmentin x 5 days on discharge Dictation was produced using [employer] software. please excuse any grammatical, word or spelling errors.
== END 2023-08-30 14:52 | disposition home or self-care (01) | DRG 699 ==
LOC: EC 15:52 → 5NMEDONC 21:01
PROVIDERS: ADMIT Hospitalist; ATTEND Hospitalist
PROC: 0T9B70Z Drainage of Bladder with Drainage Device, Via Natural or Artificial Opening (ICD-10-PCS; principal; 2023-08-26)
DX: T83.518A Infection and inflammatory reaction due to other urinary catheter, initial encounter (principal); F01.54 Vascular dementia, unspecified severity, with anxiety; N39.0 Urinary tract infection, site not specified; N17.9 Acute kidney failure, unspecified; N13.8 Other obstructive and reflux uropathy; M48.061 Spinal stenosis, lumbar region without neurogenic claudication; E86.0 Dehydration; B95.2 Enterococcus as the cause of diseases classified elsewhere; M46.1 Sacroiliitis, not elsewhere classified; M16.0 Bilateral primary osteoarthritis of hip; N40.1 Benign prostatic hyperplasia with lower urinary tract symptoms; N31.8 Other neuromuscular dysfunction of bladder; E78.5 Hyperlipidemia, unspecified; R33.8 Other retention of urine; I10 Essential (primary) hypertension; K57.30 Diverticulosis of large intestine without perforation or abscess without bleeding; N35.919 Unspecified urethral stricture, male, unspecified site; Z79.899 Other long term (current) drug therapy; Z87.01 Personal history of pneumonia (recurrent); Z86.16 Personal history of COVID-19; Z87.440 Personal history of urinary (tract) infections
CPT/HCPCS: 36415; 74176; 80048; 80053; 81001; 83605; 83690; 83735; 84100; 85025; 85027; 87077; 87086; 87186; 96361; 96365; 96366; 96375; 99285

== ENCOUNTER → 2023-10-20 | Outpatient (CLI) | payer MEDICARE, OTHER ==
--- NOTE | 2023-10-20 15:29 | US ---
EXAMINATION TYPE: US carotid duplex BILAT DATE OF EXAM: 10/20/2023 COMPARISON: CLINICAL INDICATION: Male, 88 years old with history of I77.9 DISORDER OF ARTERIES AND ARTERIOLES, UN SPECI; Left neck pain. No HTN. TECHNIQUE: Carotid duplex ultrasound examination. Indirect Doppler criteria was utilized. FINDINGS: EXAM MEASUREMENTS: RIGHT: Peak Systolic Velocity (PSV) cm/sec ----- Right CCA: 32.1 ----- Right ICA: 58.1 ----- Right ECA: 65.2 ICA/CCA ratio: 1.8 RIGHT: End Diastole cm/sec ----- Right CCA: 6.9 ----- Right ICA: 17.5 ----- Right ECA: 0.0 LEFT: Peak Systolic Velocity (PSV) cm/sec ----- Left CCA: 49.5 ----- Left ICA: 62.5 ----- Left ECA: 63.8 ICA/CCA ratio: 1.3 LEFT: End Diastole cm/sec ----- Left CCA: 9.0 ----- Left ICA: 19.7 ----- Left ECA: 0.0 VERTEBRALS (direction of flow): Right Vertebral: Antegrade Left Vertebral: Antegrade Rhythm: Normal SHIRT TURNER NOTES: Bilateral wall thickening. No elevated velocities or significant stenosis. IMPRESSION: Bilateral intimal thickening with no significant hemodynamic stenosis. Criteria for Assigning % of Stenosis / Diameter reduction (Estimation based on the indirect measurements of the internal carotid artery velocities (ICA PSV). 1. Normal (no stenosis)=ICA PSV < 125 cm/s: ratio < 2.0: ICA EDV<40 cm/s. 2. Less than 50% stenosis=ICA PSV < 125 cm/s: ratio < 2.0: ICA EDV<40 cm/s. 3. 50 to 69% stenosis=ICA PSV of 125 to 230 cm/s: ration 2.0 ? 4.0: ICA EDV 40-100 cm/s. 4. Greater than 70% stenosis to near occlusion= ICA PSV > 230 cm/s: ratio > 4.0: ICA EDV > 100 cm/s. 5. Near occlusion= ICA PSV velocities may be low or undetectable: variable ratio and ICA EDV. 6. Total occlusion=unable to detect flow.
== END | disposition home or self-care (01) ==
LOC: RADUSWWP 14:29
PROVIDERS: ATTEND Family Medicine
DX: I77.9 Disorder of arteries and arterioles, unspecified (principal)
CPT/HCPCS: 93880

== ENCOUNTER → 2024-04-28 | Outpatient (CLI) | payer MEDICARE, OTHER ==
[2024-04-28 10:34] LABS: African American GFR (CKD) 58 (>60 ml/min/1.73 sqM); Blood Urea Nitrogen 25 mg/dL (9-20); Non-African American GFR(CKD) 50 (>60 ml/min/1.73 sqM)
--- NOTE | 2024-04-28 12:47 | CT ---
EXAMINATION TYPE: CT ChestAbdPelvis w con CT DLP: 792.60 mGycm, Automated exposure control for dose reduction was used. DATE OF EXAM: 04/28/2024 12:34 PM COMPARISON: CT abdomen and pelvis 08/25/2023, 02/11/2021. CLINICAL INDICATION:Male, 88 years old with history of R63.4 ABNORMAL WEIGHT LOSS; PHH, abnormal weig ht loss Technique: Multiple axial images of the chest, abdomen, and pelvis were obtained following the intrav enous administration of 100 mL Isovue-300. Oral contrast was administered. Two-dimensional coronal an d sagittal reconstructions were obtained. Findings: CHEST: LUNGS/ PLEURA: No pleural effusion, pneumothorax, focal consolidation. Posterior right lower lobe 3 m m pulmonary nodule (series 4, image 41). Right middle lobe 2 mm pulmonary nodule (series 4, image 37) . AIRWAY: Patent. 5 mm nodule in the posterior aspect of the trachea (series 4, image 17). HEART: Size within normal limits. No pericardial effusion. Small aortic valvular calcifications. MEDIASTINUM: No evidence of adenopathy. VASCULATURE: No aortic aneurysm. MUSCULOSKELETAL: No acute osseous abnormalities. No aggressive osseous lesion. 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 SOFT TISSUES/LYMPH NODES: Unremarkable. LOWER NECK: No significant findings. ABDOMEN: ABDOMEN LIVER: Several subcentimeter hypodense foci within the left hepatic lobe which are too small to marissa cterize but likely represent cysts. GALLBLADDER AND BILE DUCTS: Unremarkable. PANCREAS: Unremarkable. SPLEEN: Unremarkable. ADRENAL GLANDS: Unremarkable. KIDNEYS AND URETERS: No evidence of hydronephrosis or renal calculus. The kidneys enhance symmetrical ly. Bilateral renal cortical cysts. Largest within the right kidney measures up to 2.9 cm. Largest wi thin the left kidney superiorly measures up to 3.8 cm. Contrast is demonstrated within both collectin g systems on the delayed phase. PELVIS BLADDER: Unremarkable REPRODUCTIVE: Coarse calcifications of the prostate gland are identified. Prostate gland is enlarged measuring 6.0 cm in transverse dimension. This indents upon the urinary bladder base. ABDOMEN & PELVIS STOMACH AND BOWEL: Stomach and duodenum are unremarkable. Enteric contrast reaches the descending col on. Scattered colonic diverticulosis without evidence for acute diverticulitis. The appendix is withi n normal limits. No evidence of bowel obstruction. PERITONEUM: No evidence of pneumoperitoneum or free fluid. VASCULATURE: Minimal atherosclerotic calcifications are present throughout the abdominal aorta and it s branches. No abdominal aortic aneurysm. MUSCULOSKELETAL: No acute osseous abnormalities. Degenerative changes of the bilateral SI joints with anterior bridging. Osteoarthritic changes of both hips. Mild to moderate multilevel degenerative mirza nges of the visualized lumbar spine. LYMPH NODES: No evidence for lymphadenopathy. SOFT TISSUE/ABDOMINAL WALL: Unremarkable IMPRESSION: 1. No acute process within the chest, abdomen or pelvis. 2. Couple of pulmonary nodules measuring 3 mm or less. In a low risk patient, no follow-up is recomm ended. In a high-risk patient consider optional CT chest in 12 months. 3. Nodular density within the trachea measuring up to 5 mm. May represent secretion/debris versus tr acheal nodule. Consider direct visualization versus short-term follow-up. 4. Prostatomegaly. Correlate with PSA values. 5. Colonic diverticulosis without evidence for acute diverticulitis. [facility], , 04/28/2024 12:45 PM
== END | disposition home or self-care (01) ==
LOC: RADCTMAIN 09:53
PROVIDERS: ATTEND Family Medicine
DX: N40.0 Benign prostatic hyperplasia without lower urinary tract symptoms (principal); K57.30 Diverticulosis of large intestine without perforation or abscess without bleeding; R91.8 Other nonspecific abnormal finding of lung field; R63.4 Abnormal weight loss; J98.4 Other disorders of lung
CPT/HCPCS: 82565; 84520; 71260; 74177; 36415; Q9967